=== PATIENT | male | born 1960 | race Caucasian/White ===

== ENCOUNTER → 2018-07-11 | Outpatient (CLI) | payer BC ==
[2018-07-11 14:29] LABS: HCT 47.2 % (39.0-53.0); HGB 16.3 gm/dL (13.0-17.5); MCH 29.5 pg (25.0-35.0); MCHC 34.5 g/dL (31.0-37.0); MCV 85.6 fL (80.0-100.0); Mean Platelet Volume 6.8; Platelet Count 249 k/uL (150-450); RBC 5.51 m/uL (4.30-5.90); RDW 14.2 % (11.5-15.5); WBC 7.7 k/uL (3.8-10.6)
[2018-07-11 14:38] LABS: INR 0.9 (<1.2); Partial Thromboplastin Time 24.8 sec (22.0-30.0); Prothrombin Time 9.6 sec (9.0-12.0)
[2018-07-11 14:43] LABS: Appearance,Urine Clear (Clear); Bilirubin,Urine Negative (Negative); Blood,Urine Negative (Negative); Color,Urine Yellow; Glucose,Urine (UA) Negative (Negative); Ketones,Urine Negative (Negative); Leukocyte Esterase,Urine Negative (Negative); Nitrite,Urine Negative (Negative); Protein,Urine Negative (Negative); Specific Gravity,Urine 1.016 (1.001-1.035); Urobilinogen,Urine <2.0 mg/dL (<2.0)
== END ==
LOC: LABPAT 13:05
PROVIDERS: ATTEND Orthopaedic Surgery
DX: Z01.812 Encounter for preprocedural laboratory examination (principal)
CPT/HCPCS: 81003; 85027; 85610; 85730; 87070

== ENCOUNTER → 2018-07-11 | Outpatient (CLI) | payer BC ==
[2018-07-11 18:46] LABS: Albumin 4.3 g/dL (3.80-4.90); Albumin/Globulin Ratio 2.26 (1.60-3.17); Anion Gap 12.2 mmol/L (4.00-12.00); Calcium 9.6 mg/dL (8.7-10.3); Carbon Dioxide 27.8 mmol/L (21.6-31.8); Globulin 1.9 g/dL (1.6-3.3); Potassium 3.2 mmol/L (3.5-5.5); Total Bilirubin 0.7 mg/dL (0.2-1.2); Total Protein 6.2 g/dL (6.2-8.2); Uric Acid 8.3 mg/dL (3.7-8.7)
== END | disposition home or self-care (01) ==
LOC: LABWHC1 12:55
PROVIDERS: ATTEND Family Medicine
DX: M10.9 Gout, unspecified (principal)
CPT/HCPCS: 36415; 80053; 84550

== ENCOUNTER 2018-07-18 10:58 | Inpatient (IN) | payer BC ==
[2018-07-19] MEDS ORDERED: ceFAZolin IN SWFI 2 GM/20 ML SYRINGE IVP ONE (05:00)
[2018-07-19] MEDS ORDERED: TRANEXAMIC ACID 1,000 MG in SODIUM CHLORIDE 0.9% 100 ML IVPB ONE ×4 (05:00)
[2018-07-19] MEDS ORDERED: MIDAZOLAM 2 MG/2 ML VIAL IV PRN (05:14)
[2018-07-19] MEDS ORDERED: DEXAMETHASONE SOD PHOSPHATE 10 MG/ML 1 ML VIAL IV ONE (05:14)
[2018-07-19] MEDS ORDERED: LIDOCAINE 1% 20 ML VIAL (10MG/ML) FOR IV START INTRADERMA PRN (05:14)
[2018-07-19] MEDS ORDERED: ONDANSETRON 4 MG/2 ML VIAL IVP ONE (05:14)
[2018-07-19] MEDS ORDERED: HYDROmorphone 0.5 MG/0.5 ML SYRINGE IVP PRN ×3 (05:14→09:09)
[2018-07-19] MEDS ORDERED: SCOPOLAMINE 1.5MG/72HR PATCH TRANSDERM ONE (05:14)
[2018-07-19] MEDS ORDERED: ROPIVACAINE 246.25 MG, EPINEPHrine 0.5 MG, KETOROLAC 30 MG, cloNIDine HCL/PF 80 MCG, WA... MISCELLANE ONE ×5 (05:53)
[2018-07-19] MEDS ORDERED: ACETAMINOPHEN TAB 500 MG TAB PO ONE (07:30)
[2018-07-19] MEDS ORDERED: MELOXICAM 7.5 MG TAB PO ONE (07:30)
[2018-07-19] MEDS: LACTATED RINGERS 1,000 ML IV SCH ×2 (08:04→09:33)
[2018-07-19] MEDS ORDERED: HYDROcodone/APAP 5-325MG 1 EACH TAB PO PRN (09:09)
[2018-07-19] MEDS ORDERED: HYDROmorphone 1 MG/ML 1 ML SYRINGE IVP PRN (09:09)
[2018-07-19] MEDS ORDERED: DIAZEPAM 5 MG TAB PO PRN (09:09)
[2018-07-19] MEDS ORDERED: NALOXONE 0.4 MG/ML 1 ML VIAL IV PRN (09:09)
[2018-07-19] MEDS ORDERED: MAGNESIUM HYDROXIDE 2,400 MG/10 ML CUP PO PRN (09:09)
[2018-07-19] MEDS ORDERED: ONDANSETRON 4 MG/2 ML VIAL IVP PRN (09:09)
[2018-07-19] MEDS ORDERED: HEPARIN SODIUM,PORCINE 10,000 UNIT/ML 1 ML VIAL ONE (09:39)
[2018-07-19] MEDS ORDERED: TRANEXAMIC ACID 1,000 MG/10 ML VIAL ONE (09:39)
[2018-07-19] MEDS ORDERED: SODIUM CHLORIDE 0.9% 100 ML BAG ONE (09:39)
[2018-07-19] MEDS ORDERED: PROPOFOL 10 MG/ML 20 ML VIAL IV ONE (09:39)
[2018-07-19] MEDS ORDERED: fentaNYL (PF) 50 MCG/ML 2 ML AMP ONE (09:39)
[2018-07-19] MEDS ORDERED: LACTATED RINGERS 1,000 ML BAG IV ONE (09:39)
[2018-07-19] MEDS ORDERED: MIDAZOLAM 2 MG/2 ML VIAL ONE (09:39)
[2018-07-19] MEDS ORDERED: ceFAZolin 3,000 MG in SODIUM CHLORIDE 0.9% IRRIGATIO 3,000 ML IRRIGATION ONE (09:44)
--- NOTE | 2018-07-19 11:26 | P.OP ---
Date of Procedure: 07/19/18 Preoperative Diagnosis: Severe osteoarthritis left hip Postoperative Diagnosis: Severe osteoarthritis left hip Procedure(s) Performed: Left total hip arthroplasty with a direct anterior approach Implants: Delgado and nephew Polarstem size 4 standard Delgado & Nephew R3, 3 hole acetabular shell, 56 mm Delgado & Nephew reflection 6.5 mm cancellus screw, 20 mm 2 Delgado & Nephew R3, XLPE 20 acetabular liner Delgado & Nephew Oxinium femoral head 36 m, +4 All components were press-fit. The articulation is Oxinium on polyethylene. Anesthesia: spinal Surgeon: Genaro Casey Sales Contractor #1: Amy Dorado Estimated Blood Loss (ml): 600 (210 mL returned with Cell Saver) Pathology: other (Femoral head) Condition: stable Disposition: PACU Indications for Procedure: After failure of conservative treatment we discussed the surgical and nonsurgical treatment options at length. Patient wishes to proceed with a total hip arthroplasty with a direct anterior approach. Complications specific to this procedure were discussed at length, including but not limited to infection, leg length discrepancy, dislocation, and nerve injury. Patient is aware of all these complications and informed consent was obtained Operative Findings: The operative findings are consistent with severe osteoarthritis of the left hip Description of Procedure: Patient was seen and evaluated in the preoperative area, consent was reviewed, and the surgical site was marked with a skin marker. Patient was then brought to the operating room and given prophylactic antibiotics intravenously. 1 g of Tranexamic acid was also given. A spinal anesthetic was administered by the anesthesia department. The patient was then placed on the Dupont table with the bony prominences well-padded. The hip area was then prepped and draped in usual sterile fashion. A universal timeout was then performed, which confirmed the patient's name, surgical site, ALLERGIES, and procedure being performed. Next the incision site was located at 1 cm distal and 1 cm lateral to the anterior superior iliac spine. The skin and subcutaneous tissues were sharply incised. Incision was carefully dissected down to the fascia overlying the tensor fascia florida muscle. This fascia was then incised in line with the incision. Next, using blunt finger dissection, the tensor fascia florida muscle was dissected off its investing fascia. The muscle was then carefully retracted laterally with a cobra retractor over the lateral neck of the femur. Next, the circumflex vessels were identified and cauterized using the AquaMantis device. The anterior hip capsule was then exposed. The capsule was then opened and an inverted T fashion. Cobra retractors were then placed intracapsularly. The proximal femur was then visualized. The femoral neck was then osteotomized appropriate level above the lesser trochanter. Small amount of traction was placed with the Dupont table. A small wedge of bone was then removed from the remaining femoral head. Next, using a corkscrew femoral head was easily removed from the acetabulum. On gross visual inspection, the femoral head had complete loss of articular cartilage in multiple periarticular osteophytes. Attention was then turned to the acetabulum. the acetabulum was exposed and any remaining labrum was excised. Sequential reaming of the acetabulum was performed using fluoroscopic guidance. When the appropriate size was reached, a trial was then placed. The position and fit of the trial was checked with fluoroscopy. The trial was then removed. Then, using fluoroscopic guidance, the final implant was impacted at 20 of anteversion and 40 of abduction, and fully seated in the acetabulum. 2 screws were then placed in the acetabulum. Again fluoroscopy was used to check position of the screws. Next, the liner was then impacted, with a 20 elevated liner located in the anterior superior quadrant. Component locking was confirmed. Attention was then directed to the femur. With the aid of the Dupont table, the femur was externally rotated to approximately 130, extended, and abducted under the opposite leg. A side hook was then placed under the proximal femur, and the side hook elevator was used to elevate the proximal femur. Retractors were then placed. A capsular release was performed, as well as a release of the conjoined tendon, which afforded excellent visualization of the proximal femur. Next, a box osteotome was used to lateralize the proximal femur. A aging room hand was then used to locate the femoral canal. Sequential broaching was then performed with appropriate size which afforded excellent fixation in the proximal femur. A trial was then placed with appropriate head and neck, and the hip was gently reduced with the aid of the Dupont table. Fluoroscopy was then used to check position of the components, as well as to ensure equal leg lengths. The hip was then gently dislocated and the trials were then removed. Final implants were then impacted and the hip was again reduced. Final fluoroscopic x-rays confirmed that the components were in anatomic position, as well as equal leg lengths. The hip was also taken through range of motion, and found to be stable. The hip was then copiously irrigated with antibiotic solution with pulsatile lavage. The hip was then irrigated with Irrisept solution. The soft tissues were then injected with a ropivacaine solution, which consisted of 246.25 mg of ropivacaine, 0.5 mg of epinephrine, 30 mg of Toradol, 80 g of clonidine, and 48.45 mL of sterile water, for a total of 100 mL of fluid injected. A second dose of 1 g of Tranexamic acid was also given. the fascia was then closed with 2-0 strata fix suture. The subcutaneous tissue was closed with 3-0 Vicryl. The subcuticular tissue was closed with 3-0 strata fix suture. The skin was then closed with Dermabond glue and a sterile silver dressing. The patient was then transferred to the recovery room in stable condition. The broker assistant CARISSA Cardenas was required due to the complexity of surgery, and the need for skilled surgical territory manager for positioning, draping, exposure, retraction, and closure of the wound.
[2018-07-19] MEDS ORDERED: LACTATED RINGERS 1,000 ML IV ONE (11:51)
--- NOTE | 2018-07-19 12:33 | XR ---
EXAMINATION TYPE: XR Hip Limited LT DATE OF EXAM: 07/19/2018 COMPARISON: NONE HISTORY: 57-year-old male status post hip surgery, assess surgical alignment TECHNIQUE: Single AP view FINDINGS: Image shows placement of left hip total arthroplasty. Both acetabular cup and femoral short stemmed c omponents of the prosthesis are well-seated and no periprosthetic fracture. There is some prominent o verhanging bone along the lateral aspect of the acetabular cup component. Alignment grossly anatomic. Scattered soft tissue air related to recent operation. IMPRESSION: Uncomplicated postoperative appearance left total hip arthroplasty.
[2018-07-19] MEDS: SODIUM CHLORIDE 0.9% 1,000 ML IV SCH (12:57)
[2018-07-19 13:15] VITALS: BMI 35.6
--- NOTE | 2018-07-19 13:22 | XR ---
Limited left hip HISTORY: Hip replacement 2 intraoperative C-arm images document the procedure.
--- NOTE | 2018-07-19 13:22 | FL ---
Fluoroscopy HISTORY: Hip replacement 63 seconds fluoroscopy time supplied to the referring clinician. 2 intraoperative C-arm images docum ent the procedure. See dictated report from orthopedic surgery.
[2018-07-19] MEDS: ceFAZolin IN SWFI 2 GM/20 ML SYRINGE IVP SCH (16:00)
[2018-07-19] MEDS: HYDROcodone/APAP 5-325MG 1 EACH TAB PO PRN ×2 (17:44→22:49)
[2018-07-19] MEDS: ASPIRIN 325 MG TAB PO SCH (20:40)
[2018-07-19] MEDS ORDERED: SENNOSIDES-DOCUSATE SODIUM 1 EACH TAB PO SCH (21:00)
[2018-07-19] MEDS: hydrOXYzine PAMOATE 25 MG CAP PO PRN (22:49)
[2018-07-20] MEDS: ceFAZolin IN SWFI 2 GM/20 ML SYRINGE IVP SCH (00:12)
[2018-07-20] MEDS: SODIUM CHLORIDE 0.9% 1,000 ML IV SCH (00:14)
--- NOTE | 2018-07-20 02:51 | CONS ---
CONSULTATION DATE OF CONSULTATION: July 19, 2018. REASON FOR CONSULTATION: Medical management requested by Dr. Casey. CONSULTATION: This is a pleasant 57-year-old patient of Dr. Trivedi who has undergone a left total hip arthroplasty. Postprocedure pain is controlled. No nausea, vomiting. No chest pain. Denies any cardiac history. Patient lying in bed. The patient's pain has been coming on for some time, progressively got worse, necessitating the need for orthopedic surgery. Patient had been taking pain medications. It was worse with activity and better with rest. REVIEW OF SYSTEMS: CONSTITUTIONAL: None. HEENT: None. RESPIRATORY: None. CARDIOVASCULAR: None. GASTROINTESTINAL: None. GENITOURINARY: None. MUSCULOSKELETAL: Arthritic pain in the joints. DERMATOLOGICAL, HEMATOLOGIC, LYMPHATIC: none. PSYCHIATRY none. NEUROLOGICAL: None. PAST MEDICAL HISTORY: Of hypertension,osteoarthritis, skin cancer, bleeding from the colon. PAST SURGICAL HISTORY: Colonoscopy, hemorrhoidectomy, vasectomy, carpal tunnel to the left wrist. SOCIAL HISTORY: Does not smoke or drink alcohol. FAMILY HISTORY: Reviewed. Noncontributory to presentation. HOME MEDICATIONS: 1. Potassium 20 mEq a day. 2. Omeprazole 20 mg a day. 3. Motrin 800 mg q.h.s. p.r.n. 4. Hydrochlorothiazide 25 mg a day. 5. Allopurinol 100 mg a day. 6. Tylenol 650 mg q.6h. ALLERGIES: None. PHYSICAL EXAMINATION: VITAL SIGNS: Temperature 97.5, pulse 100, respiration 17, blood pressure 116/72, pulse ox 93 percent on room air. GENERAL APPEARANCE: Well built. BMI 34.9. Lying in bed, awake. Comfortable. EYES: Pupils are equal. Conjunctivae normal. HEENT: External appearance of nose and ears normal. Oral cavity normal. NECK: JVD not raised. Mass not palpable. RESPIRATORY: Effort normal. LUNGS: Are clear. CARDIOVASCULAR: 1st and 2nd sounds normal. No edema. ABDOMEN: Soft, nontender. Liver and spleen not palpable. PSYCHIATRY: Alert and oriented x3. Mood and affect normal. NEUROLOGICAL: Pupils equal. Cranial nerves grossly intact. Power and sensation grossly intact. EXTREMITIES: Dressing over the left hip. INVESTIGATIONS: Lab work from 07/11/2018, white count 7.7, hemoglobin 15.3, potassium 3.2, repeat 3.4, creatinine 1.0. ASSESSMENT: 1. Left total knee arthroplasty. 2. Obesity, BMI 34.9. 3. Essential hypertension. 4. Primary osteoarthritis. PLAN: Home medications are resumed. The patient is on aspirin for DVT prophylaxis. Pain control is in place. Getting IV fluids. Venodyne boots in place. Care was discussed with the patient. Questions were answered. Thank you Dr. Casey. Copy to Dr. Trivedi. MMODL / IJN: [id number] /
[2018-07-20] MEDS: ASPIRIN 325 MG TAB PO SCH (07:31)
[2018-07-20] MEDS: hydrOXYzine PAMOATE 25 MG CAP PO PRN (07:31)
[2018-07-20] MEDS: HYDROcodone/APAP 5-325MG 1 EACH TAB PO PRN (07:31)
[2018-07-20 08:09] LABS: Basophils % (A) 0 %; Eosinophils % (A) 0 %; HCT 37.5 % (39.0-53.0); Lymphocytes # (A) 1.3 k/uL (1.0-4.8); Lymphocytes % (A) 9 %; MCH 29.2 pg (25.0-35.0); MCHC 34.1 g/dL (31.0-37.0); MCV 85.6 fL (80.0-100.0); Mean Platelet Volume 7.1; Monocytes # (A) 0.8 k/uL (0-1.0); Monocytes % (A) 5 %; Neutrophils # (A) 12.6 k/uL (1.3-7.7); Neutrophils % (A) 85 %; Platelet Count 264 k/uL (150-450); RBC 4.39 m/uL (4.30-5.90); RDW 13.8 % (11.5-15.5); WBC 14.9 k/uL (3.8-10.6)
[2018-07-20 08:13] LABS: HGB 12.8 gm/dL (13.0-17.5)
--- NOTE | 2018-07-20 08:40 | P.DS ---
Providers Date of admission: 07/19/18 07:42 Expected date of discharge: 07/20/18 Attending physician: Genaro Casey Consults: 07/19/18 09:09 Consult Physician Routine Consulting Provider: Victor Manuel Trivedi Consult Reason/Comments: medical management Do you want consulting provider notified?: Yes 07/19/18 12:02 Consult Physician Routine Consulting Provider: Mateusz Galarza Consult Reason/Comments: medical managment Do you want consulting provider notified?: Yes Primary care physician: Victor Manuel Trivedi - Discharge Diagnosis(es) (1) Osteoarthritis of left hip Current Visit: Yes Status: Acute (2) Status post total hip replacement, left Current Visit: Yes Status: Acute Hospital Course: This is a 57-year-old male with known history of degenerative arthritis of the left hip. The patient presents for evaluation. After discussion and consideration patient elects to proceed with total hip arthroplasty. The patient is seen preoperatively by Dr. Casey and medically cleared for surgery by their primary care physician. Patient is admitted to [facility] on 07/19/2018 for total hip arthroplasty. The procedures performed without complication or sequelae. The patient is doing well postoperatively. Labs and vital signs are stable on day of discharge. On day of discharge patient's hip incision is healing well. There is minimal erythema. There is no drainage noted at this time. There is minimal soft tissue swelling to the hip and thigh. Patient has full foot and ankle motion without difficulty or pain. Calf is soft and nontender to palpation. Neurovascular status to the left lower extremity is intact. Patient is discharged home in good condition. Opioid start talking form is reviewed and signed at patient bedside. Please see med rec for accurate list of home medications. Plan - Discharge Summary Discharge Rx Participant: No New Discharge Prescriptions: New Aspirin 325 mg PO BID #60 tab HYDROcodone/APAP 5-325MG [[place] 5-325] 1 - 2 tab PO Q6HR PRN #56 tab PRN Reason: Pain Sennosides [Senokot] 1 tab PO BID #60 tablet No Action Ibuprofen [Motrin Ib] 800 mg PO HS PRN PRN Reason: Pain Hydrochlorothiazide 25 mg PO DAILY Allopurinol [Zyloprim] 100 - 300 mg PO DAILY Acetaminophen Tab [Tylenol Tab] 650 mg PO Q6H PRN PRN Reason: Pain Omeprazole 20 mg PO DAILY Potassium Bicarbonate/Cit AC [Potassium 25 Meq Tablet Eff] 1 tab PO DAILY Discharge Medication List Acetaminophen Tab [Tylenol Tab] 650 mg PO Q6H PRN 07/12/18 [History] Allopurinol [Zyloprim] 100 - 300 mg PO DAILY 07/12/18 [History] Hydrochlorothiazide 25 mg PO DAILY 07/12/18 [History] Ibuprofen [Motrin Ib] 800 mg PO HS PRN 07/12/18 [History] Omeprazole 20 mg PO DAILY 07/19/18 [History] Potassium Bicarbonate/Cit AC [Potassium 25 Meq Tablet Eff] 1 tab PO DAILY 07/19/18 [History] Aspirin 325 mg PO BID #60 tab 07/20/18 [Rx] HYDROcodone/APAP 5-325MG [[place] 5-325] 1 - 2 tab PO Q6HR PRN #56 tab 07/20/18 [Rx] Sennosides [Senokot] 1 tab PO BID #60 tablet 07/20/18 [Rx] Follow up Appointment(s)/Referral(s): Genaro Casey DO [Doctor of Osteopathic Medicine] - 2 Weeks Activity/Diet/Wound Care/Special Instructions: Weightbearing as tolerated with walker. Leave dressing intact. Dressing may be removed by home care nurse or by patient in 10 days. May shower with dressing on. Please follow-up with [facility] in 2 weeks and call with any questions or concerns, . Discharge Disposition: HOME WITH HOME HEALTH SERVICES
[2018-07-20] MEDS ORDERED: MELOXICAM 7.5 MG TAB PO SCH (09:00)
[2018-07-20 09:11] VITALS: BP 133/78; PULSE 78; RESP 16; TEMP 98.2
== END 2018-07-20 11:07 | disposition home health service (06) | DRG 470 ==
LOC: 2ORMAIN 07-19 07:42 → 4SSUR 07-19 11:55
PROVIDERS: ADMIT Orthopaedic Surgery; ATTEND Orthopaedic Surgery
PROC: 30233N0 Transfusion of Autologous Red Blood Cells into Peripheral Vein, Percutaneous Approach (ICD-10-PCS; 2018-07-19)
PROC: 0SRB06A Replacement of Left Hip Joint with Oxidized Zirconium on Polyethylene Synthetic Substitute, Uncemented, Open Approach (ICD-10-PCS; principal; 2018-07-19 09:20)
DX: M16.12 Unilateral primary osteoarthritis, left hip (principal); I10 Essential (primary) hypertension; Z68.34 Body mass index [BMI] 34.0-34.9, adult; E66.9 Obesity, unspecified; Z79.899 Other long term (current) drug therapy; Z85.828 Personal history of other malignant neoplasm of skin; Z82.49 Family history of ischemic heart disease and other diseases of the circulatory system
CPT/HCPCS: 73501; 84132; 85025; 86850; 86891; 86900; 86901; 88300

== ENCOUNTER 2018-07-25 19:15 | Inpatient (IN) | payer BC ==
[2018-07-25] MEDS ORDERED: chlorproMAZINE 25 MG/ML 2 ML AMP IM STA (19:46)
[2018-07-25 19:59] LABS: Basophils # (A) 0.1 k/uL (0-0.2); Basophils % (A) 1 %; Eosinophils # (A) 0.5 k/uL (0-0.7); Eosinophils % (A) 3 %; HCT 40.1 % (39.0-53.0); HGB 13.7 gm/dL (13.0-17.5); Lymphocytes # (A) 1.7 k/uL (1.0-4.8); Lymphocytes % (A) 11 %; MCH 28.9 pg (25.0-35.0); MCHC 34.1 g/dL (31.0-37.0); MCV 84.7 fL (80.0-100.0); Mean Platelet Volume 6.3; Monocytes # (A) 0.7 k/uL (0-1.0); Monocytes % (A) 4 %; Neutrophils # (A) 12.3 k/uL (1.3-7.7); Neutrophils % (A) 80 %; Platelet Count 457 k/uL (150-450); RBC 4.74 m/uL (4.30-5.90); RDW 13.7 % (11.5-15.5); WBC 15.4 k/uL (3.8-10.6)
--- NOTE | 2018-07-25 19:59 | ED ---
SOB HPI - General Source: patient, RN notes reviewed Mode of arrival: ambulatory Limitations: no limitations - History of Present Illness MD Complaint: shortness of breath <Michael Mcconnell - Last Filed: 07/25/18 21:08> <Paloma Au - Last Filed: 07/25/18 23:39> - General Chief Complaint: Shortness of Breath Stated Complaint: sob, hiccups following hip Sx Time Seen by Provider: 07/25/18 19:36 - History of Present Illness Initial Comments: This a 57-year-old male who had a left hip replacement done 6 days ago who since that time is had hiccups with last several days being constant. This morning he had diaphoretic pale and started developing shortness of breath. He was seen by his doctor. EKG which apparently looked okay his some blood work which is okay. But again he had profound sweats and clamminess per his . He also has some anterior chest and abdominal pain he thinks likely because of the hiccups. Never had this before he does have a ventral hernia states his abdomen. He does apparently have clotting tendencies he states was blood. He has a history of GI bleed in the past. He currently is not on any anticoagulants. His other complaints at this time (Michael Mcconnell) - Related Data Home Medications Medication Instructions Recorded Confirmed Allopurinol [Zyloprim] 100 mg PO TID 07/12/18 07/25/18 Chlorthalidone 25 mg PO DAILY 07/25/18 07/25/18 Omeprazole [PriLOSEC] 40 mg PO DAILY 07/25/18 07/25/18 Potassium Chloride [Klor-Con 10] 10 meq PO DAILY 07/25/18 07/25/18 Sennosides [Senokot] 1 tab PO DAILY 07/25/18 07/25/18 Previous Rx's Medication Instructions Recorded Aspirin 325 mg PO BID #60 tab 07/20/18 HYDROcodone/APAP 5-325MG [[place] 1 - 2 tab PO Q6HR PRN #56 tab 07/20/18 5-325] Allergies Allergy/AdvReac Type Severity Reaction Status Date / Time No Known Allergies Allergy Verified 07/25/18 20:04 Review of Systems ROS Other: All systems not noted in ROS Statement are negative. <Michael Mcconnell - Last Filed: 07/25/18 21:08> ROS Other: All systems not noted in ROS Statement are negative. <Paloma Au Shanice - Last Filed: 07/25/18 23:39> ROS Statement: Those systems with pertinent positive or pertinent negative responses have been documented in the HPI. Past Medical History Past Medical History: Cancer, Hypertension, Osteoarthritis (OA) Additional Past Medical History / Comment(s): SKIN CANCER ," HAD BLEEDING FROM COLON HIGH DOSE OF ASPIRIN HISTORY, History of Any Multi-Drug Resistant Organisms: None Reported Past Surgical History: Orthopedic Surgery Additional Past Surgical History / Comment(s): COLONOSCOPY, HEMORRHOIDECTOMY, VASECTOMY, CARPAL TUNNEL LEFT WRIST, left hip surgery Past Anesthesia/Blood Transfusion Reactions: No Reported Reaction Past Psychological History: No Psychological Hx Reported Smoking Status: Never smoker Past Alcohol Use History: None Reported Past Drug Use History: None Reported - Past Family History Mother Family Medical History: No Reported History <Michael Mcconnell - Last Filed: 07/25/18 21:08> General Exam Limitations: no limitations General appearance: alert, anxious Head exam: Present: atraumatic, normocephalic, normal inspection Eye exam: Present: normal appearance, PERRL, EOMI. Absent: scleral icterus, conjunctival injection, periorbital swelling ENT exam: Present: normal exam, mucous membranes moist Neck exam: Present: normal inspection. Absent: tenderness, meningismus, lymphadenopathy Respiratory exam: Present: normal lung sounds bilaterally. Absent: respiratory distress, wheezes, rales, rhonchi, stridor Cardiovascular Exam: Present: regular rate, normal rhythm, normal heart sounds. Absent: systolic murmur, diastolic murmur, rubs, gallop, clicks GI/Abdominal exam: Present: soft, normal bowel sounds, other (Bentyl hernia as noted). Absent: distended, tenderness, guarding, rebound, rigid Extremities exam: Present: normal inspection, full ROM, normal capillary refill. Absent: tenderness, pedal edema, joint swelling, calf tenderness Back exam: Present: normal inspection Neurological exam: Present: alert, oriented X3, CN II-XII intact Psychiatric exam: Present: normal affect, normal mood Skin exam: Present: warm, intact, normal color, diaphoretic. Absent: rash <Michael Mcconnell - Last Filed: 07/25/18 21:08> - General Exam Comments Initial Comments: This is a well-developed well-nourished awake alert oriented 3 male the patient demonstrating hiccups at this time. He was prescribed Bentyl without any relief. (Michael Mcconnell) Course Vital Signs 07/25/18 07/25/18 07/25/18 19:18 19:21 20:43 Temperature 98.6 F Pulse Rate 98 Respiratory 18 18 20 Rate Blood Pressure 135/88 O2 Sat by Pulse 100 Oximetry Medical Decision Making - Lab Data Result diagrams: 07/25/18 19:50 07/25/18 19:50 - EKG Data -: EKG Interpreted by Me EKG shows normal: sinus rhythm (Sinus rhythm with marked amount of artifact rate was 90. Interval 160 QRS duration 94 QT since QTC 476/[address] configuration prolonged QT EKG performed during the patient having recurrent hiccups) <Michael Mcconnell - Last Filed: 07/25/18 21:08> - Lab Data Result diagrams: 07/25/18 19:50 07/25/18 19:50 <Paloma Au - Last Filed: 07/25/18 23:39> - Medical Decision Making Patient care was signed out to me by Dr. Mcconnell, patient presented with intractible hiccups for 6 days s/p hip surgery, today patient had episode of chest pain, diaphoresis and SOB. Asians initial EKG was nonischemic, troponin was negative d-dimer was significantly elevated, at the time of sign out patient was hemodynamically stable awaiting computed tomography scan results. Computed tomography scan resulted with no acute pulmonary pathology. Patient was treated with Valium for consistent hiccups. When the patient's age and risk factors I discussed with the patient and he was agreeable with the plan for observation for further evaluation of chest pain. (Paloma Au) - Lab Data Lab Results 07/25/18 07/25/18 07/25/18 Range/Units 19:50 19:50 19:50 WBC 15.4 H (3.8-10.6) k/uL RBC 4.74 (4.30-5.90) m/uL Hgb 13.7 (13.0-17.5) gm/dL Hct 40.1 (39.0-53.0) % MCV 84.7 (80.0-100.0) fL MCH 28.9 (25.0-35.0) pg MCHC 34.1 (31.0-37.0) g/dL RDW 13.7 (11.5-15.5) % Plt Count 457 H (150-450) k/uL Neutrophils % 80 % Lymphocytes % 11 % Monocytes % 4 % Eosinophils % 3 % Basophils % 1 % Neutrophils # 12.3 H (1.3-7.7) k/uL Lymphocytes # 1.7 (1.0-4.8) k/uL Monocytes # 0.7 (0-1.0) k/uL Eosinophils # 0.5 (0-0.7) k/uL Basophils # 0.1 (0-0.2) k/uL PT 9.4 (9.0-12.0) sec INR 0.9 (<1.2) APTT 25.4 (22.0-30.0) sec D-Dimer 4.06 H (<0.60) mg/L FEU Sodium 138 (137-145) mmol/L Potassium 3.4 L (3.5-5.1) mmol/L Chloride 97 L (98-107) mmol/L Carbon Dioxide 29 (22-30) mmol/L Anion Gap 12 mmol/L BUN 21 H (9-20) mg/dL Creatinine 0.91 (0.66-1.25) mg/dL Est GFR (CKD-EPI)AfAm >90 (>60 ml/min/1.73 sqM) Est GFR (CKD-EPI)NonAf >90 (>60 ml/min/1.73 sqM) Glucose 113 H (74-99) mg/dL Calcium 9.6 (8.4-10.2) mg/dL Total Bilirubin 1.2 (0.2-1.3) mg/dL AST 44 (17-59) U/L ALT 58 (21-72) U/L Alkaline Phosphatase 96 (38-126) U/L Troponin I (0.000-0.034) ng/mL NT-Pro-B Natriuret Pep pg/mL Total Protein 6.7 (6.3-8.2) g/dL Albumin 3.9 (3.5-5.0) g/dL 07/25/18 07/25/18 Range/Units 19:50 19:50 WBC (3.8-10.6) k/uL RBC (4.30-5.90) m/uL Hgb (13.0-17.5) gm/dL Hct (39.0-53.0) % MCV (80.0-100.0) fL MCH (25.0-35.0) pg MCHC (31.0-37.0) g/dL RDW (11.5-15.5) % Plt Count (150-450) k/uL Neutrophils % % Lymphocytes % % Monocytes % % Eosinophils % % Basophils % % Neutrophils # (1.3-7.7) k/uL Lymphocytes # (1.0-4.8) k/uL Monocytes # (0-1.0) k/uL Eosinophils # (0-0.7) k/uL Basophils # (0-0.2) k/uL PT (9.0-12.0) sec INR (<1.2) APTT (22.0-30.0) sec D-Dimer (<0.60) mg/L FEU Sodium (137-145) mmol/L Potassium (3.5-5.1) mmol/L Chloride (98-107) mmol/L Carbon Dioxide (22-30) mmol/L Anion Gap mmol/L BUN (9-20) mg/dL Creatinine (0.66-1.25) mg/dL Est GFR (CKD-EPI)AfAm (>60 ml/min/1.73 sqM) Est GFR (CKD-EPI)NonAf (>60 ml/min/1.73 sqM) Glucose (74-99) mg/dL Calcium (8.4-10.2) mg/dL Total Bilirubin (0.2-1.3) mg/dL AST (17-59) U/L ALT (21-72) U/L Alkaline Phosphatase (38-126) U/L Troponin I <0.012 (0.000-0.034) ng/mL NT-Pro-B Natriuret Pep 20 pg/mL Total Protein (6.3-8.2) g/dL Albumin (3.5-5.0) g/dL Disposition <Michael Mcconnell - Last Filed: 07/25/18 21:08> <Paloma Au - Last Filed: 07/25/18 23:39> Referrals: Victor Manuel Trivedi MD [Primary Care Provider] - 1-2 days
[2018-07-25 20:13] LABS: INR 0.9 (<1.2); Partial Thromboplastin Time 25.4 sec (22.0-30.0); Prothrombin Time 9.4 sec (9.0-12.0)
[2018-07-25 20:15] LABS: ALT 58 U/L (21-72); AST 44 U/L (17-59); Albumin 3.9 g/dL (3.5-5.0); Alkaline Phosphatase 96 U/L (38-126); Anion Gap 12 mmol/L; Blood Urea Nitrogen 21 mg/dL (9-20); Calcium 9.6 mg/dL (8.4-10.2); Carbon Dioxide 29 mmol/L (22-30); Chloride 97 mmol/L (98-107); Glucose 113 mg/dL (74-99); Potassium 3.4 mmol/L (3.5-5.1); Sodium 138 mmol/L (137-145); Total Bilirubin 1.2 mg/dL (0.2-1.3); Total Protein 6.7 g/dL (6.3-8.2)
[2018-07-25 20:21] LABS: D-Dimer 4.06 mg/L FEU (<0.60)
--- NOTE | 2018-07-25 20:37 | XR ---
EXAMINATION TYPE: XR chest 2V DATE OF EXAM: 07/25/2018 COMPARISON: NONE HISTORY: Shortness of breath. Recent surgery. TECHNIQUE: Frontal and lateral views of the chest are obtained. FINDINGS: Overlying EKG leads are seen. There is no focal air space opacity, pleural effusion, or pn eumothorax seen. The cardiac silhouette size is within normal limits. Bridging osteophytes in thorac ic spine are noted. IMPRESSION: No acute cardiopulmonary process.
[2018-07-25] MEDS ORDERED: DIAZEPAM 5 MG TAB PO STA (22:01)
--- NOTE | 2018-07-25 22:12 | CT ---
EXAMINATION TYPE: CT angio chest DATE OF EXAM: 07/25/2018 COMPARISON: CT chest May 20, 2012 HISTORY: Dyspnea and hiccups. CT DLP: 528.2 mGycm. Automated Exposure Control for Dose Reduction was Utilized. CONTRAST: CTA scan of the thorax is performed with IV Contrast, patient injected with 75ml mL of Isovue 370, pu lmonary embolism protocol. MIP Images are created on CT scanner and reviewed. FINDINGS: LUNGS: Dependent atelectasis bilateral lower lungs is present. No suspicious focal consolidation is s een. No pleural effusion or pneumothorax is noted bilaterally. No suspicious pulmonary masses are see n. MEDIASTINUM: There is satisfactory enhancement of the pulmonary artery and its branches, there is no CT evidence for pulmonary embolism. There are no greater than 1 cm hilar or mediastinal lymph nodes. No cardiomegaly or pericardial effusion is seen. Main pulmonary artery is dilated at 3.3 cm axial image 59. Adjacent ascending aorta measures up to 3.7 cm in diameter. OTHER: Small hiatal hernia is present. There are a few hypodense lesions scattered throughout the terri er likely reflecting thin-walled cysts, there is a more nodular peripheral enhancing lesion favoring small hemangioma near largest thin-walled cyst right hepatic lobe posterior segment axial image 138. There is probable second similar smaller lesion inferior to this near axial image 146. [id number] roverto multilevel spurring in the thoracic spine is present. IMPRESSION: 1. No CT evidence for acute pulmonary embolism. 2. No suspicious acute pulmonary process. 3. Nonspecific right hepatic liver lesion slightly larger from prior study, suspect hemangioma adjace nt to thin-walled cyst.
[2018-07-25] MEDS ORDERED: NALOXONE 0.4 MG/ML 1 ML VIAL IV PRN (22:44)
[2018-07-25] MEDS ORDERED: diphenhydrAMINE 50 MG/ML 1 ML VIAL IVP STA (22:48)
[2018-07-25] MEDS ORDERED: METOCLOPRAMIDE 5 MG/ML 2 ML VIAL IVP STA (22:48)
[2018-07-26] MEDS: LORazepam 2 MG/ML INJ IV PRN ×3 (04:03→20:38)
[2018-07-26 09:10] VITALS: BMI 35.4
--- NOTE | 2018-07-26 09:44 | P.CRDCN ---
History of Present Illness Consult date: 07/26/18 Requesting physician: Mateusz Galarza Consult reason: shortness of breath Chief complaint: Hiccups History of present illness: This is a pleasant 57-year-old gentleman who underwent left hip surgery on Wednesday of last week, since then he has had constant hiccups. Patient also has been having episodes of shortness of breath which the states is unsure if it's related to the head, Had an Episode Where He Became Diaphoretic and Pale. For This Reason He Was Brought to the Hospital for Further Evaluation. Patient Does Have a History of a Blood Clotting Disorder, He States That He Was Put on 2 Aspirins a Proximally 15 Years Ago and Had GI Bleeding. He Also Has a History of a Ventral Hernia. Patient Has a Strong Family History of Premature Coronary Artery Disease in His Father Who Had a Myocardial Infarction at the Age of 40. He Is a Nonsmoker, No Hypertension, No Diabetes, No Hyperlipidemia. Chest X-Ray Does Not Reveal Any Acute Cardiopulmonary Process. CTA of the Chest Was Performed on Arrival Here Which Was Negative for PE. EKGs were difficult to obtain because of the hiccups, overall shows normal sinus rhythm with no acute changes. Blood pressure 134/80 with a heart rate in the 80s, 95% on room air. Low-grade temperature last evening of 99.7. White blood cell count 15.4, hemoglobin 13.7, platelet count 457. D-dimer 4.0, sodium 138, potassium 3.4, BUN 21 and creatinine 0.9. Initial troponin 0.012. Patient was started on Thorazine, Valium, Benadryl, and Ativan in hopes to control the hiccups. Past Medical History Past Medical History: Cancer, Hypertension, Osteoarthritis (OA) Additional Past Medical History / Comment(s): SKIN CANCER ," HAD BLEEDING FROM COLON HIGH DOSE OF ASPIRIN HISTORY, History of Any Multi-Drug Resistant Organisms: None Reported Past Surgical History: Orthopedic Surgery Additional Past Surgical History / Comment(s): COLONOSCOPY, HEMORRHOIDECTOMY, VASECTOMY, CARPAL TUNNEL LEFT WRIST, left hip surgery Past Anesthesia/Blood Transfusion Reactions: No Reported Reaction Past Psychological History: No Psychological Hx Reported Smoking Status: Never smoker Past Alcohol Use History: None Reported Past Drug Use History: None Reported - Past Family History Mother Family Medical History: No Reported History Medications and Allergies Home Medications Medication Instructions Recorded Confirmed Type Allopurinol [Zyloprim] 100 mg PO TID 07/12/18 07/25/18 History Aspirin 325 mg PO BID #60 tab 07/20/18 07/25/18 Rx HYDROcodone/APAP 5-325MG [[place] 1 - 2 tab PO Q6HR PRN #56 tab 07/20/18 07/25/18 Rx 5-325] Chlorthalidone 25 mg PO DAILY 07/25/18 07/25/18 History Omeprazole [PriLOSEC] 40 mg PO DAILY 07/25/18 07/25/18 History Potassium Chloride [Klor-Con 10] 10 meq PO DAILY 07/25/18 07/25/18 History Sennosides [Senokot] 1 tab PO DAILY 07/25/18 07/25/18 History Allergies Allergy/AdvReac Type Severity Reaction Status Date / Time No Known Allergies Allergy Verified 07/25/18 20:04 Physical Exam Vitals: Vital Signs Temp Pulse Pulse Resp BP BP Pulse Ox 07/26/18 09:07 98.6 F 82 18 134/80 95 07/26/18 06:18 99.7 F H 91 16 146/82 95 07/26/18 05:50 98.6 F 86 19 119/78 98 07/26/18 04:00 89 16 125/82 94 L 07/25/18 23:59 82 18 134/68 99 07/25/18 20:43 20 07/25/18 19:21 18 07/25/18 19:18 98.6 F 98 18 135/88 100 Intake and Output 07/25/18 07/26/18 07/26/18 22:59 06:59 14:59 Other: Weight 115.212 kg 112.9 kg PHYSICAL EXAMINATION: GENERAL: 57-year-old gentleman in no acute distress at the time of my examination, he is having frequent hiccups. HEENT: Head is atraumatic, normocephalic. Pupils equal, round. Sclera a nicteric. Conjunctiva are clear. Mucous membranes of the mouth are moist. Neck is supple. There is no elevated jugular venous pressure no carotid bruit is heard. HEART EXAMINATION: Heart S1, S2 normal. No murmur or gallop heard. CHEST EXAMINATION: Lungs are clear to auscultation and precussion. No chest wall tenderness is noted on palpation or with deep breathing. ABDOMEN: Soft, nontender. Bowel sounds are heard. No organomegaly noted. EXTREMITIES: 2+ peripheral pulses with no evidence of peripheral edema and no calf tenderness noted. NEUROLOGIC patient is awake, alert and oriented 3 . . Results 07/25/18 19:50 07/25/18 19:50 Cardiac Enzymes 07/25/18 07/25/18 Range/Units 19:50 19:50 AST 44 (17-59) U/L Troponin I <0.012 (0.000-0.034) ng/mL Coagulation 07/25/18 Range/Units 19:50 PT 9.4 (9.0-12.0) sec APTT 25.4 (22.0-30.0) sec CBC 07/25/18 Range/Units 19:50 WBC 15.4 H (3.8-10.6) k/uL RBC 4.74 (4.30-5.90) m/uL Hgb 13.7 (13.0-17.5) gm/dL Hct 40.1 (39.0-53.0) % Plt Count 457 H (150-450) k/uL Comprehensive Metabolic Panel 07/25/18 Range/Units 19:50 Sodium 138 (137-145) mmol/L Potassium 3.4 L (3.5-5.1) mmol/L Chloride 97 L (98-107) mmol/L Carbon Dioxide 29 (22-30) mmol/L BUN 21 H (9-20) mg/dL Creatinine 0.91 (0.66-1.25) mg/dL Glucose 113 H (74-99) mg/dL Calcium 9.6 (8.4-10.2) mg/dL AST 44 (17-59) U/L ALT 58 (21-72) U/L Alkaline Phosphatase 96 (38-126) U/L Total Protein 6.7 (6.3-8.2) g/dL Albumin 3.9 (3.5-5.0) g/dL Current Medications Generic Name Dose Route Start Last Admin Trade Name Freq PRN Reason Stop Dose Admin Lorazepam 0.5 mg 07/25/18 22:44 07/26/18 08:58 Ativan IV 0.5 mg Q6HR PRN Administration Anxiety Naloxone HCl 0.2 mg 07/25/18 22:44 Narcan IV Q2M PRN Opioid Reversal Intake and Output 07/25/18 07/26/18 07/26/18 22:59 06:59 14:59 Other: Weight 115.212 kg 112.9 kg 07/25/18 19:50 07/25/18 19:50 EKG Interpretations (text) EKG shows normal sinus rhythm with nonspecific ST-T wave changes, significant amount of artifact secondary to hiccups Assessment and Plan Plan: Assessment and plan #1 pickups, with a brief episode of shortness of breath with associated diaphoresis. CTA of the chest negative for pulmonary embolism. EKG shows normal sinus rhythm with nonspecific ST-T wave changes and significant amount of artifact secondary to headache. Troponin 1 negative #2 family history of premature coronary artery disease #3 recent left hip surgery one week ago #4 persistent hiccups for one week duration Plan Patient's presentation does not appear to be cardiac in nature. We will obtain an echocardiogram with Doppler study and 2 subsequent troponins. Further recommendations to follow. DNP note has been reviewed, I agree with a documented findings and plan of care. Patient was seen and examined.
[2018-07-26 11:45] LABS: Glucose,Whole Blood 136 mg/dL (75-99)
--- NOTE | 2018-07-26 12:09 | P.CONS ---
History of Present Illness - Reason for Consult Consult date: 07/26/18 Hiccups Requesting physician: Mateusz Galarza - Chief Complaint Hiccups difficulty breathing - History of Present Illness 57-year-old gentleman recent left hip surgery a week ago admitted with persistent hiccups since surgery, new onset of diaphoresis shortness of breath. Consult requested for hiccups. White count 15.4. Hemoglobin 13.7. Platelet 457. D-dimer 4.0. INR 0.9. LFTs within normal limits. CT chest small hiatal hernia. No PE. No acute pulmonary process. Nonspecific right hepatic liver lesion suspect hemangioma adjacent to thin-walled cyst. No history of hiccups. Patient states when he awakened from surgery last week he started to have some hiccups but did not bring it to the attention of his healthcare providers. Once discharged hiccups persisted and increased in frequency. He has been unable to sleep however that has not changed his appe tite. Denies abdominal pain fever chills hematemesis hematochezia or melena. ER provided dose of Thorazine without improvement. Review of Systems Constitutional: Denies fever, chills, sweats, weight gain, or loss. HEENT: Negative for migraines, blurred vision or loss, earaches, drainage, tinnitus, oral mucosal lesions, dysphagia, or odynophagia. Cardiac: Negative for chest pain, arrhythmias, or palpitation. Respiratory: Admitted with shortness of breath, denies hemoptysis, cough, or sputum production. Gastrointestinal: See HPI for pertinent findings. Genitourinary: Negative for hematuria, urgency, frequency, polyuria, dysuria, or penile discharge. Musculoskeletal: Negative for muscle aches, swelling, arthritis, and arthralgias. Neurologic: Negative for stroke or TIA. Endocrine: Negative for thyroid problems. Skin: Negative for rash or itching. Psychiatric: Negative history for depression and anxiety Past Medical History Past Medical History: Cancer, Hypertension, Osteoarthritis (OA) Additional Past Medical History / Comment(s): SKIN CANCER ," HAD BLEEDING FROM COLON HIGH DOSE OF ASPIRIN HISTORY, History of Any Multi-Drug Resistant Organisms: None Reported Past Surgical History: Orthopedic Surgery Additional Past Surgical History / Comment(s): COLONOSCOPY, HEMORRHOIDECTOMY, VASECTOMY, CARPAL TUNNEL LEFT WRIST, left hip surgery Past Anesthesia/Blood Transfusion Reactions: No Reported Reaction Past Psychological History: No Psychological Hx Reported Smoking Status: Never smoker Past Alcohol Use History: None Reported Past Drug Use History: None Reported - Past Family History Mother Family Medical History: No Reported History Medications and Allergies Home Medications Medication Instructions Recorded Confirmed Type Allopurinol [Zyloprim] 100 mg PO TID 07/12/18 07/25/18 History Aspirin 325 mg PO BID #60 tab 07/20/18 07/25/18 Rx HYDROcodone/APAP 5-325MG [[place] 1 - 2 tab PO Q6HR PRN #56 tab 07/20/18 07/25/18 Rx 5-325] Chlorthalidone 25 mg PO DAILY 07/25/18 07/25/18 History Omeprazole [PriLOSEC] 40 mg PO DAILY 07/25/18 07/25/18 History Potassium Chloride [Klor-Con 10] 10 meq PO DAILY 07/25/18 07/25/18 History Sennosides [Senokot] 1 tab PO DAILY 07/25/18 07/25/18 History Allergies Allergy/AdvReac Type Severity Reaction Status Date / Time No Known Allergies Allergy Verified 07/25/18 20:04 Physical Exam Vitals: Vital Signs Temp Pulse Pulse Resp BP BP Pulse Ox 07/26/18 11:49 98.6 F 92 18 135/80 96 07/26/18 09:07 98.6 F 82 18 134/80 95 07/26/18 06:18 99.7 F H 91 16 146/82 95 07/26/18 05:50 98.6 F 86 19 119/78 98 07/26/18 04:00 89 16 125/82 94 L 07/25/18 23:59 82 18 134/68 99 07/25/18 20:43 20 07/25/18 19:21 18 07/25/18 19:18 98.6 F 98 18 135/88 100 Intake and Output 07/25/18 07/26/18 07/26/18 22:59 06:59 14:59 Other: Weight 115.212 kg 112.9 kg General appearance: The patient is alert, oriented, in no acute distress. Hiccups present. HET: Head is normocephalic and atraumatic. Pupils are equal and reactive. Oropharynx is clear without lesions. Neck: Supple without lymphadenopathy. Trachea midline. Heart: S1 S2. Regular rate and rhythm. Lungs: No crackles or wheezes are heard. Abdomen: Soft, nontender, nondistended with bowel sounds. No peritoneal signs. No palpable organomegaly or masses. Extremities: Normal skin color and turgor. No cyanosis, rash, ulceration, clubbing, or edema. Radial and pedal pulses are 2/4 bilaterally. Neurological: No focal deficits. Strength and sensation are grossly intact. Results CBC & Chem 7: 07/28/18 09:24 07/28/18 09:24 Labs: Abnormal Lab Results - Last 24 Hours (Table) 07/25/18 07/25/18 07/25/18 Range/Units 19:50 19:50 19:50 WBC 15.4 H (3.8-10.6) k/uL Plt Count 457 H (150-450) k/uL Neutrophils # 12.3 H (1.3-7.7) k/uL D-Dimer 4.06 H (<0.60) mg/L FEU Potassium 3.4 L (3.5-5.1) mmol/L Chloride 97 L (98-107) mmol/L BUN 21 H (9-20) mg/dL Glucose 113 H (74-99) mg/dL POC Glucose (mg/dL) (75-99) mg/dL 07/26/18 Range/Units 11:36 WBC (3.8-10.6) k/uL Plt Count (150-450) k/uL Neutrophils # (1.3-7.7) k/uL D-Dimer (<0.60) mg/L FEU Potassium (3.5-5.1) mmol/L Chloride (98-107) mmol/L BUN (9-20) mg/dL Glucose (74-99) mg/dL POC Glucose (mg/dL) 136 H (75-99) mg/dL CT scan - chest: report reviewed (Dr. Miranda) Assessment and Plan (1) Intractable hiccups Narrative/Plan: 57-year-old male presents with intractable hiccups developed postoperatively status post recent left hip surgery 1 week ago. Etiology unclear. Current Visit: Yes Status: Acute Code(s): R06.6 - HICCOUGH SNOMED Code(s): 87380053 (2) Status post total hip replacement, left Current Visit: No Status: Acute Code(s): Z96.642 - PRESENCE OF LEFT ARTIFICIAL HIP JOINT SNOMED Code(s): 907695083233 (3) Hemangioma of liver Narrative/Plan: Per CT. Normal liver function tests. Current Visit: Yes Status: Acute Code(s): D18.03 - HEMANGIOMA OF INTRA- ABDOMINAL STRUCTURES SNOMED Code(s): 50347213 Plan: 1. Family is wondering if hiccups are related to perioperative experience anesthetic and/or spinal anesthesia. Recommend consult anesthesia services. Continue with supportive measures GI prophylaxis Protonix 40 mg daily. Light diet as tolerated. Agents such as Reglan, thorazine and Haldol have been used successfully in treatment of hiccups. Consideration for inpatient EGD will discuss with anesthesia services. Thank you for this kind referral and the opportunity to participate in the care of your patient. This consultation was discussed with Dr. Miranda. The impression and plan of care have been directed as dictated.
--- NOTE | 2018-07-26 12:43 | ECHOF ---
Referral Reason:chest pain MEASUREMENTS -------- HEIGHT: 180.3 cm WEIGHT: 112.5 kg BP: 134/80 RVIDd: 2.7 cm (< 3.3) IVSd: 1.2 cm (0.6 - 1.1) LVIDd: 5.3 cm (3.9 - 5.3) LVPWd: 1.1 cm (0.6 - 1.1) IVSs: 1.5 cm LVIDs: 3.8 cm LVPWs: 1.5 cm LA Diam: 2.6 cm (2.7 - 3.8) Ao Diam: 3.4 cm (2.0 - 3.7) AV Cusp: 2.1 cm (1.5 - 2.6) LA Diam: 2.8 cm (2.7 - 3.8) MV EXCURSION: 15.488 mm (> 18.000) MV EF SLOPE: 113 mm/s (70 - 150) EPSS: 0.8 cm MV E Andi: 0.79 m/s MV DecT: 196 ms MV A Andi: 0.93 m/s MV E/A Ratio: 0.85 RAP: 5.00 mmHg RVSP: 8.61 mmHg FINDINGS -------- Sinus rhythm. This was a technically adequate study. The left ventricular size is normal. There is mild concentric left ventricular hypertrophy. Overa ll left ventricular systolic function is normal with, an EF between 55 - 60 %. The right ventricle is normal in size. The left atrial size is normal. The right atrial size is normal. The aortic valve is trileaflet, and appears structurally normal. No aortic stenosis or regurgitation. The mitral valve is normal. Mild mitral regurgitation is present. Mild tricuspid regurgitation present. Right ventricular systolic pressure is normal at < 35 mmHg. There is no evidence of pulmonary hypertension. Trace/mild (physiologic) pulmonic regurgitation. The aortic root is mildy dilated, up to 3.8 cm. Normal inferior vena cava with normal inspiratory collapse consistent with estimated right atrial pre ssure of 5 mmHg. There is no pericardial effusion. CONCLUSIONS -------- 1. Sinus rhythm. 2. This was a technically adequate study. 3. The left ventricular size is normal. 4. There is mild concentric left ventricular hypertrophy. 5. Overall left ventricular systolic function is normal with, an EF between 55 - 60 %. 6. The left atrial size is normal. 7. The aortic valve is trileaflet, and appears structurally normal. No aortic stenosis or regurgitati on. 8. Mild mitral regurgitation is present. 9. Mild tricuspid regurgitation present. 10. Right ventricular systolic pressure is normal at < 35 mmHg. 11. Trace/mild (physiologic) pulmonic regurgitation. 12. The aortic root is mildy dilated, up to 3.8 cm. 13. There is no pericardial effusion. SHREDDER/GRANULATOR OPERATOR: Jayy De Luna RDCS
[2018-07-26] MEDS ORDERED: CALCIUM CARBONATE LIQUID 500 MG/5 ML CUP PO STA (14:05)
[2018-07-26] MEDS: ENOXAPARIN 40 MG/0.4 ML SYRINGE SQ SCH (14:32)
[2018-07-26] MEDS: PANTOPRAZOLE 40 MG TABLET PO SCH (15:37)
[2018-07-26] MEDS: BACLOFEN 10 MG TAB PO SCH ×2 (15:37→20:38)
[2018-07-26] MEDS: METOCLOPRAMIDE 5 MG/ML 2 ML VIAL IVP SCH ×2 (15:37→17:09)
[2018-07-26] MEDS: ALLOPURINOL 100 MG TAB PO SCH ×2 (15:37→20:38)
[2018-07-26] MEDS: CALCIUM CARBONATE LIQUID 500 MG/5 ML CUP PO SCH (17:19)
[2018-07-26] MEDS: SENNOSIDES 8.6 MG TAB PO SCH (17:20)
[2018-07-26] MEDS: METOCLOPRAMIDE ORAL SOLN 10 MG/10 ML CUP PO SCH (22:03)
--- NOTE | 2018-07-26 23:25 | HP ---
HISTORY AND PHYSICAL DATE OF ADMISSION: 07/25/2018 PRESENTING COMPLAINT: Hiccups. HISTORY OF PRESENTING COMPLAINT: This is a pleasant 57-year-old patient who was just in the hospital and went home on 07/20/2018. Patient underwent left total hip arthroplasty. He did well and was discharged home on [place], aspirin. Patient does take allopurinol at home. Patient started having intractable hiccups and was very slightly short of breath. The patient did have a CT. There was no PE. He had a 2-D echocardiogram that was unremarkable. He was admitted for the same. I saw the patient earlier today and did stop patient's aspirin, started him on Lovenox. I did put him on baclofen and Reglan to see that would help the symptoms. Also GI was consulted, who saw the patient again this evening. The patient's symptoms are only slightly improved. He is still having hiccups. REVIEW OF SYSTEMS: CONSTITUTIONAL: None. HEENT: None. RESPIRATORY: None. CARDIOVASCULAR: None. GASTROINTESTINAL: As above. GENITOURINARY: None. MUSCULOSKELETAL: Pain in the joints. DERMATOLOGICAL: None. HEMATOLOGICAL: None. LYMPHATICS: None. PSYCHIATRY: None. NEUROLOGICAL: None. PAST MEDICAL HISTORY: 1. Hypertension. 2. Osteoarthritis. 3. Skin cancer. 4. Bleeding from the colon. PAST SURGICAL HISTORY: 1. Colonoscopy. 2. Hemorrhoidectomy. 3. Vasectomy. 4. Carpal tunnel, left wrist. SOCIAL HISTORY: Does not smoke or drink alcohol. FAMILY HISTORY: Reviewed; noncontributory to presentation. HOME MEDICATIONS: 1. Senokot 1 tablet p.o. daily. 2. Klor-Con 10 mEq p.o. daily. 3. [place] 5 one to two tablets q.6 p.r.n. 4. Chlorthalidone 25 mg p.o. daily. 5. Allopurinol 100 mg p.o. t.i.d. 6. Prilosec 40 mg p.o. daily. 7. Aspirin 325 p.o. daily. ALLERGIES: NONE. PHYSICAL EXAMINATION: Temperature 98.6, pulse 92, respiration 18, blood pressure 135/80, pulse ox 96% on room air. GENERAL APPEARANCE: Well built; BMI 34.9. Sitting up with hiccups. EYES: Pupils equal. Conjunctivae normal. HEENT: External appearance of nose and ears normal. Oral cavity normal. NECK: JVD not raised. Mass not palpable. RESPIRATORY: Effort normal. Lungs are clear. CARDIOVASCULAR: First and second sounds normal. No edema. ABDOMEN: Soft, non-tender. Liver and spleen not palpable. LYMPHATIC: No lymph node palpable in neck or axillae. PSYCHIATRY: Alert and oriented x3. Mood and affect normal. NEUROLOGICAL: Pupils equal. Cranial nerves grossly intact. Power and sensation grossly intact. MUSCULOSKELETAL: Evidence of osteoarthritis. INVESTIGATIONS: White count 15.4, hemoglobin 13.7, potassium 3.4, BUN 21, creatinine 0.91. Troponin x3 negative. Two-D echo shows preserved LV function. EKG tracing, personally reviewed by me, shows poor baseline quality. Chest x-ray film, personally reviewed by me, shows no obvious infiltrates. ASSESSMENT: 1. Persistent hiccups, having failed outpatient treatment. It could be both from gastric irritation and/or from a phrenic nerve irritation from recent anesthesia. 2. Obesity with body mass index of 34.9. 3. Recent left total hip arthroplasty. 4. Hypokalemia; potassium 3.4. 5. Leukocytosis, likely from surgery. 6. Thrombocytosis; platelets of 457, from recent surgery. PLAN: Opinion was sought from Cardiology; nothing further to add from them. Also GI was consulted. Will start the patient on scheduled baclofen and will also try Reglan. Aspirin has been discontinued. We will try Lovenox. If patient does not respond to the same, then we may have to try invasive procedures. As this condition can often be rather relentless, expect the patient to stay in the hospital at least for 2 nights to watch his respiratory status that it does not progressively get worse. MMODL / IJN: [id number] /
[2018-07-27] MEDS: BACLOFEN 10 MG TAB PO SCH ×4 (03:47→21:10)
[2018-07-27] MEDS: PANTOPRAZOLE 40 MG TABLET PO SCH (06:19)
[2018-07-27] MEDS: METOCLOPRAMIDE ORAL SOLN 10 MG/10 ML CUP PO SCH ×4 (06:19→21:09)
[2018-07-27] MEDS: CALCIUM CARBONATE LIQUID 500 MG/5 ML CUP PO SCH ×3 (06:19→17:42)
[2018-07-27 06:34] LABS: Basophils # (A) 0.1 k/uL (0-0.2); Basophils % (A) 1 %; Eosinophils # (A) 0.2 k/uL (0-0.7); Eosinophils % (A) 2 %; HGB 11.9 gm/dL (13.0-17.5); Lymphocytes # (A) 1.5 k/uL (1.0-4.8); Lymphocytes % (A) 12 %; MCH 28.9 pg (25.0-35.0); MCHC 34.1 g/dL (31.0-37.0); Mean Platelet Volume 6.2; Monocytes # (A) 0.6 k/uL (0-1.0); Monocytes % (A) 5 %; Neutrophils # (A) 10.5 k/uL (1.3-7.7); Neutrophils % (A) 81 %; Platelet Count 433 k/uL (150-450); RBC 4.11 m/uL (4.30-5.90); RDW 13.7 % (11.5-15.5)
[2018-07-27 06:43] LABS: Anion Gap 10 mmol/L; Blood Urea Nitrogen 18 mg/dL (9-20); Calcium 9.4 mg/dL (8.4-10.2); Carbon Dioxide 30 mmol/L (22-30); Chloride 97 mmol/L (98-107); Glucose 99 mg/dL (74-99); Potassium 3.4 mmol/L (3.5-5.1); Sodium 137 mmol/L (137-145)
[2018-07-27] MEDS: ALLOPURINOL 100 MG TAB PO SCH ×3 (08:13→21:11)
[2018-07-27] MEDS: SENNOSIDES 8.6 MG TAB PO SCH (08:13)
[2018-07-27] MEDS: ENOXAPARIN 40 MG/0.4 ML SYRINGE SQ SCH (08:14)
--- NOTE | 2018-07-27 08:31 | P.PN ---
Subjective On-call hospitalist covering Dr. Galarza starting on 07/27/2018 This is a pleasant 57 years old male with past medical history of hypertension and osteoarthritis, who had recent left total hip arthroplasty about one week ago, after the surgery patient was starting to have he cups which were mild, progressively got worse and he decided to come to the hospital. Patient states that he cups comes in bouts whenever he takes deep breath. However during my encounter patient did not have any headache Smoked. However patient denies chest pain. No dyspnea. No abdominal pain. He is tolerating his diet well. He had regular bowel movement, with no nausea or vomiting. Patient has some mild leukocytosis of 15.4, down to 13 K. Which looks hemodilution normal. Patient had mild fever yesterday of 99.7. His heart rate was around [address] Patient had [address] angiogram of the abdomen which showing no PE, [facility] [employer] has been consulted for dyspnea. There recommended echo and suspect noncardiac causes GI team evaluated the patient, as per Dr. Galarza order. And the recommended anesthesia service consult and to continue with supportive measures with Protonix, advance diet as tolerated and he isn't H such as Reglan, Thorazine or Haldol. Patient is already on Reglan. I discussed medication with him and he wants to continue with Ritalin for now. GI team also recommended Anesthesia team consult, Which was called. Review of systems CONSTITUTIONAL: No fever, no malaise, no fatigue. HEENT: No recent visual problems or hearing problems. Denied any sore throat. CARDIOVASCULAR: No orthopnea, PND, no palpitations, no syncope. PULMONARY: No shortness of breath, no cough, no hemoptysis. GASTROINTESTINAL: No diarrhea, no nausea, no vomiting, no abdominal pain. Normoactive bowel sounds. NEUROLOGICAL: No headaches, no weakness, no numbness. HEMATOLOGICAL: Denies any bleeding or petechiae. GENITOURINARY: Denies any burning micturition, frequency, or urgency. MUSCULOSKELETAL/RHEUMATOLOGICAL: Denies any joint pain, swelling, or any muscle pain. ENDOCRINE: Denies any polyuria or polydipsia. Medication: Allopurinol, baclofen, Tums, Lovenox, Ativan, Reglan, Narcan, Protonix, Senokot. Add Levaquin Objective - Vital Signs Vital signs: Vital Signs Temp 98.5 F 07/26/18 20:00 Pulse 86 07/27/18 04:00 Resp 17 07/27/18 04:00 BP 144/81 07/27/18 04:00 Pulse Ox 97 07/27/18 04:00 Intake & Output 07/26/18 07/27/18 07/27/18 18:59 06:59 18:59 Intake Total 1080 Balance 1080 Weight 112.4 kg Intake: Oral 1080 Other: # Voids 2 2 - Exam GENERAL: The patient is alert and oriented x3, not in any acute distress. Well developed, well nourished. HEENT: Pupils are round and equally reacting to light. EOMI. No scleral icterus. No conjunctival pallor. Normocephalic, atraumatic. No pharyngeal erythema. No thyromegaly. CARDIOVASCULAR: S1 and S2 present. No murmurs, rubs, or gallops. PULMONARY: Chest is clear to auscultation, no wheezing or crackles. ABDOMEN: Soft, nontender, nondistended, normoactive bowel sounds. No palpable o rganomegaly. MUSCULOSKELETAL: No joint swelling or deformity. EXTREMITIES: No cyanosis, clubbing, or pedal edema. NEUROLOGICAL: Gross neurological examination did not reveal any focal deficits. SKIN: No rashes. - Labs CBC & Chem 7: 07/27/18 05:32 07/27/18 05:32 Labs: Abnormal Lab Results - Last 24 Hours (Table) 07/26/18 07/27/18 07/27/18 Range/Units 11:36 05:32 05:32 WBC 13.0 H (3.8-10.6) k/uL RBC 4.11 L (4.30-5.90) m/uL Hgb 11.9 L (13.0-17.5) gm/dL Hct 35.0 L (39.0-53.0) % Neutrophils # 10.5 H (1.3-7.7) k/uL Potassium 3.4 L (3.5-5.1) mmol/L Chloride 97 L (98-107) mmol/L POC Glucose (mg/dL) 136 H (75-99) mg/dL Assessment and Plan Assessment: Postoperative hiccups He had leukocytosis, mild with mild fever Mild SIRS syndrome, with leukocytosis, mild fever, mild tachycardia and tachypnea. Possible sepsis, could be related to gastritis, or gastroenteritis versus other. GI team was consulted by Dr. Galarza Right Liver lesions seen on CT angio of the thorax ,Slightly larger from prior study, suspect hemangioma adjacent to thin-walled cyst. Follow-up as an outpatient Dehydration, improvement Essential hypertension History of osteoarthritis Status post recent left hip arthroplasty about one week prior to hospitalization Plan: This is a pleasant 57 years old male who presents with pickups, possible sepsis. Continue with IV fluids. We'll order antibiotic in form of Levaquin. Monitor WBC and temperature. Monitor patient's symptoms. GI input is appreciated. Cardiology evaluated the patient already. Continue with supportive measures and symptomatic treatment as per GI recommendations. we'll call anesthesia consult.Labs and medication were reviewed.. Continue same treatment. Continue with symptomatic treatment. Resume home medication. Monitor lytes and vitals. DVT and GI prophylaxis. Further recommendations of the clinical course of the patient DVT prophylaxis: Subcutaneous Lovenox GI Prophylaxis: Ppi Prognosis is guarded
[2018-07-27] MEDS ORDERED: LEVOFLOXACIN 500MG-D5W PMX 500 MG in DEXTROSE/WATER 1 100ML.BAG IVPB SCH (09:00)
[2018-07-27] MEDS: DEXTROSE 5%-0.9% NACL 1,000 ML IV SCH ×2 (09:30→23:12)
--- NOTE | 2018-07-27 11:00 | P.PN ---
Subjective Progress Note Date: 07/27/18 Principal diagnosis: Intractable hiccups Hiccups still present. Reglan ordered. Anesthesia consulted. Denies abdominal pain. No N/V. Objective - Vital Signs Vital signs: Vital Signs Temp 97.8 F 07/27/18 08:00 Pulse 77 07/27/18 08:00 Resp 18 07/27/18 08:00 BP 127/84 07/27/18 08:00 Pulse Ox 97 07/27/18 08:00 Intake & Output 07/26/18 07/27/18 07/27/18 18:59 06:59 18:59 Intake Total 1080 Balance 1080 Weight 112.4 kg Intake: Oral 1080 Other: # Voids 2 2 - Exam General appearance: The patient is alert, oriented, in no acute distress. Hiccups present. HET: Head is normocephalic and atraumatic. Pupils are equal and reactive. Oropharynx is clear without lesions. Neck: Supple without lymphadenopathy. Trachea midline. Heart: S1 S2. Regular rate and rhythm. Lungs: No crackles or wheezes are heard. Abdomen: Soft, nontender, nondistended with bowel sounds. No peritoneal signs. No palpable organomegaly or masses. Extremities: Normal skin color and turgor. No cyanosis, rash, ulceration, clubbing, or edema. Radial and pedal pulses are 2/4 bilaterally. Neurological: No focal deficits. Strength and sensation are grossly intact. - Labs CBC & Chem 7: 07/28/18 09:24 07/28/18 09:24 Labs: Abnormal Lab Results - Last 24 Hours (Table) 07/26/18 07/27/18 07/27/18 Range/Units 11:36 05:32 05:32 WBC 13.0 H (3.8-10.6) k/uL RBC 4.11 L (4.30-5.90) m/uL Hgb 11.9 L (13.0-17.5) gm/dL Hct 35.0 L (39.0-53.0) % Neutrophils # 10.5 H (1.3-7.7) k/uL Potassium 3.4 L (3.5-5.1) mmol/L Chloride 97 L (98-107) mmol/L POC Glucose (mg/dL) 136 H (75-99) mg/dL Assessment and Plan (1) Intractable hiccups Narrative/Plan: 57-year-old male presents with intractable hiccups developed postoperatively status post recent left hip surgery 1 week ago. Etiology unclear. Current Visit: Yes Status: Acute Code(s): R06.6 - HICCOUGH SNOMED Code(s): 89510241 (2) Status post total hip replacement, left Current Visit: No Status: Acute Code(s): Z96.642 - PRESENCE OF LEFT ARTIFICIAL HIP JOINT SNOMED Code(s): 542375268633 (3) Hemangioma of liver Narrative/Plan: Per CT. Normal liver function tests. Current Visit: Yes Status: Acute Code(s): D18.03 - HEMANGIOMA OF INTRA-ABD OMINAL STRUCTURES SNOMED Code(s): 95937032 Plan: 1. Continue with supportive measures GI prophylaxis Protonix 40 mg daily. Light diet as tolerated. Anesthesia consulted. Continue Reglan 10 mg AC/HS. Patient advised to f/u with GI office regarding liver hemangiomas. Assessment and plan a care discussed with Dr. Miranda
--- NOTE | 2018-07-27 14:10 | P.PN ---
Subjective Progress Note Date: 07/27/18 This is a pleasant 57-year-old gentleman who underwent left hip surgery on Wednesday of last week, since then he has had constant hiccups. Patient also has been having episodes of shortness of breath which the states is unsure if it's related to the head, Had an Episode Where He Became Diaphoretic and Pale. For This Reason He Was Brought to the Hospital for Further Evaluation. Patient Does Have a History of a Blood Clotting Disorder, He States That He Was Put on 2 Aspirins a Proximally 15 Years Ago and Had GI Bleeding. He Also Has a History of a Ventral Hernia. Patient Has a Strong Family History of Premature Coronary Artery Disease in His Father Who Had a Myocardial Infarction at the Age of 40. He Is a Nonsmoker, No Hypertension, No Diabetes, No Hyperlipidemia. Chest X-Ray Does Not Reveal Any Acute Cardiopulmonary Process. CTA of the Chest Was Performed on Arrival Here Which Was Negative for PE. EKGs were difficult to obtain because of the hiccups, overall shows normal sinus rhythm with no acute changes. Blood pressure 134/80 with a heart rate in the 80s, 95% on room air. Low-grade temperature last evening of 99.7. White blood cell count 15.4, hemoglobin 13.7, platelet count 457. D-dimer 4.0, sodium 138, potassium 3.4, BUN 21 and creatinine 0.9. Initial troponin 0.012. Patient was started on Thorazine, Valium, Benadryl, and Ativan in hopes to control the hiccups. 07/27/2018 Patient was seen and examined this morning, just prior to surrounding on him he had eaten some peanut butter, he states that he has not had any hiccups since that time. Echo revealed an ejection fraction of 55-60%. Objective - Vital Signs Vital signs: Vital Signs Temp 98.3 F 07/27/18 12:00 Pulse 76 07/27/18 12:00 Resp 16 07/27/18 12:00 BP 139/87 07/27/18 12:00 Pulse Ox 97 07/27/18 12:00 Intake & Output 07/26/18 07/27/18 07/27/18 18:59 06:59 18:59 Intake Total 1080 480 Balance 1080 480 Weight 112.4 kg Intake: Oral 1080 480 Other: # Voids 2 2 1 - Exam PHYSICAL EXAMINATION: GENERAL: 57-year-old gentleman in no acute distress at the time of my examination, he is having frequent hiccups. HEENT: Head is atraumatic, normocephalic. Pupils equal, round. Sclera anicteric. Conjunctiva are clear. Mucous membranes of the mouth are moist. Neck is supple. There is no elevated jugular venous pressure no carotid bruit is heard. HEART EXAMINATION: Heart S1, S2 normal. No murmur or gallop heard. CHEST EXAMINATION: Lungs are clear to auscultation and precussion. No chest wall tenderness is noted on palpation or with deep breathing. ABDOMEN: Soft, nontender. Bowel sounds are heard. No organomegaly noted. EXTREMITIES: 2+ peripheral pulses with no evidence of peripheral edema and no calf tenderness noted. NEUROLOGIC patient is awake, alert and oriented 3 . . - Labs CBC & Chem 7: 07/27/18 05:32 07/27/18 05:32 Labs: Abnormal Lab Results - Last 24 Hours (Table) 07/27/18 07/27/18 Range/Units 05:32 05:32 WBC 13.0 H (3.8-10.6) k/uL RBC 4.11 L (4.30-5.90) m/uL Hgb 11.9 L (13.0-17.5) gm/dL Hct 35.0 L (39.0-53.0) % Neutrophils # 10.5 H (1.3-7.7) k/uL Potassium 3.4 L (3.5-5.1) mmol/L Chloride 97 L (98-107) mmol/L Assessment and Plan Plan: Assessment and plan #1 pickups, with a brief episode of shortness of breath with associated diaphoresis. CTA of the chest negative for pulmonary embolism. EKG shows normal sinus rhythm with nonspecific ST-T wave changes and significant amount of artifact secondary to headache. Troponin 1 negative #2 family history of premature coronary artery disease #3 recent left hip surgery one week ago #4 persistent hiccups for one week duration Plan Patient's presentation did not appear to be cardiac in nature. Echo revealed normal left ventricular systolic function. From our perspective, we will follow this patient along with you now on an as-needed basis only, please don't he sitate to call with any questions. DNP note has been reviewed, I agree with a documented findings and plan of care. Patient was seen and examined.
[2018-07-27] MEDS: LORazepam 2 MG/ML INJ IV PRN ×2 (15:57→21:10)
[2018-07-27] MEDS ORDERED: HALOPERIDOL 5 MG TAB PO STA (18:46)
[2018-07-27] MEDS: chlorproMAZINE 25 MG TAB PO SCH ×2 (18:51→23:12)
--- NOTE | 2018-07-27 20:15 | P.PAINCN ---
History of Present Illness - Reason for Consult Consult date: 07/27/18 - History of Present Illness This is 57 years old male, with a chief complaint of continuous hiccups , started immediately after patient had left total hip arthroplasty, according to the patient the symptoms started when he transferred to his room, and patient was discharged home and the intensity of the hiccups increased, patient had diagnostic tests to rule out PE which was negative for PE, patient had no history of hiccups in the past, patient denies any other associated symptoms with his second except of some facial sweating , patient denies any headache he denies any visual changes, denies any motor or sensory deficit he denies any numbness or tingling sensation, patient reported that since he was discharged f rom the hospital last week, the intensity of the hiccups increased in frequency, and patient not able to sleep secondary to the hiccups, he denies any fever or chills and no hematochezia no melena, patient was treated with Thorazine in the emergency room without benefit, and he is currently on Reglan, baclofen, Protonix pump inhibitor, [place], none of these medication helpful improve his hiccups Past Medical History Past Medical History: Cancer, Hypertension, Osteoarthritis (OA) Additional Past Medical History / Comment(s): SKIN CANCER ," HAD BLEEDING FROM COLON HIGH DOSE OF ASPIRIN HISTORY, History of Any Multi-Drug Resistant Organisms: None Reported Past Surgical History: Orthopedic Surgery Additional Past Surgical History / Comment(s): COLONOSCOPY, HEMORRHOIDECTOMY, VASECTOMY, CARPAL TUNNEL LEFT WRIST, left hip surgery Past Anesthesia/Blood Transfusion Reactions: No Reported Reaction Past Psychological History: No Psychological Hx Reported Smoking Status: Never smoker Past Alcohol Use History: None Reported Past Drug Use History: None Reported - Past Family History Mother Family Medical History: No Reported History Medications and Allergies Home Medications Medication Instructions Recorded Confirmed Type Allopurinol [Zyloprim] 100 mg PO TID 07/12/18 07/25/18 History Aspirin 325 mg PO BID #60 tab 07/20/18 07/25/18 Rx HYDROcodone/APAP 5-325MG [[place] 1 - 2 tab PO Q6HR PRN #56 tab 07/20/18 07/25/18 Rx 5-325] Chlorthalidone 25 mg PO DAILY 07/25/18 07/25/18 History Omeprazole [PriLOSEC] 40 mg PO DAILY 07/25/18 07/25/18 History Potassium Chloride [Klor-Con 10] 10 meq PO DAILY 07/25/18 07/25/18 History Sennosides [Senokot] 1 tab PO DAILY 07/25/18 07/25/18 History Allergies Allergy/AdvReac Type Severity Reaction Status Date / Time No Known Allergies Allergy Verified 07/25/18 20:04 Physical Exam Vitals: Vital Signs Temp Pulse Resp BP Pulse Ox 07/27/18 18:46 16 07/27/18 16:00 98.1 F 82 16 130/83 07/27/18 12:00 98.3 F 76 16 139/87 97 07/27/18 08:00 97.8 F 77 18 127/84 97 07/27/18 04:00 86 17 144/81 97 07/27/18 00:00 87 16 137/79 97 Intake and Output 07/27/18 07/27/18 07/27/18 06:59 14:59 22:59 Intake Total 1080 Balance 1080 Intake: Intake, IV Titration 600 Amount Dextrose 5%-0.9% NaCl 1, 600 000 ml @ 75 mls/hr IV . [id number] [facility] Rx#:[id number] Oral 480 Other: Voiding Method Toilet # Voids 2 1 1 Weight 112.4 kg Physical Examinations : -Constitutional : Cooperative , not in acute distress . -HEENT : nech ; supple , no Lymphadenopathy , no Thyromegaly , :eyes , no icterus, no photophobia . - Respiratory : Chest clear to auscultations Bilaterally , no wheezing . - Cardiovascular : regular rate and rhythem , S1 , S2 , no S3 , no S4. - Gastrointestinal: abdomen soft no tenderness , no organomegally . - Genitourinary : Defferred . -Integumentary : No cellulitis , no ulcers , normal skin turgor , no cyanotic . - neurologic : Cranial nerve II to XII intact , no focal neurological deffecit -psychatric : alert , oriented X 3 , appropriate affect , intact judgment and insight . -Lymphatic : no Lymphadenopathy. - musculoskeltal: Lumber spine moter stegnth lower extremities ,thigh and legs 5/5 Right side , 5/5 Left side Normal sensation, Injection site at the lumbar area normal there is no sign of erythema, no swelling Results CBC & Chem 7: 07/27/18 05:32 07/27/18 05:32 Labs: Abnormal Lab Results - Last 24 Hours (Table) 07/27/18 07/27/18 Range/Units 05:32 05:32 WBC 13.0 H (3.8-10.6) k/uL RBC 4.11 L (4.30-5.90) m/uL Hgb 11.9 L (13.0-17.5) gm/dL Hct 35.0 L (39.0-53.0) % Neutrophils # 10.5 H (1.3-7.7) k/uL Potassium 3.4 L (3.5-5.1) mmol/L Chloride 97 L (98-107) mmol/L Assessment and Plan Plan: Assessment and plan= intractable hiccups, is not related to spinal anesthesia, the hiccups Started after the surgery which may be coincidence, Recommend upper endoscopy to evaluate, and I recommended this to the endoscopy to be done under general anesthesia, instead of monitored anesthesia care, and when we do general anesthesia recommend muscle relaxation ,to paralyze the diaphragm, hopefully paralyzing and diaphram for a few minutes could stop the hiccups Cycle, , if patient continue to have a After the General Anesthesia , then I recommend neurologic consultation Time with Patient: Less than 30 PQRS Measure Charge Sheet PQRS Narrative: Smoking Status Never smoker Do You Want the Pneumonia Vaccine Up to Date Vaccine AT THIS TIME? Blood Pressure [Left Arm] 130/83 Blood Pressure 119/78 Pain Intensity [None] 0 Pain Intensity 0 Scale Used Numeric (1 - 10) Home Medications: Ambulatory Orders Allopurinol [Zyloprim] 100 mg PO TID 07/12/18 Aspirin 325 mg PO BID #60 tab 07/20/18 HYDROcodone/APAP 5-325MG [[place] 5-325] 1 - 2 tab PO Q6HR PRN #56 tab 07/20/18 Chlorthalidone 25 mg PO DAILY 07/25/18 Omeprazole [PriLOSEC] 40 mg PO DAILY 07/25/18 Potassium Chloride [Klor-Con 10] 10 meq PO DAILY 07/25/18 Sennosides [Senokot] 1 tab PO DAILY 07/25/18
[2018-07-28] MEDS: BACLOFEN 10 MG TAB PO SCH ×4 (05:09→20:23)
[2018-07-28] MEDS: chlorproMAZINE 25 MG TAB PO SCH ×6 (05:09→23:36)
[2018-07-28] MEDS: PANTOPRAZOLE 40 MG TABLET PO SCH (07:11)
[2018-07-28] MEDS: METOCLOPRAMIDE ORAL SOLN 10 MG/10 ML CUP PO SCH ×4 (07:11→20:23)
[2018-07-28] MEDS: CALCIUM CARBONATE LIQUID 500 MG/5 ML CUP PO SCH ×3 (07:11→18:08)
--- NOTE | 2018-07-28 09:10 | P.PN ---
Subjective On-call hospitalist covering Dr. Galarza starting on 07/27/2018 This is a pleasant 57 years old male with past medical history of hypertension and osteoarthritis, who had recent left total hip arthroplasty about one week ago, after the surgery patient was starting to have he cups which were mild, progressively got worse and he decided to come to the hospital. Patient states that he cups comes in bouts whenever he takes deep breath. However during my encounter patient did not have any headache Smoked. However patient denies chest pain. No dyspnea. No abdominal pain. He is tolerating his diet well. He had regular bowel movement, with no nausea or vomiting. Patient has some mild leukocytosis of 15.4, down to 13 K. Which looks hemodilution normal. Patient had mild fever yesterday of 99.7. His heart rate was around [address] Patient had CT angiogram of the abdomen which showing no PE, Maintenance Mechanic Helper has been consulted for dyspnea. There recommended echo and suspect noncardiac causes GI team evaluated the patient, as per Dr. Galarza order. And the recommended anesthesia service consult and to continue with supportive measures with Protonix, advance diet as tolerated and he isn't H such as Reglan, Thorazine or Haldol. Patient is already on Reglan. I discussed medication with him and he wants to continue with Ritalin for now. GI team also recommended Anesthesia team consult, Which was called. 07/28/2018 Patient states his hicuups are better for the first time, however we're not sure about this is a genuine improvement. Patient thinks symptomatic treatment was not helping him much, patient however remains on antibiotics now. He still have some mild epigastric pain and tenderness. No nausea vomiting and he is tolerating diet well with having a regular bowel movement. However patient is coughing with yellow phlegm which was started yesterday. No chest pain or dyspnea. However he has some sore throat. Going to order chest x-ray and check for influenza for it is the wintertime season. Leukocytosis from today still pending. Review of systems CONSTITUTIONAL: No fever, no malaise, no fatigue. HEENT: No recent visual problems or hearing problems. CARDIOVASCULAR: No orthopnea, PND, no palpitations, no syncope. PULMONARY: No shortness of breath, , no hemoptysis. GASTROINTESTINAL: No diarrhea, no nausea, no vomiting, . Normoactive bowel sounds. NEUROLOGICAL: No headaches, no weakness, no numbness. HEMATOLOGICAL: Denies any bleeding or petechiae. GENITOURINARY: Denies any burning micturition, frequency, or urgency. MUSCULOSKELETAL/RHEUMATOLOGICAL: Denies any joint pain, swelling, or any muscle pain. ENDOCRINE: Denies any polyuria or polydipsia. Medication: Allopurinol, baclofen, Tums, Lovenox, Ativan, Reglan, Narcan, Protonix, Senokot. and Levaquin Objective - Vital Signs Vital signs: Vital Signs Temp 98.5 F 07/27/18 19:55 Pulse 73 07/28/18 04:00 Resp 15 07/28/18 04:00 BP 110/69 07/28/18 04:00 Pulse Ox 92 L 07/28/18 08:58 Intake & Output 07/27/18 07/28/18 07/28/18 18:59 06:59 18:59 Intake Total 1080 Balance 1080 Weight 113.2 kg Intake: Intake, IV Titration 600 Amount Dextrose 5%-0.9% NaCl 1, 600 000 ml @ 75 mls/hr IV . [id number] [facility] Rx#:[id number] Oral 480 Other: Voiding Method Toilet # Voids 1 1 - Exam GENERAL: The patient is alert and oriented x3, not in any acute distress. Well developed, well nourished. HEENT: Pupils are round and equally reacting to light. EOMI. No scleral icterus. No conjunctival pallor. Normocephalic, atraumatic. No pharyngeal erythema. No thyromegaly. CARDIOVASCULAR: S1 and S2 present. No murmurs, rubs, or gallops. PULMONARY: Chest is clear to auscultation, no wheezing or crackles. ABDOMEN: Soft, nontender, nondistended, normoactive bowel sounds. No palpable organomegaly. MUSCULOSKELETAL: No joint swelling or deformity. EXTREMITIES: No cyanosis, clubbing, or pedal edema. NEUROLOGICAL: Gross neurological examination did not reveal any focal deficits. SKIN: No rashes. - Labs CBC & Chem 7: 07/27/18 05:32 07/27/18 05:32 Assessment and Plan Assessment: Postoperative hiccups He had leukocytosis, mild with mild fever Mild SIRS syndrome, with leukocytosis, mild fever, mild tachycardia and tachypn ea. upper resp tract infection sighns and symptoms, continue with levaquin and rule out influenza Possible sepsis, could be related to gastritis, or gastroenteritis versus other. GI team was consulted by Dr. Galarza Right Liver lesions seen on CT angio of the thorax ,Slightly larger from prior study, suspect hemangioma adjacent to thin-walled cyst. Follow-up as an outpatient Dehydration, improvement Essential hypertension History of osteoarthritis Status post recent left hip arthroplasty about one week prior to hospitalization Plan: This is a pleasant 57 years old male who presents with pickups, possible sepsis. Continue with IV fluids. We'll order antibiotic in form of Levaquin. Monitor WBC and temperature. Monitor patient's symptoms. GI input is appreciated. Cardiology evaluated the patient already. Continue with supportive measures and symptomatic treatment as per GI recommendations. we'll call anesthesia consult.Labs and medication were reviewed.. Continue same treatment. Continue with symptomatic treatment. Resume home medication. Monitor lytes and vitals. DVT and GI prophylaxis. Further recommendations of the clinical course of the patient DVT prophylaxis: Subcutaneous Lovenox GI Prophylaxis: Ppi Prognosis is guarded
[2018-07-28] MEDS: ENOXAPARIN 40 MG/0.4 ML SYRINGE SQ SCH (09:37)
[2018-07-28] MEDS: LEVOFLOXACIN 500 MG TAB PO SCH (09:37)
[2018-07-28] MEDS: SENNOSIDES 8.6 MG TAB PO SCH ×2 (09:37→09:42)
[2018-07-28] MEDS: ALLOPURINOL 100 MG TAB PO SCH ×3 (09:39→20:23)
[2018-07-28 10:23] LABS: Anion Gap 7 mmol/L; Blood Urea Nitrogen 15 mg/dL (9-20); Calcium 9.1 mg/dL (8.4-10.2); Carbon Dioxide 30 mmol/L (22-30); Chloride 100 mmol/L (98-107); Glucose 99 mg/dL (74-99); Magnesium 2.1 mg/dL (1.6-2.3); Potassium 3.3 mmol/L (3.5-5.1); Sodium 137 mmol/L (137-145)
[2018-07-28 10:28] LABS: Basophils # (A) 0.1 k/uL (0-0.2); Basophils % (A) 1 %; Eosinophils # (A) 0.3 k/uL (0-0.7); Eosinophils % (A) 2 %; HCT 34.3 % (39.0-53.0); HGB 11.6 gm/dL (13.0-17.5); Lymphocytes # (A) 1.4 k/uL (1.0-4.8); Lymphocytes % (A) 13 %; MCH 28.6 pg (25.0-35.0); MCHC 33.9 g/dL (31.0-37.0); MCV 84.6 fL (80.0-100.0); Mean Platelet Volume 6.2; Monocytes # (A) 0.6 k/uL (0-1.0); Monocytes % (A) 6 %; Neutrophils # (A) 8.8 k/uL (1.3-7.7); Neutrophils % (A) 78 %; Platelet Count 400 k/uL (150-450); RBC 4.06 m/uL (4.30-5.90); RDW 13.7 % (11.5-15.5); WBC 11.3 k/uL (3.8-10.6)
[2018-07-28] MEDS ORDERED: Potassium Replacement Protocol 1 EACH MISC MISCELLANE PRN (11:08)
--- NOTE | 2018-07-28 11:46 | P.PN ---
Subjective Progress Note Date: 07/28/18 Principal diagnosis: Intractable hiccups Hiccups still present but slowly improving. Reglan before meals at bedtime. Denies abdominal pain. No N/V. Intermittent reflux belching. White count 11.3. Hemoglobin 11.6. Afebrile. Objective - Vital Signs Vital signs: Vital Signs Temp 96.6 F L 07/28/18 08:00 Pulse 80 07/28/18 08:00 Resp 15 07/28/18 04:00 BP 129/75 07/28/18 08:00 Pulse Ox 92 L 07/28/18 08:58 Intake & Output 07/27/18 07/28/18 07/28/18 18:59 06:59 18:59 Intake Total 1080 200 Balance 1080 200 Weight 113.2 kg Intake: Intake, IV Titration 600 Amount Dextrose 5%-0.9% NaCl 1, 600 000 ml @ 75 mls/hr IV . [id number] [facility] Rx#:[id number] Oral 480 200 Other: Voiding Method Toilet # Voids 1 1 1 - Exam General appearance: The patient is alert, oriented, in no acute distress. Hiccups present. HET: Head is normocephalic and atraumatic. Pupils are equal and reactive. Oropharynx is clear without lesions. Neck: Supple without lymphadenopathy. Trachea midline. Heart: S1 S2. Regular rate and rhythm. Lungs: No crackles or wheezes are heard. Abdomen: Soft, nontender, nondistended with bowel sounds. No peritoneal signs. No palpable organomegaly or masses. Extremities: Normal skin color and turgor. No cyanosis, rash, ulceration, clubbing, or edema. Radial and pedal pulses are 2/4 bilaterally. Neurological: No focal deficits. Strength and sensation are grossly intact. - Labs CBC & Chem 7: 07/28/18 09:24 07/28/18 09:24 Labs: Abnormal Lab Results - Last 24 Hours (Table) 07/28/18 07/28/18 Range/Units 09:24 09:24 WBC 11.3 H (3.8-10.6) k/uL RBC 4.06 L (4.30-5.90) m/uL Hgb 11.6 L (13.0-17.5) gm/dL Hct 34.3 L (39.0-53.0) % Neutrophils # 8.8 H (1.3-7.7) k/uL Potassium 3.3 L (3.5-5.1) mmol/L Assessment and Plan (1) Intractable hiccups Narrative/Plan: 57-year-old male presents with intractable hiccups developed postoperatively status post recent left hip surgery 1 week ago. Etiology unclear. Current Visit: Yes Status: Acute Code(s): R06.6 - HICCOUGH SNOMED Code(s): 89160412 (2) Status post total hip replacement, left Current Visit: No Status: Acute Code(s): Z96.642 - PRESENCE OF LEFT ARTIFICIAL HIP JOINT SNOMED Code(s): 067372834458 (3) Hemangioma of liver Narrative/Plan: Per CT. Normal liver function tests. Current Visit: Yes Status: Acute Code(s): D18.03 - HEMANGIOMA OF INTRA- ABDOMINAL STRUCTURES SNOMED Code(s): 86544704 Plan: 1. Anesthesia recommendations appreciated. We'll plan on EGD evaluation tomorrow with general anesthesia to see if this will beth hiccups. If hiccups persist possible nerve block per anesthesia recommendations. Continue with Reglan before meals at bedtime as well as GI prophylaxis. Hold Lovenox in a.m. Nothing by mouth after midnight. The writer technical publications has discussed the risks, benefits and alternative therapies for the above-mentioned procedure and for both sedation/analgesia as well as necessary blood product administration, if indicated, as they pertain to this patient. The patient has indicated understanding and acceptance of the risks and procedures discussed. Assessment and plan a care discussed with Dr. Miranda
[2018-07-28] MEDS ORDERED: POTASSIUM CHLORIDE ER 20 MEQ TAB.ER PO SCH (12:00)
[2018-07-28] MEDS: DEXTROSE 5%-0.9% NACL 1,000 ML IV SCH (12:52)
[2018-07-28] MEDS ORDERED: POTASSIUM CHLORIDE ER 20 MEQ TAB.ER PO STA (12:56)
--- NOTE | 2018-07-28 13:06 | XR ---
EXAMINATION TYPE: XR chest 2V DATE OF EXAM: 07/28/2018 COMPARISON: Prior chest x-ray 07/25/2018 HISTORY: Cough TECHNIQUE: Frontal and lateral views of the chest are obtained. FINDINGS: There are overlying cardiac leads. There is no evident airspace disease, pneumothorax, or pleural effusion. Cardiac mediastinal silhouette, pulmonary vascularity and lalo are within normal li mits. IMPRESSION: No acute cardiopulmonary process.
--- NOTE | 2018-07-28 15:27 | PN ---
PROGRESS NOTE Mr. Bright is a 57-year-old gentleman who recently underwent left hip surgery. Patient was admitted to the hospital with episodes of shortness of breath and also hiccups. Patient's chest x-ray did not reveal any acute pathologies. CT scan of the chest was negative for pulmonary emboli. Patient's hiccups have become more persistent. Today, it appears to be slightly improved. His troponins have been negative. EKGs have not showed any acute changes. His echocardiogram showed normal LV function without any significant valvular abnormalities. The patient is going to have endoscopy and also possible intervention by anesthesia if his symptoms are not well controlled. Lungs are clear. Heart is regular. No JVD. Vital signs are otherwise stable. IMPRESSION: 1. Hiccups, etiology unclear. 2. Shortness of breath, stable. Echo, EKG and cardiac enzymes are normal. 3. Status post hip surgery. PLAN: Continue current medical therapy, wait from the input from Anesthesia. Will follow. MMODL / IJN: [id number] /
[2018-07-28] MEDS: D5-0.9% NACL WITH KCL 40 MEQ/L 1,000 ML IV SCH (18:05)
[2018-07-28] MEDS ORDERED: ACETAMINOPHEN TAB 325 MG TAB PO PRN (20:01)
[2018-07-28] MEDS: LORazepam 2 MG/ML INJ IV PRN (20:23)
[2018-07-29 00:17] VITALS: RESP 18
[2018-07-29] MEDS: D5-0.9% NACL WITH KCL 40 MEQ/L 1,000 ML IV SCH ×2 (04:14→16:02)
[2018-07-29] MEDS: chlorproMAZINE 25 MG TAB PO SCH ×3 (04:47→12:09)
[2018-07-29] MEDS: BACLOFEN 10 MG TAB PO SCH ×3 (04:47→16:02)
[2018-07-29 06:17] LABS: Basophils # (A) 0.1 k/uL (0-0.2); Basophils % (A) 1 %; Eosinophils # (A) 0.4 k/uL (0-0.7); Eosinophils % (A) 4 %; HGB 11.4 gm/dL (13.0-17.5); Lymphocytes # (A) 1.3 k/uL (1.0-4.8); Lymphocytes % (A) 15 %; MCH 28.7 pg (25.0-35.0); MCHC 33.6 g/dL (31.0-37.0); MCV 85.4 fL (80.0-100.0); Mean Platelet Volume 6.6; Monocytes # (A) 0.4 k/uL (0-1.0); Monocytes % (A) 5 %; Neutrophils # (A) 6.3 k/uL (1.3-7.7); Neutrophils % (A) 75 %; Platelet Count 379 k/uL (150-450); Poikilocytosis Slight; RBC 3.98 m/uL (4.30-5.90); RDW 13.8 % (11.5-15.5); WBC 8.4 k/uL (3.8-10.6)
[2018-07-29] MEDS: LEVOFLOXACIN 500 MG TAB PO SCH (08:19)
[2018-07-29] MEDS: METOCLOPRAMIDE ORAL SOLN 10 MG/10 ML CUP PO SCH ×2 (08:19→12:09)
[2018-07-29] MEDS: CALCIUM CARBONATE LIQUID 500 MG/5 ML CUP PO SCH ×3 (08:19→17:08)
[2018-07-29] MEDS: ALLOPURINOL 100 MG TAB PO SCH ×2 (08:20→16:02)
[2018-07-29] MEDS: SENNOSIDES 8.6 MG TAB PO SCH (08:20)
[2018-07-29] MEDS: PANTOPRAZOLE 40 MG TABLET PO SCH (08:20)
--- NOTE | 2018-07-29 09:58 | P.PN ---
Subjective On-call hospitalist covering Dr. Galarza starting on 07/27/2018 This is a pleasant 57 years old male with past medical history of hypertension and osteoarthritis, who had recent left total hip arthroplasty about one week ago, after the surgery patient was starting to have he cups which were mild, progressively got worse and he decided to come to the hospital. Patient states that he cups comes in bouts whenever he takes deep breath. However during my encounter patient did not have any headache Smoked. However patient denies chest pain. No dyspnea. No abdominal pain. He is tolerating his diet well. He had regular bowel movement, with no nausea or vomiting. Patient has some mild leukocytosis of 15.4, down to 13 K. Which looks hemodilution normal. Patient had mild fever yesterday of 99.7. His heart rate was around [address] admission[address] Patient had CT angiogram of the abdomen which showing no PE, [employer] has been consulted for dyspnea. There recommended echo and suspect noncardiac causes GI team evaluated the patient, as per Dr. Galarza order. And the recommended anesthesia service consult and to continue with supportive measures with Protonix, advance diet as tolerated and he isn't H such as Reglan, Thorazine or Haldol. Patient is already on Reglan. I discussed medication with him and he wants to continue with Ritalin for now. GI team also recommended Anesthesia team consult, Which was called. 07/28/2018 Patient states his hiccups are better for the first time, however we're not sure about this is a genuine improvement. Patient thinks symptomatic treatment was not helping him much, patient however remains on antibiotics now. He still have some mild epigastric pain and tenderness. No nausea vomiting and he is tolerating diet well with having a regular bowel movement. However patient is coughing with yellow phlegm which was started yesterday. No chest pain or dyspnea. However he has some sore throat. Going to order chest x-ray and check for influenza for it is the wintertime season. Leukocytosis from today still pending. 07/29/2018 Patient hiccups improved and he does not have many for the last 24 hours. No chest pain or abdominal pain. Patient got 1 dose of Haldol and Thorazine when necessary.Patient has been evaluated by GI and anesthesia team and the planned for going for EGD today and keep monitoring him. he remains on Levaquin for possible gastroenteritis versus gastritis. No more fever. His white cell count came back to normal at 8.4. Electrolytes are within normal limits. Creatinine normal at 0.8. Objective - Vital Signs Vital signs: Vital Signs Temp 98.9 F 07/28/18 20:00 Pulse 92 07/29/18 04:00 Resp 18 07/29/18 04:00 BP 143/86 07/29/18 04:00 Pulse Ox 96 07/29/18 04:00 Intake & Output 07/28/18 07/29/18 07/29/18 18:59 06:59 18:59 Intake Total 925 Balance 925 Weight 114.2 kg Intake: Intake, IV Titration 525 Amount Dextrose 5%-0.9% NaCl 1, 525 000 ml @ 75 mls/hr IV . [id number] PASQUALE Rx#:[id number] Oral 400 Other: # Voids 1 1 - Exam GENERAL: The patient is alert and oriented x3, not in any acute distress. Well developed, well nourished. HEENT: Pupils are round and equally reacting to light. EOMI. No scleral icterus. No conjunctival pallor. Normocephalic, atraumatic. No pharyngeal erythema. No thyromegaly. CARDIOVASCULAR: S1 and S2 present. No murmurs, rubs, or gallops. PULMONARY: Chest is clear to auscultation, no wheezing or crackles. ABDOMEN: Soft, nontender, nondistended, normoactive bowel sounds. No palpable o rganomegaly. MUSCULOSKELETAL: No joint swelling or deformity. EXTREMITIES: No cyanosis, clubbing, or pedal edema. NEUROLOGICAL: Gross neurological examination did not reveal any focal deficits. SKIN: No rashes. - Labs CBC & Chem 7: 07/29/18 05:58 07/29/18 05:58 Labs: Abnormal Lab Results - Last 24 Hours (Table) 07/28/18 07/28/18 07/29/18 Range/Units 09:24 09:24 05:58 WBC 11.3 H (3.8-10.6) k/uL RBC 4.06 L 3.98 L (4.30-5.90) m/uL Hgb 11.6 L 11.4 L (13.0-17.5) gm/dL Hct 34.3 L 34.0 L (39.0-53.0) % Neutrophils # 8.8 H (1.3-7.7) k/uL Potassium 3.3 L (3.5-5.1) mmol/L Assessment and Plan Assessment: Postoperative hiccups, mostly related to gastritis He had leukocytosis, mild with mild fever Mild SIRS syndrome, with leukocytosis, mild fever, mild tachycardia and tachypnea. upper resp tract infection sighns and symptoms, continue with levaquin and rule out influenza Possible sepsis, could be related to gastritis, or gastroenteritis versus other. GI team was consulted by Dr. Galarza Right Liver lesions seen on CT angio of the thorax ,Slightly larger from prior study, suspect hemangioma adjacent to thin-walled cyst. Follow-up as an outpatient Dehydration, improvement Essential hypertension History of osteoarthritis Status post recent left hip arthroplasty about one week prior to hospitalization Plan: This is a pleasant 57 years old male who presents with pickups, possible sepsis. Continue with IV fluids. We'll order antibiotic in form of Levaquin. Monitor WBC and temperature. Monitor patient's symptoms. GI input is appreciated. Cardiology evaluated the patient already. Continue with supportive measures and symptomatic treatment as per GI recommendations. we'll call anesthesia consult.Labs and medication were reviewed.. Continue same treatment. Continue with symptomatic treatment. Resume home medication. Monitor lytes and vitals. DVT and GI prophylaxis. Further recommendations of the clinical course of the patient DVT prophylaxis: Subcutaneous Lovenox GI Prophylaxis: Ppi Prognosis is guarded
--- NOTE | 2018-07-29 10:59 | P.PN ---
Subjective Progress Note Date: 07/29/18 Principal diagnosis: Intractable hiccups Hiccups have stopped. Patient receiving Reglan and Thorazine. Objective - Vital Signs Vital signs: Vital Signs Temp 97 F L 07/29/18 08:15 Pulse 83 07/29/18 08:15 Resp 18 07/29/18 08:15 BP 131/70 07/29/18 08:15 Pulse Ox 97 07/29/18 08:15 Intake & Output 07/28/18 07/29/18 07/29/18 18:59 06:59 18:59 Intake Total 925 Balance 925 Weight 114.2 kg Intake: Intake, IV Titration 525 Amount Dextrose 5%-0.9% NaCl 1, 525 000 ml @ 75 mls/hr IV . [id number] PASQUALE Rx#:[id number] Oral 400 Other: # Voids 1 1 1 - Exam General appearance: The patient is alert, oriented, in no acute distress. HET: Head is normocephalic and atraumatic. Pupils are equal and reactive. Oropharynx is clear without lesions. Neck: Supple without lymphadenopathy. Trachea midline. Heart: S1 S2. Regular rate and rhythm. Lungs: No crackles or wheezes are heard. Abdomen: Soft, nontender, nondistended with bowel sounds. No peritoneal signs. No palpable organomegaly or masses. Extremities: Normal skin color and turgor. No cyanosis, rash, ulceration, clubbing, or edema. Radial and pedal pulses are 2/4 bilaterally. Neurological: No focal deficits. Strength and sensation are grossly intact. - Labs CBC & Chem 7: 07/29/18 05:58 07/29/18 05:58 Labs: Abnormal Lab Results - Last 24 Hours (Table) 07/28/18 07/28/18 07/29/18 Range/Units 09:24 09:24 05:58 WBC 11.3 H (3.8-10.6) k/uL RBC 4.06 L 3.98 L (4.30-5.90) m/uL Hgb 11.6 L 11.4 L (13.0-17.5) gm/dL Hct 34.3 L 34.0 L (39.0-53.0) % Neutrophils # 8.8 H (1.3-7.7) k/uL Potassium 3.3 L (3.5-5.1) mmol/L Assessment and Plan (1) Intractable hiccups Narrative/Plan: 57-year-old male presents with intractable hiccups developed postoperatively status post recent left hip surgery 1 week ago. Etiology unclear. Hiccups have ceased receiving Reglan and Thorazine Current Visit: Yes Status: Acute Code(s): R06.6 - HICCOUGH SNOMED Code(s): 05730435 (2) Status post total hip replacement, left Current Visit: No Status: Acute Code(s): Z96.642 - PRESENCE OF LEFT ARTIFICIAL HIP JOINT SNOMED Code(s): 724565180644 (3) Hemangioma of liver Narrative/Plan: Per CT. Normal liver function tests. Current Visit: Yes Status: Acute Code(s): D18.03 - HEMANGIOMA OF INTRA- ABDOMINAL STRUCTURES SNOMED Code(s): 11161200 Plan: 1. Considering hiccups have stopped we'll cancel EGD evaluation today this is agreeable with anesthesia services; Dr. Hein. Regular diet. Discharge per medicine. Assessment and plan a care discussed with Dr. Miranda
--- NOTE | 2018-07-29 11:52 | CDI ---
Documentation Clarification Form Date: 07/29/2018 11:29:58 AM From: Nirmala Dumont RN CCDS Admit Date: 07/28/2018 10:08:00 PM Patient Name: Lui Bright Visit Number: [id number] Discharge Date: ATTENTION: The Clinical Documentation Specialists (CDI) and [facility] Coding Staff appreciate your assistance in clarifying documentation. Please respond to the clarification below the line at the bottom and electronically sign. The CDI & [facility] Coding staff will review the response and follow-up if needed. Please note: Queries are made part of the Legal Health Record. If you have any questions, please contact the author of this message via ITS. Dr. Roberts Sheet Possible Sepsis could be related to Gastritis or Gastroenteritis is documented in your Progress Notes on 07/28/2018 and 07/29/2018 History/Risk Factors: 57 y/o male presents to the ED with Hiccups Clinical Indicators: Med Hx Left hip surgery a week ago. Htn arthritis Lab findings: Wbc 15.4 Vital Signs: 135/98 98 98.6F 18 100% ra Other Clinical Indicators: Treatment: Levaquin IVPB Consults: Gi and Cadiology In your professional opinion, can you please clarify Gastritis vs Gastroenteritis ? * Acute Infectious Gastroenteritis specify type if possible * Chronic Infectious Gastroenteritis specify type if possible * Acute Gastritis specify type if possible * Chronic Gastritis specify type if possible * Other, please specify * Unable to determine (Last Revision: August 2017) * acute infectious gastritis or gastroenteritis , mostly with gram negative bacteria, resolving MTDD
[2018-07-29] MEDS ORDERED: METOCLOPRAMIDE ORAL SOLN 10 MG/10 ML CUP PO PRN (13:57)
[2018-07-29] MEDS ORDERED: chlorproMAZINE 25 MG TAB PO PRN (13:57)
[2018-07-29] MEDS: LORazepam 2 MG/ML INJ IV PRN (14:08)
[2018-07-29 16:31] VITALS: BP 124/74; PULSE 108; TEMP 97.2
--- NOTE | 2018-07-29 18:29 | P.DS ---
Providers Date of admission: 07/28/18 22:08 Attending physician: Mateusz Galarza Consults: 07/25/18 22:45 Consult Physician Urgent Consulting Provider: [facility] Consult Reason/Comments: chest pain Do you want consulting provider notified?: Yes 07/26/18 09:45 Consult Physician Routine Consulting Provider: Sean Miranda Consult Reason/Comments: hiccups Do you want consulting provider notified?: Yes 07/27/18 08:34 Consult to Anesthesia Routine Consulting Provider: Anesthesia,Services Consult Reason/Comments: hiccups Primary care physician: [facility] Course: Postoperative hiccups, mostly related to gastritis. Improving He had leukocytosis, mild with mild fever Mild SIRS syndrome, with leukocytosis, mild fever, mild tachycardia and tachypnea. upper resp tract infection sighns and symptoms, continue with levaquin and influenza is negative Possible sepsis, could be related to gastritis, or gastroenteritis Right Liver lesions seen on CT angio of the thorax ,Slightly larger from prior study, suspect hemangioma adjacent to thin-walled cyst. Follow-up as an outpatient Dehydration, improved Essential hypertension History of osteoarthritis Status post recent left hip arthroplasty about one week prior to hospitalization Hospital course This is a pleasant 57 years old male with past medical history of hypertension and osteoarthritis, who had recent left total hip arthroplasty about one week earlier to admission, after the surgery patient was starting to have hiccups which were mild, however as they get progressively worse, he decided to come to the hospital. However patient denies chest pain. No dyspnea. No abdominal pain. He is tolerating his diet well. He had regular bowel movement, with no nausea or vomiting. Patient has some mild leukocytosis of 15.4, down to 13 K. Which looks hemodilution normal. Patient had mild fever yesterday of 99.7. His heart rate was around [address] Patient had CT angiogram of the abdomen which showing no PE, patient also was complaining of from epigastric abdominal pain and tenderness. Patient was started on Levaquin and his symptoms improved including his abdominal pain and hiccups. He is tolerating diet well and has regular bowel movements. Patient received some symptomatic therapy with Reglan and Thorazine. But he will be discharged on small course of Reglan as needed. Patient has been evaluated by surgical and gastroenterology team. He was planned to have EGD today however this has been canceled after his intractable hiccups resolved. He didn't have hiccups for more than 24 hours. Cardiology team have been consulted because thoughts patient had some dyspnea on admission. However patient have no more dyspnea or chest pain. Patient was cleared by both cardiology and GI team for discharge Also on CAT scan patient showed to have possible hemangioma of the liver which is a slightly larger in size. Patient and were informed about this problem and instructed to follow up with the GI as per appointments and they agree Problems and management plans were discussed with the patient's and he verbalized understanding and acceptance. was at bedside Patient was found stable and can be discharged home and guarded prognosis, however he needs follow-up as an outpatient. Patient agrees with the appointments and timing and said he will follow-up as instructed Gen: patient is a AAOx3, no distress CVS: S1-S2, RRR, no murmur Lungs: B/L CTA, no wheezing Abdomen: soft, no distention, no tenderness, positive bowel sounds Extremity: no leg edema or induration Time spent more than 35 minutes Patient Condition at Discharge: Stable Plan - Discharge Summary Discharge Rx Participant: Yes New Discharge Prescriptions: New Levofloxacin [Levaquin] 500 mg PO DAILY 5 Days #5 tab Metoclopramide Oral Soln [Reglan Oral Soln] 10 mg PO ACHS PRN #10 ml PRN Reason: hiccups Continue Allopurinol [Zyloprim] 100 mg PO TID Aspirin 325 mg PO BID #60 tab HYDROcodone/APAP 5-325MG [Franklin 5-325] 1 - 2 tab PO Q6HR PRN #56 tab PRN Reason: Pain Chlorthalidone 25 mg PO DAILY Omeprazole [PriLOSEC] 40 mg PO DAILY Potassium Chloride [Klor-Con 10] 10 meq PO DAILY Sennosides [Senokot] 1 tab PO DAILY Discharge Medication List Allopurinol [Zyloprim] 100 mg PO TID 07/12/18 [History] Aspirin 325 mg PO BID #60 tab 07/20/18 [Rx] HYDROcodone/APAP 5-325MG [Franklin 5-325] 1 - 2 tab PO Q6HR PRN #56 tab 07/20/18 [Rx] Chlorthalidone 25 mg PO DAILY 07/25/18 [History] Omeprazole [PriLOSEC] 40 mg PO DAILY 07/25/18 [History] Potassium Chloride [Klor-Con 10] 10 meq PO DAILY 07/25/18 [History] Sennosides [Senokot] 1 tab PO DAILY 07/25/18 [History] Levofloxacin [Levaquin] 500 mg PO DAILY 5 Days #5 tab 07/29/18 [Rx] Metoclopramide Oral Soln [Reglan Oral Soln] 10 mg PO ACHS PRN #10 ml 07/29/18 [Rx] Follow up Appointment(s)/Referral(s): Sean Miranda MD [STAFF PHYSICIAN] - 08/10/18 2:00 pm ([place] Office inside [facility]. ) Victor Manuel Trivedi MD [Primary Care Provider] - 08/02/18 10:00 am (Wednesday) Jennie Mathur MD [STAFF PHYSICIAN] - 08/16/18 2:30 pm ([employer].) Patient Instructions/Handouts: Hiccups (DC) Activity/Diet/Wound Care/Special Instructions: soft GI diet and advance it as tolerated activity is limited till you see your doctor Discharge Disposition: HOME SELF-CARE
== END 2018-07-29 18:01 | disposition home health service (06) | DRG 872 ==
LOC: EC 19:15 → 1SOBS 22:44 → 3SCARD 07-26 05:39 → OBSVTOIN 07-28 22:08
PROVIDERS: ADMIT Hospitalist; ATTEND Hospitalist
DX: A41.9 Sepsis, unspecified organism (principal); K76.89 Other specified diseases of liver; K29.00 Acute gastritis without bleeding; D18.03 Hemangioma of intra-abdominal structures; E66.9 Obesity, unspecified; E86.0 Dehydration; E87.6 Hypokalemia; I10 Essential (primary) hypertension; K21.9 Gastro-esophageal reflux disease without esophagitis; K44.9 Diaphragmatic hernia without obstruction or gangrene; K43.9 Ventral hernia without obstruction or gangrene; M19.90 Unspecified osteoarthritis, unspecified site; R07.9 Chest pain, unspecified; R06.6 Hiccough; R79.89 Other specified abnormal findings of blood chemistry; D72.829 Elevated white blood cell count, unspecified; Z68.34 Body mass index [BMI] 34.0-34.9, adult; Z79.82 Long term (current) use of aspirin; Z79.899 Other long term (current) drug therapy; Z85.828 Personal history of other malignant neoplasm of skin; Z96.642 Presence of left artificial hip joint; Z82.49 Family history of ischemic heart disease and other diseases of the circulatory system
CPT/HCPCS: 36415; 71046; 71275; 80048; 80053; 83735; 83880; 84132; 84484; 85025; 85379; 85610; 85730; 87502; 93306; 96372; 96374; 96375; 99285

== ENCOUNTER → 2018-10-24 | Outpatient (CLI) | payer BC ==
[2018-10-24 11:12] LABS: HCT 43.5 % (39.0-53.0); HGB 15.8 gm/dL (13.0-17.5); MCH 29.2 pg (25.0-35.0); MCHC 36.2 g/dL (31.0-37.0); MCV 80.7 fL (80.0-100.0); Mean Platelet Volume 7.5; Platelet Count 223 k/uL (150-450); RDW 14.8 % (11.5-15.5); WBC 6.4 k/uL (3.8-10.6)
[2018-10-24 11:22] LABS: INR 0.9 (<1.2); Partial Thromboplastin Time 24.8 sec (22.0-30.0); Prothrombin Time 9.9 sec (9.0-12.0)
[2018-10-24 11:37] LABS: ALT 27 U/L (21-72); AST 30 U/L (17-59); African American GFR (CKD) >90 (>60 ml/min/1.73 sqM); Albumin 4.5 g/dL (3.5-5.0); Alkaline Phosphatase 94 U/L (38-126); Anion Gap 9 mmol/L; Blood Urea Nitrogen 15 mg/dL (9-20); Calcium 9.6 mg/dL (8.4-10.2); Carbon Dioxide 28 mmol/L (22-30); Chloride 104 mmol/L (98-107); Glucose 105 mg/dL (74-99); Potassium 3.3 mmol/L (3.5-5.1); Sodium 141 mmol/L (137-145); Total Bilirubin 0.9 mg/dL (0.2-1.3); Total Protein 6.9 g/dL (6.3-8.2)
[2018-10-24 12:00] LABS: Appearance,Urine Clear (Clear); Bilirubin,Urine Negative (Negative); Blood,Urine Negative (Negative); Color,Urine Yellow; Glucose,Urine (UA) Negative (Negative); Ketones,Urine Negative (Negative); Leukocyte Esterase,Urine Negative (Negative); Nitrite,Urine Negative (Negative); Protein,Urine Trace (Negative); Specific Gravity,Urine 1.021 (1.001-1.035); Urobilinogen,Urine <2.0 mg/dL (<2.0)
[2018-10-24 12:05] LABS: Anisocytosis (M) Present; Eosinophils # (M) 0.13 k/uL (0-0.7); Lymphocytes # (M) 0.96 k/uL (1.0-4.8); Monocytes # (M) 0.38 k/uL (0-1.0); Neutrophils # (M) 4.93 k/uL (1.3-7.7); Neutrophils % (M) 77 %; Nucleated Red Blood Cells 0 /100 WBC (0-0); Total Cells Counted 100
[2018-10-24 20:17] LABS: Hemoglobin A1C 5.4 % (4.0-6.0)
== END | disposition home or self-care (01) ==
LOC: LABPAT 10:43
PROVIDERS: ATTEND Orthopaedic Surgery
DX: Z01.812 Encounter for preprocedural laboratory examination (principal); E66.9 Obesity, unspecified; Z68.34 Body mass index [BMI] 34.0-34.9, adult
CPT/HCPCS: 36415; 80053; 81003; 83036; 85027; 85610; 85730; 87070

== ENCOUNTER 2018-11-01 05:28 | Inpatient (IN) | payer BC ==
[~2018-11-01 05:28] MED LIST: ACETAMINOPHEN TAB 500 MG TAB PO ONE; DEXAMETHASONE SOD PHOSPHATE 10 MG/ML 1 ML VIAL IV ONE; HYDROmorphone 0.5 MG/0.5 ML SYRINGE IVP PRN; LIDOCAINE 1% 20 ML VIAL (10MG/ML) FOR IV START INTRADERMA PRN; MELOXICAM 7.5 MG TAB PO ONE; MIDAZOLAM 2 MG/2 ML VIAL IV PRN; ONDANSETRON 4 MG/2 ML VIAL IVP ONE; SCOPOLAMINE 1.5MG/72HR PATCH TRANSDERM ONE; TRANEXAMIC ACID 1,000 MG in SODIUM CHLORIDE 0.9% 100 ML IVPB ONE; ceFAZolin IN SWFI 2 GM/20 ML SYRINGE IVP ONE
[2018-11-01] MEDS ORDERED: ROPIVACAINE 246.25 MG, EPINEPHrine 0.5 MG, KETOROLAC 30 MG, cloNIDine HCL/PF 80 MCG, WA... MISCELLANE ONE ×5 (06:03)
[2018-11-01] MEDS: LACTATED RINGERS 1,000 ML IV SCH (06:20)
[2018-11-01] MEDS ORDERED: SODIUM CHLORIDE 0.9% 100 ML BAG ONE (06:55)
[2018-11-01] MEDS ORDERED: LIDOCAINE 1% INJ 10MG/ML (20 ML MDV) ONE (06:55)
[2018-11-01] MEDS ORDERED: HEPARIN SODIUM,PORCINE 10,000 UNIT/ML 1 ML VIAL ONE (06:55)
[2018-11-01] MEDS ORDERED: MIDAZOLAM 2 MG/2 ML VIAL ONE (06:55)
[2018-11-01] MEDS ORDERED: SODIUM CHLORIDE 0.9% IRRIG 1,000 ML BTL IRRIGATION ONE (06:55)
[2018-11-01] MEDS ORDERED: TRANEXAMIC ACID 1,000 MG/10 ML VIAL ONE (06:55)
[2018-11-01] MEDS ORDERED: fentaNYL (PF) 50 MCG/ML 2 ML AMP ONE (06:55)
[2018-11-01] MEDS ORDERED: PROPOFOL 10 MG/ML 20 ML VIAL IV ONE (06:55)
[2018-11-01] MEDS ORDERED: diphenhydrAMINE 50 MG/ML 1 ML VIAL ONE (06:55)
[2018-11-01] MEDS ORDERED: ONDANSETRON 4 MG/2 ML VIAL IVP PRN (06:59)
[2018-11-01] MEDS ORDERED: HYDROcodone/APAP 5-325MG 1 EACH TAB PO PRN (06:59)
[2018-11-01] MEDS ORDERED: HYDROmorphone 1 MG/ML 1 ML SYRINGE IVP PRN (06:59)
[2018-11-01] MEDS ORDERED: HYDROmorphone 0.5 MG/0.5 ML SYRINGE IVP PRN ×2 (06:59)
[2018-11-01] MEDS ORDERED: DIAZEPAM 5 MG TAB PO PRN (06:59)
[2018-11-01] MEDS ORDERED: NALOXONE 0.4 MG/ML 1 ML VIAL IV PRN (06:59)
[2018-11-01] MEDS ORDERED: MAGNESIUM HYDROXIDE 2,400 MG/10 ML CUP PO PRN (06:59)
[2018-11-01] MEDS ORDERED: hydrOXYzine PAMOATE 25 MG CAP PO PRN (06:59)
[2018-11-01] MEDS ORDERED: ceFAZolin 3,000 MG in SODIUM CHLORIDE 0.9% IRRIGATIO 3,000 ML IRRIGATION ONE (07:00)
[2018-11-01] MEDS ORDERED: LACTATED RINGERS 1,000 ML IV ONE (07:53)
--- NOTE | 2018-11-01 08:45 | XR ---
EXAMINATION TYPE: XR Hip Limited RT DATE OF EXAM: 11/01/2018 COMPARISON: NONE HISTORY: Postop TECHNIQUE: One view submitted. FINDINGS: There is postsurgical change in near anatomic alignment. There is soft tissue edema and emphysema. IMPRESSION: 1. Postoperative change. Appears in near-anatomic alignment.
--- NOTE | 2018-11-01 08:47 | P.OP ---
Date of Procedure: 11/01/18 Preoperative Diagnosis: Severe osteoarthritis right hip Postoperative Diagnosis: Severe osteoarthritis right hip Procedure(s) Performed: Right total hip arthroplasty with a direct anterior approach Implants: Delgado and nephew Polarstem size 3 standard Delgado & Nephew R3, 3 hole acetabular shell, 56 mm Delgado [employer] Nephew reflection 6.5 mm cancellus screw, 20 mm 2 Delgado [employer] Nephew R3, XLPE 20 acetabular liner Delgado & Nephew Oxinium femoral head 36 m, +4 All components were press-fit. The articulation is Oxinium on polyethylene. Anesthesia: spinal Surgeon: Genaro Casey Sumo Wrestler #1: Amy Dorado Estimated Blood Loss (ml): 500 (191 mL returned with Cell Saver) Pathology: other (Femoral head) Condition: stable Disposition: PACU Indications for Procedure: After failure of conservative treatment we discussed the surgical and nonsurgical treatment options at length. Patient wishes to proceed with a total hip arthroplasty with a direct anterior approach. Complications specific to this procedure were discussed at length, including but not limited to infection, leg length discrepancy, dislocation, and nerve injury. Patient is aware of all these complications and informed consent was obtained Operative Findings: The operative findings are consistent with severe osteoarthritis of the right hip Description of Procedure: Patient was seen and evaluated in the preoperative area, consent was reviewed, and the surgical site was marked with a skin marker. Patient was then brought to the operating room and given prophylactic antibiotics intravenously. 1 g of Tranexamic acid was also given. A spinal anesthetic was administered by the anesthesia department. The patient was then placed on the [place] table with the bony prominences well-padded. The hip area was then prepped and draped in usual sterile fashion. A universal timeout was then performed, which confirmed the patient's name, surgical site, ALLERGIES, and procedure being performed. Next the incision site was located at 1 cm distal and 1 cm lateral to the anterior superior iliac spine. The skin and subcutaneous tissues were sharply incised. Incision was carefully dissected down to the fascia overlying the tensor fascia florida muscle. This fascia was then incised in line with the incision. Next, using blunt finger dissection, the tensor fascia flor[place] muscle was dissected off its investing fascia. The muscle was then carefully retracted laterally with a cobra retractor over the lateral neck of the femur. Next, the circumflex vessels were identified and cauterized using the AquaMantis device. The anterior hip capsule was then exposed. The capsule was then opened and an inverted T fashion. Cobra retractors were then placed intracapsularly. The proximal femur was then visualized. The femoral neck was then osteotomized appropriate level above the lesser trochanter. Small amount of traction was placed with the [place] table. A small wedge of bone was then removed from the remaining femoral head. Next, using a corkscrew femoral head was easily removed from the acetabulum. On gross visual inspection, the femoral head had complete loss of articular cartilage in m ultiple periarticular osteophytes. Attention was then turned to the acetabulum. the acetabulum was exposed and any remaining labrum was excised. Sequential reaming of the acetabulum was performed using fluoroscopic guidance. When the appropriate size was reached, a trial was then placed. The position and fit of the trial was checked with fluoroscopy. The trial was then removed. Then, using fluoroscopic guidance, the final implant was impacted at 20 of anteversion and 40 of abduction, and fully seated in the acetabulum. 2 screws were then placed in the acetabulum. Again fluoroscopy was used to check position of the screws. Next, the liner was then impacted, with a 20 elevated liner located in the anterior superior quadrant. Component locking was confirmed. Attention was then directed to the femur. With the aid of the [place] table, the femur was externally rotated to approximately 130, extended, and abducted under the opposite leg. A side hook was then placed under the proximal femur, and the side hook elevator was used to elevate the proximal femur. Retractors were then placed. A capsular release was performed, as well as a release of the conjoined tendon, which afforded excellent visualization of the proximal femur. Next, a box osteotome was used to lateralize the proximal femur. A grinder hand was then used to locate the femoral canal. Sequential broaching was then performed with appropriate size which afforded excellent fixation in the proximal femur. A trial was then placed with appropriate head and neck, and the hip was gently reduced with the aid of the [place] table. Fluoroscopy was then used to check position of the components, as well as to ensure equal leg lengths. The hip was then gently dislocated and the trials were then removed. Final implants were then impacted and the hip was again reduced. Final fluoroscopic x-rays confirmed that the components were in anatomic position, as well as equal leg lengths. The hip was also taken through range of motion, and found to be stable. The hip was then copiously irrigated with antibiotic solution with pulsatile lavage. The hip was then irrigated with Irrisept solution. The soft tissues were then injected with a ropivacaine solution, which consisted of 246.25 mg of ropivacaine, 0.5 mg of epinephrine, 30 mg of Toradol, 80 g of clonidine, and 48.45 mL of sterile water, for a total of 100 mL of fluid injected. A second dose of 1 g of Tranexamic acid was also given. the fascia was then closed with 2-0 strata fix suture. The subcutaneous tissue was closed with 3-0 Vicryl. The subcuticular tissue was closed with 3-0 strata fix suture. The skin was then closed with Dermabond glue and a sterile silver dressing. The patient was then transferred to the recovery room in stable c ondition. The fitness assistant CARISSA Cardenas was required due to the complexity of surgery, and the need for skilled rn neurosurgical for positioning, draping, exposure, retraction, and closure of the wound.
--- NOTE | 2018-11-01 08:57 | FL ---
EXAMINATION TYPE: FL guidance operating room DATE OF EXAM: 11/01/2018 HISTORY: Flouroscopy time 66 seconds of fluoroscopy provided. IMPRESSION: 1. Fluoroscopy time.
[2018-11-01 09:52] VITALS: BMI 34.9
[2018-11-01] MEDS: SODIUM CHLORIDE 0.9% 1,000 ML IV SCH (10:02)
[2018-11-01] MEDS: NON-FORMULARY DRUG (Potassium [Potassium] 99 MG) PO SCH (15:14)
[2018-11-01] MEDS: ceFAZolin IN SWFI 2 GM/20 ML SYRINGE IVP SCH ×2 (15:15→23:18)
[2018-11-01] MEDS: HYDROcodone/APAP 5-325MG 1 EACH TAB PO PRN ×2 (16:49→23:05)
--- NOTE | 2018-11-01 19:32 | P.CONS ---
History of Present Illness - Reason for Consult Consult date: 11/01/18 Medical clearance and management - Chief Complaint Right total hip arthroplasty - History of Present Illness Patient is a 58-year-old male with a known history of hypertension, osteoarthritis, previous history of left hip replacement was admitted to the hospital for elective right total hip arthroplasty. Patient tolerated the procedure very well. Currently blood pressure in the lower side. Denied any complaints of chest pain or shortness of breath. No nausea vomiting or diarrhea. No headache or dizziness lightheadedness. Patient able to get up from the bed. No fever no chills. Pain is fairly controlled with medications. Review of Systems Constitutional: Patient denies any fever or chills . No generalized weakness or weight loss. Abdomen: Patient denied nausea vomiting and diarrhea and abdominal pain. Cardiovascular: Patient denies any chest pain or short of breath no palpitations. Respiratory: patient denied any cough is from production. No shortness of breath Neurologic: Patient denied any numbness or tingling headache. Musculoskeletal: Patient denies any complaints of joint swelling or deformity. Skin: Negative Psychiatric: Negative Endocrine: No heat or cold intolerance. No recent weight gain. Genitourinary: No dysuria or hematuria. All other 14 point ROS negative except the above Past Medical History Past Medical History: Cancer, Hypertension, Osteoarthritis (OA) Additional Past Medical History / Comment(s): SKIN CANCER ," HAD BLEEDING FROM COLON HIGH DOSE OF ASPIRIN HISTORY several years ago, hx. of post-op hiccups for 9 days after hip replacement in July & was admitted, eventually resolved on their own History of Any Multi-Drug Resistant Organisms: None Reported Past Surgical History: Joint Replacement, Orthopedic Surgery Additional Past Surgical History / Comment(s): COLONOSCOPY, HEMORRHOIDECTOMY, VASECTOMY, CARPAL TUNNEL LEFT WRIST, left hip replaced 3--19 Past Anesthesia/Blood Transfusion Reactions: No Reported Reaction Past Psychological History: No Psychological Hx Reported Smoking Status: Never smoker Past Alcohol Use History: None Reported Past Drug Use History: None Reported - Past Family History Mother Family Medical History: No Reported History Medications and Allergies Home Medications Medication Instructions Recorded Confirmed Type Allopurinol [Zyloprim] 100 mg PO BID 07/12/18 11/01/18 History Chlorthalidone 25 mg PO DAILY 07/25/18 11/01/18 History Potassium 99 mg PO DAILY 10/26/18 11/01/18 History Allergies Allergy/AdvReac Type Severity Reaction Status Date / Time No Known Allergies Allergy Verified 11/01/18 10:14 Physical Exam Vitals: Vital Signs Temp Pulse Pulse Pulse Resp BP BP 11/01/18 10:37 65 16 117/78 11/01/18 10:22 67 16 123/80 11/01/18 10:07 59 L 16 117/76 11/01/18 09:52 59 L 16 120/74 11/01/18 09:39 97.7 F 58 L 16 114/75 11/01/18 09:13 63 16 109/62 11/01/18 08:58 94 16 118/67 11/01/18 08:43 97 F L 68 16 119/71 11/01/18 06:02 97.8 F 65 18 136/81 Pulse Ox 11/01/18 10:37 97 11/01/18 10:22 97 11/01/18 10:07 98 11/01/18 09:52 96 11/01/18 09:39 96 11/01/18 09:13 94 L 11/01/18 08:58 94 L 11/01/18 08:43 95 11/01/18 06:02 95 Intake and Output 10/31/18 11/01/18 11/01/18 22:59 06:59 14:59 Intake Total 200 1001 Output Total 500 Balance 200 501 Intake: IV 200 1001 Output: Estimated Blood Loss 500 PHYSICAL EXAMINATION: Patient is lying in the bed comfortably, no acute distress, awake alert and oriented.. HEENT: Normocephalic. Neck is supple. Pupils reactive. Nostrils clear. Oral cav ity is moist. Ears reveal no drainage. Neck reveals no JVD, carotid bruits, or thyromegaly. CHEST EXAMINATION: Trachea is central. Symmetrical expansion. Lung rosales clear to auscultation and percussion. CARDIAC: Normal S1, S2 with no gallops. No murmurs ABDOMEN: Soft. Bowel sounds normal. No organomegaly. No abdominal bruits. Extremities: reveal no edema. No clubbing or cyanosis Neurologically awake, alert, oriented x3 with well-coordinated movements. No focal deficits noted Skin: No rash or skin lesions. Psychiatric: Coperative. Nonsuicidal Musculoskeletal: No joint swelling or deformity. Normal range of motion. Results CBC & Chem 7: 11/01/18 06:20 Labs: Abnormal Lab Results - Last 24 Hours (Table) 11/01/18 Range/Units 06:20 Potassium 3.4 L (3.5-5.1) mmol/L Assessment and Plan Assessment: Osteoarthritis. Status post right total arthroplasty on 11/01/2089 Hypertension Hypokalemia. Replaced. History of skin cancer DVT prophylaxis Obesity with BMI 34.9 Plan: Patient will be continued on pain management and bowel regimen and incentive spirometry. Encourage ambulation. Continue with DVT prophylaxis as per orthopedic surgery recommendations. Will hold chlorthalidone due to hypokalemia and blood pressure is not elevated this time. Can be started back up on discharge. We will continue to follow closely. Replaced potassium. Further admissions based on the clinical course. Thank you for your consult.
[2018-11-01] MEDS ORDERED: SENNOSIDES-DOCUSATE SODIUM 1 EACH TAB PO SCH (21:00)
[2018-11-01] MEDS: ASPIRIN 325 MG TAB PO SCH (23:05)
[2018-11-01] MEDS: ALLOPURINOL 100 MG TAB PO SCH (23:05)
[2018-11-02] MEDS: LACTATED RINGERS 1,000 ML IV SCH (01:24)
[2018-11-02] MEDS: SODIUM CHLORIDE 0.9% 1,000 ML IV SCH ×2 (01:24→10:11)
[2018-11-02] MEDS: ASPIRIN 325 MG TAB PO SCH (07:30)
[2018-11-02] MEDS: ALLOPURINOL 100 MG TAB PO SCH (07:30)
[2018-11-02] MEDS: HYDROcodone/APAP 5-325MG 1 EACH TAB PO PRN (07:31)
[2018-11-02 08:04] VITALS: BP 127/76; PULSE 69; RESP 16; TEMP 98.3
[2018-11-02] MEDS: NON-FORMULARY DRUG (Potassium [Potassium] 99 MG) PO SCH (08:27)
--- NOTE | 2018-11-02 08:57 | P.DS ---
Providers Date of admission: 11/01/18 05:28 Expected date of discharge: 11/02/18 Attending physician: Genaro Casey Consults: 11/01/18 06:59 Consult Physician Routine Consulting Provider: John Ac Consult Reason/Comments: medical management Do you want consulting provider notified?: Yes Primary care physician: Victor Manuel Trivedi - Discharge Diagnosis(es) (1) Osteoarthritis of right hip Current Visit: Yes Status: Acute (2) S/P total hip arthroplasty Current Visit: Yes Status: Acute Hospital Course: This is a 58-year-old male with known history of degenerative arthritis of the right hip. The patient presents for evaluation. After discussion and consideration patient elects to proceed with total hip arthroplasty. The patient is seen preoperatively by Dr. Casey and medically cleared for surgery by their primary care physician. Patient is admitted to [facility] on 11/01/2018 for total hip arthroplasty. The procedures performed without complication or sequelae. The patient is doing well postoperatively. Labs and vital signs are stable on day of discharge. On day of discharge patient's hip incision is healing well. There is minimal erythema. There is no drainage noted at this time. There is minimal soft tissue swelling to the hip and thigh. Patient has full foot and ankle motion without difficulty or pain. Calf is soft and nontender to palpation. Neurovascular status to the right lower extremity is intact. Patient is discharged home in good condition. Opioid start talking form is reviewed and signed at patient bedside. Please see med rec for accurate list of home medications. Plan - Discharge Summary Discharge Rx Participant: Yes New Discharge Prescriptions: New Aspirin 325 mg PO BID #60 tab HYDROcodone/APAP 5-325MG [[place] 5-325] 1 - 2 tab PO Q6HR PRN #56 tab PRN Reason: Pain Sennosides [Senokot] 1 tab PO BID #60 tablet No Action Allopurinol [Zyloprim] 100 mg PO BID Chlorthalidone 25 mg PO DAILY Potassium 99 mg PO DAILY Discharge Medication List Allopurinol [Zyloprim] 100 mg PO BID 07/12/18 [History] Chlorthalidone 25 mg PO DAILY 07/25/18 [History] Potassium 99 mg PO DAILY 10/26/18 [History] Aspirin 325 mg PO BID #60 tab 11/02/18 [Rx] HYDROcodone/APAP 5-325MG [[place] 5-325] 1 - 2 tab PO Q6HR PRN #56 tab 11/02/18 [Rx] Sennosides [Senokot] 1 tab PO BID #60 tablet 11/02/18 [Rx] Follow up Appointment(s)/Referral(s): Genaro Casey DO [Doctor of Osteopathic Medicine] - 11/14/18 2:20 pm Activity/Diet/Wound Care/Special Instructions: Weightbearing as tolerated with walker. Leave dressing intact. Dressing may be removed by home care nurse or by patient in 10 days. May shower with dressing on. Please follow-up with [facility] in 2 weeks and call with any questions or concerns, . Discharge Disposition: HOME SELF-CARE
[2018-11-02] MEDS ORDERED: MELOXICAM 7.5 MG TAB PO SCH (09:00)
[2018-11-02 09:05] LABS: Basophils % (A) 0 %; Eosinophils # (A) 0.1 k/uL (0-0.7); Eosinophils % (A) 0 %; HCT 37.7 % (39.0-53.0); Lymphocytes # (A) 1.2 k/uL (1.0-4.8); Lymphocytes % (A) 9 %; MCH 26.7 pg (25.0-35.0); MCHC 33.1 g/dL (31.0-37.0); MCV 80.4 fL (80.0-100.0); Monocytes # (A) 0.7 k/uL (0-1.0); Monocytes % (A) 5 %; Neutrophils # (A) 11.5 k/uL (1.3-7.7); Neutrophils % (A) 85 %; Platelet Count 210 k/uL (150-450); RBC 4.68 m/uL (4.30-5.90); RDW 15.7 % (11.5-15.5); WBC 13.5 k/uL (3.8-10.6)
[2018-11-02 09:20] LABS: African American GFR (CKD) >90 (>60 ml/min/1.73 sqM); Anion Gap 7 mmol/L; Blood Urea Nitrogen 18 mg/dL (9-20); Calcium 8.8 mg/dL (8.4-10.2); Carbon Dioxide 28 mmol/L (22-30); Chloride 102 mmol/L (98-107); Glucose 190 mg/dL (74-99); Potassium 3.3 mmol/L (3.5-5.1); Sodium 137 mmol/L (137-145)
[2018-11-02 09:23] LABS: HGB 12.5 gm/dL (13.0-17.5)
[2018-11-02] MEDS ORDERED: POTASSIUM CHLORIDE ER 20 MEQ TAB.ER PO STA (09:47)
== END 2018-11-02 12:13 | disposition home or self-care (01) | DRG 470 ==
LOC: 2ORMAIN 05:28 → 4SSUR 08:45
PROVIDERS: ADMIT Orthopaedic Surgery; ATTEND Orthopaedic Surgery
PROC: 30233N0 Transfusion of Autologous Red Blood Cells into Peripheral Vein, Percutaneous Approach (ICD-10-PCS; 2018-11-01)
PROC: 0SR906A Replacement of Right Hip Joint with Oxidized Zirconium on Polyethylene Synthetic Substitute, Uncemented, Open Approach (ICD-10-PCS; principal; 2018-11-01 07:00)
DX: M16.11 Unilateral primary osteoarthritis, right hip (principal); D18.09 Hemangioma of other sites; I10 Essential (primary) hypertension; E87.6 Hypokalemia; M72.2 Plantar fascial fibromatosis; L57.0 Actinic keratosis; M10.9 Gout, unspecified; E78.5 Hyperlipidemia, unspecified; E66.9 Obesity, unspecified; Z68.34 Body mass index [BMI] 34.0-34.9, adult; Z79.899 Other long term (current) drug therapy; Z96.642 Presence of left artificial hip joint; Z85.828 Personal history of other malignant neoplasm of skin; Z98.52 Vasectomy status; Z87.19 Personal history of other diseases of the digestive system; Z98.890 Other specified postprocedural states; Z82.49 Family history of ischemic heart disease and other diseases of the circulatory system
CPT/HCPCS: 73501; 80048; 84132; 85025; 86850; 86891; 86900; 86901; 88300

== ENCOUNTER → 2020-06-05 | Outpatient (CLI) | payer BC ==
[2020-06-05 08:34] VITALS: BP 158/92; PULSE 66; RESP 18; TEMP 97.4
--- NOTE | 2020-06-05 19:23 | P.PAINCN ---
History of Present Illness - Reason for Consult Consult date: 06/05/20 - History of Present Illness This is a 59 years old male with a chronic history of severe low back pain started 3 years ago, his big nose with lumbar spondylosis and lumbar degenerative disc disease patient had diagnostic medial branch block lumbar area done at [facility] from L2 to S1 bilaterally and she had excellent pain relief, and she was referred to [facility] pain clinic for radiofrequency thermocoagulation of the median branch lumbar area, patient denies any motor or sensory deficit she denies any fever or night sweats, Past Medical History Past Medical History: Cancer, Hypertension, Osteoarthritis (OA), Sleep Apnea/CPAP/BIPAP Additional Past Medical History / Comment(s): hx skin ca, " HAD BLEEDING FROM COLON" HIGH DOSE OF ASPIRIN HISTORY, hx of gout History of Any Multi-Drug Resistant Organisms: None Reported Past Surgical History: Joint Replacement, Orthopedic Surgery, Tonsillectomy Additional Past Surgical History / Comment(s): epidural for pain, COLONOSCOPY, HEMORRHOIDECTOMY, VASECTOMY, CARPAL TUNNEL LEFT WRIST, cliff hip replacement Past Anesthesia/Blood Transfusion Reactions: No Reported Reaction Past Psychological History: No Psychological Hx Reported Smoking Status: Never smoker Past Alcohol Use History: Rare Past Drug Use History: None Reported - Past Family History Mother Family Medical History: No Reported History Medications and Allergies Home Medications Medication Instructions Recorded Confirmed Type allopurinoL [Zyloprim] 100 mg PO DAILY 07/12/18 06/03/20 History Chlorthalidone 25 mg PO DAILY 07/25/18 06/03/20 History Potassium 99 mg PO DAILY 10/26/18 06/03/20 History Ibuprofen 800 mg PO TID 06/03/20 06/03/20 History Allergies Allergy/AdvReac Type Severity Reaction Status Date / Time No Known Allergies Allergy Verified 06/03/20 14:30 Physical Exam Vitals: Vital Signs Temp Pulse Resp BP Pulse Ox 06/05/20 08:25 97.4 F L 66 18 158/92 97 Physical Examinations : -Constitutiona : Cooperative , not in acute distress . -HEENT : nech : supple , no Lymphadenopathy , normal thyroid size . : eyes : no ptosis , no icterus, no photophobia . - neurologic : Cranial nerve II to XII intact , no focal neurological deffecit . -psychatric : alert , oriented X 3 , appropriate affect , intact judgment and insight . -Lymphatic : no Lymphadenopathy . - musculoskeltal : Lumber spine moter stegnth lower extremities ,thigh and legs 5/5 Right side , 5/5 Left side deep tendon reflexes : normal Knee Jerk , normal ankle Jerk lumber facet Loading Test =positive Right , posiutive Left Range of motion of the lumbar spine Flexion 30 degrees, extension 10 degrees strait leg raising test = positive at 30 degree Fabere test= positive Right , and positive LT . Sever tenderness over the Sacroiliac joint on the Right , and Left sides Results Comments: MRI of the lumbar spine= lumbar degenerative disc disease Lumbar spondylosis with lumbar facet arthropathy. Lumbar central canal stenosis Assessment and Plan Plan: Assessment and plan= lumbar spondylosis with lumbar facet arthropathy without myelopathy Lumbar degenerative disc disease Lumbar spinal stenosis. Patient had diagnostic medial branch block L2 through S1 done at the [facility], and she had excellent pain relief After the block for this reason she would be a good candidate to have RFA of the medial branch lumbar area, Patient will be good candidate to have RFA of the medial branch at L3, L4, L5 (denervate the facet joint at L4 5 and L5-S1 ) (Insurance would not approve doing RFA more than 3 levels bilaterally) Time with Patient: Greater than 30 PQRS Measure Charge Sheet PQRS Narrative: Smoking Status Never smoker Blood Pressure 158/92 Pain Intensity [Back] 7 Scale Used Numeric (1 - 10) Hx Alcohol Use (MH) Yes Home Medications: Ambulatory Orders allopurinoL [Zyloprim] 100 mg PO DAILY 07/12/18 Chlorthalidone 25 mg PO DAILY 07/25/18 Potassium 99 mg PO DAILY 10/26/18 Ibuprofen 800 mg PO TID 06/03/20
== END | disposition home or self-care (01) ==
LOC: PNWHC3 08:14
PROVIDERS: ATTEND Specialist
DX: M48.061 Spinal stenosis, lumbar region without neurogenic claudication (principal); M51.36 Other intervertebral disc degeneration, lumbar region; M47.816 Spondylosis without myelopathy or radiculopathy, lumbar region; M19.90 Unspecified osteoarthritis, unspecified site; I10 Essential (primary) hypertension; Z79.899 Other long term (current) drug therapy
CPT/HCPCS: 99211

== ENCOUNTER 2020-08-30 06:04 | Day surgery (SDC) | payer BC ==
[2020-08-27 09:09] VITALS: BMI 36.2
[2020-08-30 06:29] VITALS: RESP 16; TEMP 97.2
[2020-08-30] MEDS ORDERED: LIDOCAINE 1% (10MG/ML) FOR IV START INTRADERMA ONE (06:34)
[2020-08-30] MEDS ORDERED: LACTATED RINGERS 1,000 ML IV ONE (06:34)
[2020-08-30] MEDS ORDERED: MIDAZOLAM 2 MG/2 ML VIAL ONE (06:59)
[2020-08-30] MEDS ORDERED: ROPIVACAINE 5MG/ML 20ML VIAL ONE (06:59)
[2020-08-30] MEDS ORDERED: fentaNYL (PF) 50 MCG/ML 2 ML AMP ONE (06:59)
[2020-08-30] MEDS ORDERED: LIDOCAINE 1% INJ 10MG/ML (20 ML MDV) ONE (06:59)
--- NOTE | 2020-08-30 07:48 | P.PCN ---
Date of Procedure: 08/30/20 Description of Procedure: PREOPERATIVE DIAGNOSIS: Lumbar Spondylosis POSTOPERATIVE DIAGNOSIS: Same PROCEDURES: Radiofrequency ablation of the L3, L4, L5 medial branches with fluoroscopic guidance bilaterally SURGEON: Ra Oneil MD. ANESTHESIA: Lidocaine 1% 5 mL, Moderate sedation with intravenous Versed and fentanyl, EBL: Minimal Fluoroscopy was used for the procedure and images were saved in the radiology portion of the chart. PROCEDURE INDICATION: The patient with low back pain secondary to lumbar facet arthropathy who had more than 50% relief of pain with previous diagnostic lumbar medial branch block X2 and previous RFA (last 11/2019). PROCEDURE DESCRIPTION / TECHNIQUE: The patient was seen and identified in the preoperative area. Risks, benefits, complications, including but not limited to risk of infection ,bleeding , allergic reactions to the medications and incomplete pain relief , and alternatives were discussed with the patient, the patient agreed to proceed with the procedure and signed the consent. IV was started. The operative site was marked. Patient was taken to the OR and time out was completed. The patient was placed in the prone position on the procedure table. The lumbar area was prepped and draped in the usual sterile fashion. . Vital signs were closely monitored during the procedure .IV sedation was used during the procedure to decrease patients anxiety. Using AP and then oblique fluoroscopy, the "eye of the Kev dog" corresponding to the connection between the superior and transverse articular processes of the L4 and L5 as well as the sacral ala were identified, marked, and localized with 1% lidocaine. Subsequently, an 18 guage 150 radiofrequency cannula with a 10-mm active tip was advanced guided by fluoroscopy to the identified target at each site. Needle positioning was confirmed on AP, oblique and lateral fluoroscopy. Motor testing at 2.5 Hz was done with paraspinal muscle stimulation only, and no radicular symptoms down the legs. Then 1 mL of 4% lidocaine was injected in each site. Radiofrequency thermocoagulation at 80 degrees celsius for 90 seconds was then performed. [place] were removed. Sterile dressings were applied. COMPLICATIONS: No acute complications. DISPOSITION / PLANS: The patient was placed in a supine position and transferred to the recovery area in a stable condition for observation and was discharged from the recovery room after meeting discharge criteria. Home discharge instructions given to the patient by the staff. The patient will follow up in clinic in 4 weeks.
[2020-08-30] MEDS ORDERED: IV FLUID CONTINUATION 1,000 ML IV ONE (07:54)
[2020-08-30 07:57] VITALS: PULSE 61
[2020-08-30 08:12] VITALS: BP 124/78
--- NOTE | 2020-08-30 09:44 | FL ---
EXAMINATION TYPE: FL guided pain mgmt statistic DATE OF EXAM: 08/30/2020 HISTORY: Fluoroscopy time 1 minute and 8 seconds of fluoroscopy provided. IMPRESSION: 1. Fluoroscopy time.
== END 2020-08-30 08:33 | disposition home or self-care (01) ==
LOC: ORPAIN 06:04
PROVIDERS: ATTEND Anesthesiology
DX: M47.816 Spondylosis without myelopathy or radiculopathy, lumbar region (principal); I10 Essential (primary) hypertension; E66.9 Obesity, unspecified; Z68.35 Body mass index [BMI] 35.0-35.9, adult; M10.9 Gout, unspecified
CPT/HCPCS: 64635; 64636; J2250; J2001; J3010; J2795

== ENCOUNTER → 2020-09-23 | Outpatient (CLI) | payer BC ==
[2020-09-23 10:35] VITALS: BP 139/86; PULSE 83; RESP 18; TEMP 97.9
--- NOTE | 2020-09-23 11:16 | P.PN ---
Subjective Progress Note Date: 09/23/20 Oscar is a 60-year-old gentleman who presents today for follow-up after having bilateral lumbar radiofrequency ablation. He reports that his pain has improved by greater than 80%. He initially presented with a VAS of 8 out of 10 on a regular basis. He reports his VAS now is currently 1-2 out of 10 on most days. He still has some discomfort with excessive activity but reports the pain is much improved. He is happy with the results. He denies any side effects and the procedure. He denies any new onset lower extremely weakness numbness or tingling. Review of Systems: Denies any New chest pain, short of breath, Nausea/vomitting, abdominal pain, bowel or bladder incontinence, or any overt new neurologic symptoms in the upper or lower extremities outside of what is noted in the HPI Objective - Vital Signs Vital signs: Vital Signs Temp 97.9 F 09/23/20 10:31 Pulse 83 09/23/20 10:31 Resp 18 09/23/20 10:31 BP 139/86 09/23/20 10:31 Pulse Ox 96 09/23/20 10:31 - Exam General: Awake and alert oriented 3 no distress Respiratory exam: No audible wheezing no accessory muscle usage Cardiovascular exam: regular rate, palpable bilateral pulses, no lower extremity edema Abdominal exam: No distention nontender to palpation Cervical spine: Normal alignment, Spurling's negative, facet loading negative, Bowling Pin Refinisher strength is 5/5, blanchard negative Lumbar spine: There is a loss of lumbar lordosis with an obese midline. He is nontender to palpation over the lumbar spine. The skin appears normal. He has no evidence of any erythema or fluctuance. Flexion extension lumbar spine cause mild pain. Lower extremity strength is normal bilateral Neuro exam: Normal sensation in bilateral upper extremities, deep tendon reflexes are 2+ bilateral upper extremities. Normal sensation in bilateral lower extremities. Deep tendon reflexes are 1+ in lower extremities Psych exam: Cooperative, appropriate mood Assessment and Plan Assessment: 1 lumbar spondylosis without myelopathy #2 lumbar degenerative disc disease #3 obesity Plan: The patient has done very well from the lumbar radiofrequency ablation. We discussed continued daily exercises to strengthen his lumbar spine and core muscles. We discussed that the lumbar spinous denervated adhesions still patient attention to any pain symptoms and avoid any strenuous activity which may further worsen his pain. He verbalized understanding and will follow up with the patient has needed in the future. He is to have a repeat of the injection in the next 4 months we can schedule him for that directly. I have spent 21 minutes on patient care today. The time was used to review the medical records including relevant urine studies and Prescription history (MAPs), review of the available imaging, evaluation and examination of the patient, coordination of care with the medical staff and if applicable referring physicians, as well as creation of the medical record.
== END ==
LOC: PNWHC3 10:27
PROVIDERS: ATTEND Hospitalist
DX: M47.816 Spondylosis without myelopathy or radiculopathy, lumbar region (principal); M51.36 Other intervertebral disc degeneration, lumbar region; E66.9 Obesity, unspecified; Z68.36 Body mass index [BMI] 36.0-36.9, adult
CPT/HCPCS: 99211

== ENCOUNTER → 2020-12-16 | Outpatient (CLI) | payer BC, MEDICARE ==
[~2020-12-16] MED LIST changes: -ACETAMINOPHEN TAB 500 MG TAB PO ONE; -DEXAMETHASONE SOD PHOSPHATE 10 MG/ML 1 ML VIAL IV ONE; +DOBUTamine DRIP for NUC MED 500 MG in DEXTROSE/WATER 1 250ML.BAG IV PRN; -HYDROmorphone 0.5 MG/0.5 ML SYRINGE IVP PRN; -LIDOCAINE 1% 20 ML VIAL (10MG/ML) FOR IV START INTRADERMA PRN; -MELOXICAM 7.5 MG TAB PO ONE; -MIDAZOLAM 2 MG/2 ML VIAL IV PRN; -ONDANSETRON 4 MG/2 ML VIAL IVP ONE; -SCOPOLAMINE 1.5MG/72HR PATCH TRANSDERM ONE; -TRANEXAMIC ACID 1,000 MG in SODIUM CHLORIDE 0.9% 100 ML IVPB ONE; -ceFAZolin IN SWFI 2 GM/20 ML SYRINGE IVP ONE
--- NOTE | 2020-12-16 14:58 | ECHOS ---
STRESS ECHOCARDIOGRAM DATE OF SERVICE: 12/16/20 INDICATIONS: DSE BASELINE HEART RATE: 53 BASELINE BLOOD PRESSURE: 142/82 MAXIMUM HEART RATE: 121 MAXIMUM BLOOD PRESSURE: 142/82 85% MPHR: 135 100% MPHR: 159 METS: MAXIMUM STAGE REACHED: IV TOTAL EXERCISE TIME: 10:36 RESULTS: Baseline rhythm is sinus mechanism, rate 53, normal axis and intervals. Nonspecific ST- T wave changes. Baseline blood pressure 142/82 mmHg. Patient received infusion of dobutamine per protocol, peak rate 133 beats per minute which is equal to 83% maximum predicted heart rate. Peak blood pressure 131/62 mmHg. Electrocardiograph monitoring revealed occasional single PVCs. There was a [address]-segment depression at peak infusion. The baseline was suboptimal. Baseline echocardiogram revealed normal wall motion. At peak infusion, there was normal wall motion augmentation with no hypokinesis or dyskinesis. CONCLUSION: 1. Nondiagnostic electrocardiographic dobutamine stress test secondary to the artifact on the baseline with borderline ST-segment depression. 2. Normal stress echocardiogram with no evidence of stress-induced ischemia. MMODL / IJN: [id number] /
== END | disposition home or self-care (01) ==
LOC: RADNMMAIN 09:40
PROVIDERS: ATTEND Family Medicine
DX: R06.00 Dyspnea, unspecified (principal)
CPT/HCPCS: 93351; Q9950

== ENCOUNTER → 2021-09-03 | Outpatient (CLI) | payer BC, MEDICARE ==
--- NOTE | 2021-09-03 14:12 | P.PN ---
Subjective Progress Note Date: 09/03/21 Principal diagnosis: A 61 yr old male with a history of severe and chronic low back pain secondary to lumbar degenerative disc diseases and lumbar spondylosis with facet arthropathy presents today for evaluation. Pain level is 8 out of 10, constant, sharp, tight, stabbing sensation in the lower aspects of his lumbar spine, right greater than left, with radiation of pain down the lower extremities. Pain is provoked by bending, twisting and lifting. Pain is alleviated with medications, repositioning, physical therapy 2 years ago which was ineffective, home stretching regimen and rest. Interventional pain procedures completed include BL RFA L3-5 Patient is currently on Motrin Patient denies any side effects of the medication(s), denies excessive drowsiness or sleepiness, denies suicidal ideation and reports that the current pain medication is helping to control the pain and improve activities of daily living. Patient denies any motor or sensory deficits. Patient denies any fever or night sweats, denies any change in the bowel movements or urination. Physical Examination: -Constitutional: Cooperative. Not in acute distress . -HEENT: Neck is supple. No lymphadenopathy. No thyromegaly. Normal thyroid size. Eyes: No ptosis , no icterus, no photophobia. ENT: No auditory deficits. Normal oropharynx. No Thrush. - Respiratory: Chest clear to auscultations bilaterally. No wheezing. No rhonchi. - Cardiovascular: Regular rate and rhythm. S1 / S2 , no S3 , no S4. - Gastrointestinal: Abdomen soft no tenderness. Bowel sounds positive in all four quadrants. No organomegaly. - Genitourinary: Deferred. - Neurologic: Cranial nerve II to XII intact. No focal neurological deficits. - Psychatric: Alert & oriented x 3. Matching mood & appropriate affect. Judgment and insight intact. - Lymphatic: No Lymphadenopathy. - Musculoskeletal: Cervical spine: Muscle bulk/ tone/ strength in the bilateral upper extremities normal. Facet loading test cervical area positive. Lumbar spine: Motor bulk/ tone/ strength lower extremities , thigh and legs : 5/5 Deep tendon reflexes : Normal Knee Jerk. Normal Ankle Jerk . Vertebral body tenderness to palpation over Lumbar Facet Loading Test positive over L4-L5, L5-S1, R>L Straight Leg Raise: positive at 30 degrees right side/ left side Gaenslen's Test positive Sacral spine : Severe tenderness over the Sacroiliac joint: right side / left side Range of motion: Flexion of the lumbar spine <60 degrees Range of motion: Extension of the lumbar spine <20 degrees Gaenslen's Test positive Kori test: positive right side / left side Assessment and plan: Chronic low back pain secondary to lumbar degenerative disc disease , lumbar spondylosis with facet arthropathy without myelopathy Recommendation of bilateral RFA of L4-L5, L5-S1. Risks, benefits of procedure discussed and patient verbalizes understanding. Denies anticoagulant use. Denies medical history of diabetes. All patient questions answered MAPS reviewed and it was appropriate. I have spent 31 minutes on patient care today. Dr Arroyo was available by phone for the evaluation of this patient. The time was used to review the medical records including relevant urine studies and Prescription history (MAPs), review of the available imaging, evaluation and examination of the patient, coordination of care with the medical staff and if applicable referring physicians, as well as creation of the medical record PQRS Measure Charge Sheet PQRS Narrative: Smoking Status Never smoker Hx Alcohol Use (MH) Yes Home Medications: Ambulatory Orders allopurinoL [Zyloprim] 100 mg PO DAILY 07/12/18 Chlorthalidone 25 mg PO DAILY 07/25/18 Potassium 99 mg PO DAILY 10/26/18 Ibuprofen 800 mg PO TID 06/03/20
[2021-09-03 14:14] VITALS: BP 151/87; PULSE 66; RESP 18; TEMP 97.9
== END | disposition home or self-care (01) ==
LOC: PNWHC3 12:56
PROVIDERS: ATTEND Specialist
DX: M51.36 Other intervertebral disc degeneration, lumbar region (principal); M47.896 Other spondylosis, lumbar region; M46.86 Other specified inflammatory spondylopathies, lumbar region
CPT/HCPCS: 99211

== ENCOUNTER 2021-10-17 07:42 | Day surgery (SDC) | payer BC, MEDICARE ==
[2021-10-16 11:03] VITALS: BMI 37.6
[~2021-10-17 07:42] MED LIST changes: -DOBUTamine DRIP for NUC MED 500 MG in DEXTROSE/WATER 1 250ML.BAG IV PRN; +LACTATED RINGERS 1,000 ML IV SCH; +LIDOCAINE 1% (10MG/ML) FOR IV START INTRADERMA PRN
[2021-10-17 08:02] VITALS: TEMP 96.8
[2021-10-17] MEDS ORDERED: methylPREDNISolone ACETATE 40 MG/ML 1 ML VIAL ONE (08:38)
[2021-10-17] MEDS ORDERED: fentaNYL (PF) 50 MCG/ML 2 ML AMP ONE (08:38)
[2021-10-17] MEDS ORDERED: ROPIVACAINE 5MG/ML 20ML VIAL ONE (08:38)
[2021-10-17] MEDS ORDERED: MIDAZOLAM 2 MG/2 ML VIAL ONE (08:38)
--- NOTE | 2021-10-17 09:16 | P.PCN ---
Date of Procedure: 10/17/21 Procedure(s) Performed: PREOPERATIVE DIAGNOSIS: 1-Lumbar Spondylosis with Facet Arthropathy without myelopathy. 2- Lumber degenerative disc disease. POSTOPERATIVE DIAGNOSIS: 1- Lumbar Spondylosis with Facet Arthropathy without myelopathy. 2- Lumber degenerative disc disease. PROCEDURES : Bilateral Radiofrequency thermocoagulation, L3 , L4 , and L5 medial branch, with fluoroscopic guidance (fluoroscopy images available in the radiology department) ( to denervate the facet joint at bilateral L4-5 ,and L5-S1 levels ). ANESTHESIA: Monitored anesthesia care as per anesthesia department . EBL: Minimal PROCEDURE INDICATION: The patient with low back pain secondary to lumbar facet arthropathy who had more than 50% relief of her pain with previous diagnostic lumbar medial branch block with bupivacaine. PROCEDURE DESCRIPTION / TECHNIQUE: The patient was seen and identified in the preoperative area. Risks, benefits, complications, including but not limited to risk of infection ,bleeding , allergic reactions to the medications and no complete pain releife , and alternatives were discussed with the patient, the patient agreed to proceed with the procedure and signed the consent. IV was started. Vital signs remained stable throughout the procedure. Patient was taken to the OR and time out was completed. The patient was placed in the prone position on the procedure table. The lumber area was prepped and draped in the usual sterile fashion. . Vital signs were closely monitored during the procedure .IV sedation was used during the procedure to decrease patients anxiety. Using AP and then oblique fluoroscopy, the ``eye of the Kev dog co rresponding to the connection between the superior and transverse articular processes of right L3, L4, and L5 were identified, marked, and localized with 1% lidocaine. Subsequently, a 18 [id number] radiofrequency cannula with a 10- mm active tip was advanced guided by fluoroscopy to each of the``eyes of the Kev dog at right L3, L4, and L5. Each site then underwent sensory testing at 50 Hz and 0 to 1 volt and motor testing at 2.5 Hz and 0 to 3 volt with local stimulation, but no radicular symptoms down the legs. Thereafter each sites underwent radiofrequency thermocoagulation at 80 degrees celsius for 90 seconds after injecting 0.5 ml of PF Ropivacaine 1ml, then after the thermocoagulation done , 1 ml of the block solution containing Depo-Medrol 20 mg and 3 ml of Ropivacaine 0.5% was injected at the right L3 , L4 , and L5 , levels after negative aspiration of CSF and blood and with no paresthesias. Cannulas were retracted while injecting lidocaine 1% until the needle is out. The same procedure was repeated at the level of Left L3, L4, and L5 levels. At the end of the procedure, the skin was cleansed and bandages were applied. COMPLICATIONS: No acute complications. DISPOSITION / PLANS: The patient was placed in a supine position and transferred to the recovery area in a stable condition for observation and was discharged from the recovery room after meeting discharge criteria. Home discharge instructions given to the patient by the staff. The patient was reexamined prior to discharge. The patient will schedule a follow up in the clinic in 2-4 weeks.
[2021-10-17 09:39] VITALS: BP 135/87; PULSE 69; RESP 15
--- NOTE | 2021-10-17 09:56 | FL ---
Fluoroscopy HISTORY: Pain 46 seconds fluoroscopy time supplied to the referring clinician. 5 intraoperative C-arm images docum ent the procedure. See dictated report from anesthesia.
== END 2021-10-17 09:51 | disposition home or self-care (01) ==
LOC: ORPAIN 07:42
PROVIDERS: ATTEND Specialist
DX: M47.816 Spondylosis without myelopathy or radiculopathy, lumbar region (principal)
CPT/HCPCS: 64635; 64636; J2250; J1030; J3010; J2795

== ENCOUNTER → 2021-11-19 | Outpatient (CLI) | payer BC, MEDICARE ==
[2021-11-19 08:49] VITALS: BP 150/89; PULSE 61; RESP 18; TEMP 98
--- NOTE | 2021-11-19 08:49 | P.PAINPG ---
PQRS Measure Charge Sheet Comment: A 61 yr old male with a history of severe and chronic low back pain secondary to lumbar degenerative disc diseases and lumbar spondylosis with facet arthropathy presents today for evaluation status post BL RFA L3-L5. Pt states he experienced 80% pain relief x 4 wks s/p procedure. Pain level is currently at 1/10 in intensity, dull/ achy in the lower aspects of the lumbar spine and provoked by sitting in one position for periods of 30 min or more. Pain is alleviated with medications (ibuprofen), injections, ice, heat, physical therapy for 8 weeks in 2019, and laying supine with lower extremities elevated, repositioning and rest. Interventional pain procedures completed include BL RFA L3-L5 Patient is currently on Ibuprofen Patient denies any side effects of the medication(s), denies excessive drowsiness or sleepiness, denies suicidal ideation and reports that the current pain medication is helping to control the pain and improve activities of daily living. Patient denies any motor or sensory deficits. Patient denies any fever or night sweats, denies any change in the bowel movements or urination. Physical Examination: -Constitutional: Cooperative. Not in acute distress . - Neurologic: Cranial nerve II to XII intact. No focal neurological deficits. - Psychatric: Alert & oriented x 3. Matching mood & appropriate affect. Judgment and insight intact. - Musculoskeletal: Cervical spine: Muscle bulk/ tone/ strength in the bilateral upper extremities normal Vertebral body tenderness to palpation over Spurling test positive Distraction test positive Facet loading test positive Thoracic spine Muscle bulk / tone/ strength in the bilateral paraspinal muscles normal Vertebral body tender to palpation over Facet loading test positive Lumbar spine: Motor bulk/ tone/ strength lower extremities , thigh and legs : 5/5 Deep tendon reflexes : Normal Knee Jerk. Normal Ankle Jerk . Vertebral body tenderness to deep palpation over BL L4-L5, L5-S1 Lumbar Facet Loading Test positive Straight Leg Raise: positive at 30 degrees right side/ left side Gaenslen's Test positive Sacral spine : Severe tenderness over the Sacroiliac joint: right side / left side Range of motion: Flexion of the lumbar spine <60 degrees Range of motion: Extension of the lumbar spine <20 degrees Gaenslen's Test positive Lane's Test positive Kori test: positive right side / left side Thigh Thrust Test Sacral Thrust Test Assessment and plan: Chronic low back pain secondary to lumbar degenerative disc disease , lumbar spondylosis with facet arthropathy without myelopathy Pt exhibited sufficient and satisfactory pain relief s/p procedure. He will use home pain management modifications to control pain in the meantime and will return to our clinic on an as needed basis. Risks, benefits of procedure discussed and pt verbalized understanding. Denies anticoagulant use or medical history of diabetes. All patient questions answered MAPS reviewed and it was appropriate. I have spent less than 30 minutes on patient care today. Dr Arroyo was available by phone for the evaluation of this patient. The time was used to review the medical records including relevant urine studies and Prescription history (MAPs), review of the available imaging, evaluation and examination of the patient, coordination of care with the medical staff and if applicable referring physicians, as well as creation of the medical record PQRS Narrative: Smoking Status Never smoker Hx Alcohol Use (MH) Yes Home Medications: Ambulatory Orders allopurinoL [Zyloprim] 100 mg PO DAILY 07/12/18 Chlorthalidone 25 mg PO DAILY 07/25/18 Potassium 99 mg PO DAILY 10/26/18 Ibuprofen 800 mg PO TID 06/03/20 Controlled Substance Measures - Controlled Substance Measures Is patient prescribed a controlled substance at discharge?: No
== END | disposition home or self-care (01) ==
LOC: PNWHC3 08:25
PROVIDERS: ATTEND Specialist
DX: M47.896 Other spondylosis, lumbar region (principal); M51.36 Other intervertebral disc degeneration, lumbar region
CPT/HCPCS: 99211

== ENCOUNTER → 2022-04-23 | Outpatient (CLI) | payer BC, MEDICARE ==
[2022-04-23 12:33] VITALS: BP 158/95; PULSE 65; RESP 18; TEMP 98.2
--- NOTE | 2022-04-23 14:46 | P.PAINPG ---
PQRS Measure Charge Sheet Comment: A 61 yr old male with a history of severe and chronic low back pain secondary to lumbar DDD and spondylosis with facet arthropathy without myelopathy presents today for LBP. Pain level is currently at 7/10 in intensity, constant, localized in the lower lumbar spine, sharp in character w shooting towards the BLEs. Pain is provoked by standing/ walking for periods of 15 min or more. Pain is alleviated with PT 2 yrs ago which was not helping, medicatinos (Ibu), heating pad use, repositioning and rest. Interventional pain procedures completed include BL RFA L3-L5 Patient is currently on Ibuprofen Patient denies any side effects of the medication(s), denies excessive drowsiness or sleepiness, denies suicidal ideation and reports that the current pain medication is helping to control the pain and improve activities of daily living. Patient denies any motor or sensory deficits. Patient denies any fever or night sweats, denies any change in the bowel movements or urination. Physical Examination: -Constitutional: Cooperative. Not in acute distress . - Neurologic: Cranial nerve II to XII intact. No focal neurological deficits. - Psychatric: Alert & oriented x 3. Matching mood & appropriate affect. Judgment and insight intact. - Musculoskeletal: Cervical spine: Muscle bulk/ tone/ strength in the bilateral upper extremities normal Vertebral body tenderness to palpation over Spurling test positive Distraction test positive Facet loading test positive Thoracic spine Muscle bulk / tone/ strength in the bilateral paraspinal muscles normal Vertebral body tender to palpation over Facet loading test positive Lumbar spine: Motor bulk/ tone/ strength lower extremities , thigh and legs : 5/5 Deep tendon reflexes : Normal Knee Jerk. Normal Ankle Jerk . Vertebral body tenderness to palpation over L4 Lumbar Facet Loading Test positive Straight Leg Raise: positive at 30 degrees right side/ left side Gaenslen's Test positive Sacral spine : Severe tenderness over the Sacroiliac joint: right side / left side Range of motion: Flexion of the lumbar spine <60 degrees Range of motion: Extension of the lumbar spine <20 degrees Gaenslen's Test positive Kori test: positive right side / left side Thigh Thrust Test Sacral Thrust Test Assessment and plan: Chronic low back pain secondary to lumbar degenerative disc disease, spondylosis with facet arthropathy without myelopathy Recommendation of CHINYERE L4-L5. May need a series, up to 3 within a 6mo period, for optimal pain relief. Risks, benefits of procedure discussed and pt verbalized understanding. Admits anticoagulant use or medical history of diabetes. Protocol discontinuation/ continuation of medications german procedure discussed. All patient questions answered I have spent less than 30 minutes on patient care today. Dr Arroyo was available by phone for the evaluation of this patient. The time was used to review the medical records including relevant urine studies and Prescription history (MAPs), review of the available imaging, evaluation and examination of the patient, coordination of care with the medical staff and if applicable referring physicians, as well as creation of the medical record PQRS Narrative: Smoking Status Never smoker Hx Alcohol Use (MH) Yes Home Medications: Ambulatory Orders allopurinoL [Zyloprim] 100 mg PO DAILY 07/12/18 Chlorthalidone 25 mg PO DAILY 07/25/18 Potassium 99 mg PO DAILY 10/26/18 Ibuprofen 800 mg PO TID 06/03/20 Controlled Substance Measures - Controlled Substance Measures Is patient prescribed a controlled substance at discharge?: No
== END ==
LOC: PNWHC3 11:57
PROVIDERS: ATTEND Specialist
DX: M47.816 Spondylosis without myelopathy or radiculopathy, lumbar region (principal); G89.29 Other chronic pain; M51.36 Other intervertebral disc degeneration, lumbar region; E11.9 Type 2 diabetes mellitus without complications; Z79.82 Long term (current) use of aspirin; Z79.01 Long term (current) use of anticoagulants
CPT/HCPCS: 99211

== ENCOUNTER 2022-05-28 05:59 | Day surgery (SDC) | payer BC, MEDICARE ==
[2022-05-26 12:46] VITALS: BMI 37.6
[2022-05-28] MEDS ORDERED: LIDOCAINE 1% (10MG/ML) FOR IV START INTRADERMA PRN (06:08)
[2022-05-28] MEDS ORDERED: LACTATED RINGERS 1,000 ML IV SCH (06:08)
[2022-05-28 06:20] VITALS: TEMP 97.2
[2022-05-28] MEDS ORDERED: IOPAMIDOL M200 10 ML VIAL ONE (06:58)
--- NOTE | 2022-05-28 07:11 | P.PCN ---
Date of Procedure: 05/28/22 Procedure(s) Performed: PREOPERATIVE DIAGNOSIS: 1- Lumbar Degenerative Disc Diseases 2-Lumbar spondylosis with Facet arthropathy without myelopathy. POSTOPERATIVE DIAGNOSIS: Same as preop diagnosis. PROCEDURE 1. Lumbar epidural steroid injection under fluoroscopic guidance at the L4- 5level. (Fluoroscopy imaging was available in radiology department) 2. Lumbar epidurogram. ANESTHESIA: Local anesthesia with lidocaine 1% 3 ml only EBL: Minimal PROCEDURE INDICATION: The patient with low back pain and radiculitis symptoms unresponsive to conservative treatment. Fluoroscopy was used to optimize visualization of the needle placement and to maximize safety. PROCEDURE DESCRIPTION / TECHNIQUE: The patient was seen and identified in the preoperative area. Risks, benefits, complications including but not limited to infections ,bleeding ,allergic reaction to the medications ,nerve damage and not complete pain releife , and alternatives were discussed with the patient. The patient agreed to proceed with the procedure and signed the consent, and vital signs were stable. Patient was taken to the OR and time out was completed. The patient was placed in the prone position on procedure table and a pillow was placed under the abdomen to reduce lumbar lordosis. The lumbosacral area was prepped and draped in the usual sterile fashion.ere closely monitored during the procedure.. Vital signs was monitered during the entire procedure. Using anterior-posterior fluoroscopy, the L4-5 interlaminar space was identified and the skin over this site was marked and then infiltrated with 1% lidocaine subcutaneously. Subsequently, a 20-gauge Tuohy epidural needle was inserted and advanced toward the epidural space using the ``Loss of resistance technique and guided by AP and lateral fluoroscopy. The correct needle position in the epidural space was verified with the injection of 2 mL of the water soluble contrast dye Isovue 300 contrast and observing an excellent epidurogram with the epidural spread of the dye, after negative aspiration for blood and CSF and in the absence of paresthesias. Again after negative aspiration, a 6 ml mixture containing 80 mg of Depo-medrol ( Preservetive Free ), and 2 ml of preservative free Normal Saline, and 2 ml of preservative free lidocaine 1% solution was injected and a washout of epidurogram was seen. Needle was withdrawn intact, skin was cleansed, and bandages were applied. COMPLICATIONS: None DISPOSITION / PLANS: The patient was placed in a supine position and transferred to the recovery area in a stable condition for observation. There was no evidence of lower extremity motor or sensory deficit after the procedure. Patient was discharged from the recovery room after meeting discharge criteria. Home discharge instructions were given to the patient by the staff. The patient was reexamined prior to discharge. The patient will schedule a follow up in the clinic in 2-4 weeks.
[2022-05-28 07:18] VITALS: BP 129/83; PULSE 74; RESP 16
--- NOTE | 2022-05-28 09:33 | FL ---
EXAMINATION TYPE: FL guided pain mgmt statistic DATE OF EXAM: 05/28/2022 FLUOROSCOPY Fluoroscopy time of 3 seconds was used during lumbar transforaminal epidural steroid injection. 1 im age/s document/s the procedure.
== END 2022-05-28 07:29 | disposition home or self-care (01) ==
LOC: ORPAIN 05:59
PROVIDERS: ATTEND Specialist
DX: M51.16 Intervertebral disc disorders with radiculopathy, lumbar region (principal); M47.26 Other spondylosis with radiculopathy, lumbar region
CPT/HCPCS: 62323; Q9966

== ENCOUNTER 2022-06-03 09:44 | Day surgery (SDC) | payer BC, MEDICARE ==
[2022-05-29 10:53] VITALS: BMI 37.6
[2022-06-03 10:25] VITALS: TEMP 97
[2022-06-03] MEDS ORDERED: LIDOCAINE 2% INJ 20 MG/ML (2 ML VIAL) ONE (10:47)
[2022-06-03] MEDS ORDERED: PROPOFOL 10 MG/ML 20 ML VIAL IV ONE (10:47)
--- NOTE | 2022-06-03 11:06 | P.PCN ---
Date of Procedure: 06/03/22 Procedure(s) Performed: BRIEF HISTORY: Patient is a 61-year-old, pleasant, white male scheduled for an upper endoscopy as a part of evaluation of GERD and intermittent dysphagia to solids for the last 2 months duration. He was recently started on Pepcid 20 mg daily with no help. He scheduled for an upper endoscopy with a possible dilation today. PROCEDURE PERFORMED: Esophagogastroduodenoscopy with biopsy. PREOPERATIVE DIAGNOSIS: GERD/intermittent dysphagia to solids. IV sedation per anesthesia. PROCEDURE: After informed consent was obtained, the patient was brought into the endoscopy unit. IV sedation was administered by Anesthesia under continuous monitoring. Initially the Olympus GIF-140 video endoscope was inserted into the mouth. Esophagus intubated without any difficulty. It was gradually advanced into the stomach and duodenum and carefully examined. The bulb and the second part of the duodenum appeared normal. The scope at this time was withdrawn to the stomach, adequately insufflated with air, and upon careful examination, mucosa of the antrum, and mild gastritis and biopsies were done from this area. There was large amount of fluid in the stomach suggestive of gastroparesis but there is no evidence of gastric outlet obstruction. The visualized portions of the body, cardia and the fundus appeared normal. The scope was then withdrawn into the esophagus. The GE junction was located at 45 cm from the incisors. The esophagus appeared normal. There were no erosions or ulcerations seen. No evidence of esophageal stricture. Biopsies were done from the distal esophagus and the patient tolerated the procedure well. IMPRESSION: 1. Large amount of retained solid food in the stomach suggestive of gastroparesis. 2. Mild antral gastritis 3. No evidence of esophagitis or esophageal stricture. RECOMMENDATIONS: The findings of this examination were discussed with the patient as his family. He was advised to follow with the biopsy results. His symptoms are related to gastroparesis and hence recommend small frequent meahe was advised to stop Pepcid. He was given a prescription for Prilosec 20 mg daily and was briefly educated about antireflux measures
[2022-06-03 11:23] VITALS: RESP 20
[2022-06-03 12:48] VITALS: BP 123/70; PULSE 68
== END 2022-06-03 12:00 | disposition home or self-care (01) ==
LOC: ORWHC2ENDO 09:44
PROVIDERS: ATTEND Internal Medicine Gastroenterology
DX: K29.50 Unspecified chronic gastritis without bleeding (principal); K21.00 Gastro-esophageal reflux disease with esophagitis, without bleeding; I10 Essential (primary) hypertension; G47.33 Obstructive sleep apnea (adult) (pediatric); Z79.1 Long term (current) use of non-steroidal anti-inflammatories (NSAID); Z79.83 Long term (current) use of bisphosphonates; Z98.890 Other specified postprocedural states; Z96.643 Presence of artificial hip joint, bilateral; E66.01 Morbid (severe) obesity due to excess calories
CPT/HCPCS: 43239; J2704; J2001; 88305

== ENCOUNTER → 2022-06-15 | Outpatient (CLI) | payer BC, MEDICARE ==
[2022-06-15 08:11] VITALS: BP 132/91; PULSE 66; RESP 18; TEMP 98
--- NOTE | 2022-06-15 14:29 | P.PAINPG ---
PQRS Measure Charge Sheet Comment: A 61 yr old male with a history of severe and chronic LBP x 4 yrs secondary to lumbar DDD and spondylosis with facet arthropathy without myelopathy presents today for evaluation s/p CHINYERE L4-L5. Pt states he experienced 90% pain relief x 7 mo s/p BL RFA L3-L4 procedure. Pain level is provoked at 1 /10 in intensity, intermittent, localized in the lumbar spine, sore in character w shooting towards . Pain is provoked by . Pain is alleviated with PT in 2019 which didnt help or worsen pain, home exercise regularly, injections, heat, medicatins (Ibu), reclining, repositioning and rest. Interventional pain procedures completed include CHINYERE L4-L5 x1, BL RFA L3-L5 Patient is currently on Ibu Patient denies any side effects of the medication(s), denies excessive drowsiness or sleepiness, denies suicidal ideation and reports that the current pain medication is helping to control the pain and improve activities of daily living. Patient denies any motor or sensory deficits. Patient denies any fever or night sweats, denies any change in the bowel movements or urination. Physical Examination: -Constitutional: Cooperative. Not in acute distress . - Neurologic: Cranial nerve II to XII intact. No focal neurological deficits. - Psychatric: Alert & oriented x 3. Matching mood & appropriate affect. Judgment and insight intact. - Musculoskeletal: Cervical spine: Muscle bulk/ tone/ strength in the bilateral upper extremities normal Vertebral body tenderness to palpation over Spurling test positive Distraction test positive Facet loading test positive Thoracic spine Muscle bulk / tone/ strength in the bilateral paraspinal muscles normal Vertebral body tender to palpation over Facet loading test positive Lumbar spine: Motor bulk/ tone/ strength lower extremities , thigh and legs : 5/5 Deep tendon reflexes : Normal Knee Jerk. Normal Ankle Jerk . Vertebral body tenderness to palpation over Lumbar Facet Loading Test positive Straight Leg Raise: positive at 30 degrees right side/ left side Gaenslen's Test positive Sacral spine : Severe tenderness over the Sacroiliac joint: right side / left side Range of motion: Flexion of the lumbar spine <60 degrees Range of motion: Extension of the lumbar spine <20 degrees Gaenslen's Test positive Kori test: positive right side / left side Thigh Thrust Test Sacral Thrust Test Assessment and plan: Chronic LBP secondary to lumbar DDD, spondylosis with facet arthropathy without myelopathy Pt exhibited sufficient and substantial pain relief w prior CHINYERE procedure. Pt will manage residual pain and may return to clinic as needed. All patient questions answered I have spent less than 30 minutes on patient care today. Dr Arroyo was available by phone for the evaluation of this patient. The time was used to review the medical records including relevant urine studies and Prescription history (MAPs), review of the available imaging, evaluation and examination of the patient, coordination of care with the medical staff and if applicable referring physicians, as well as creation of the medical record PQRS Narrative: Smoking Status Never smoker Hx Alcohol Use (MH) Yes Home Medications: Ambulatory Orders allopurinoL [Zyloprim] 100 mg PO DAILY 07/12/18 Chlorthalidone 25 mg PO DAILY 07/25/18 Ibuprofen 800 mg PO TID PRN 06/03/20 Calcium Carbonate/Vitamin D3 [Calcium 600 mg-D3 10 Mcg (400 Iu)] 1 each PO DAILY 05/29/22 Controlled Substance Measures - Controlled Substance Measures Is patient prescribed a controlled substance at discharge?: No
== END ==
LOC: PNWHC3 07:24
PROVIDERS: ATTEND Specialist
DX: M47.816 Spondylosis without myelopathy or radiculopathy, lumbar region (principal); M51.36 Other intervertebral disc degeneration, lumbar region; G89.29 Other chronic pain
CPT/HCPCS: 99211

== ENCOUNTER → 2022-08-26 | Outpatient (CLI) | payer BC, MEDICARE ==
--- NOTE | 2022-08-26 14:24 | CT ---
EXAMINATION TYPE: CT abdomen pelvis wo con CT DLP: 981.1 mGycm, Automated exposure control for dose reduction was used. DATE OF EXAM: 08/26/2022 2:07 PM COMPARISON: none CLINICAL INDICATION:Male, 62 years old with history of R10.32; c/o diarrhea TECHNIQUE: Axial CT of the abdomen and pelvis. Sagittal and coronal reformats were created on a [employer] workstation. Contrast used: None Oral contrast used: without Oral Contrast FINDINGS: LOWER CHEST: Unremarkable ABDOMEN LIVER: Right hepatic lobe probable cyst. GALLBLADDER AND BILE DUCTS: Unremarkable. PANCREAS: Unremarkable. SPLEEN: Unremarkable. ADRENAL GLANDS: Unremarkable. KIDNEYS AND URETERS: No evidence of hydronephrosis or renal calculus. The ureters are unremarkable. Right renal cyst. PELVIS BLADDER: Unremarkable REPRODUCTIVE: Unremarkable. ABDOMEN & PELVIS STOMACH AND BOWEL: No evidence of bowel obstruction. Scattered colonic diverticula are present throug hout the colon. The appendix is normal. PERITONEUM/RETROPERITONEUM: No evidence of pneumoperitoneum or free fluid. VASCULATURE: No evidence of aortic aneurysm. MUSCULOSKELETAL: No acute osseous abnormalities bilateral hip arthroplasty changes which limits evalu ation of the pelvis. Hardware appears intact. Multilevel disc degeneration changes throughout the spi ne. LYMPH NODES: No gross evidence for lymphadenopathy. SOFT TISSUE/ABDOMINAL WALL: Unremarkable IMPRESSION: 1. No evidence for acute process. 2. Colonic diverticulosis.
== END | disposition home or self-care (01) ==
LOC: RADCTMAIN 13:29
PROVIDERS: ATTEND Family Medicine
DX: K57.30 Diverticulosis of large intestine without perforation or abscess without bleeding (principal)
CPT/HCPCS: 74176

== ENCOUNTER → 2022-09-14 | Outpatient (CLI) | payer BC, MEDICARE ==
[2022-09-14 08:11] VITALS: BP 145/89; PULSE 71; RESP 18; TEMP 98.3
--- NOTE | 2022-09-14 15:13 | P.PAINPG ---
PQRS Measure Charge Sheet Comment: A 62 yr old male with a history of severe and chronic LBP x yrs secondary to lumbar DDD and spondylosis with facet arthropathy without myelopathy presents today for LBP. Pt admits to having a BL RFA L4-L5, L5-S1 in October 2021 and states he experienced 90% pain relief x 5 mo s/p procedure. Pain level is provoked at 8/10 in intensity, constant, localized in the lumbar spine, sharp in character w/o shooting pain. Pain is provoked by bending. Pain is alleviated with PT 1 1/2 yrs ago which was ineffective, heat, ice, sitting, reclining and rest. Interventional pain procedures completed include CHINYERE L3-L4, BL RFA L3-L5 Patient is currently on Ibu Patient denies any side effects of the medication(s), denies excessive drowsiness or sleepiness, denies suicidal ideation and reports that the current pain medication is helping to control the pain and improve activities of daily living. Patient denies any motor or sensory deficits. Patient denies any fever or night sweats, denies any change in the bowel movements or urination. Physical Examination: -Constitutional: Cooperative. Not in acute distress . - Neurologic: Cranial nerve II to XII intact. No focal neurological deficits. - Psychatric: Alert & oriented x 3. Matching mood & appropriate affect. Judgment and insight intact. - Musculoskeletal: Cervical spine: Muscle bulk/ tone/ strength in the bilateral upper extremities normal Vertebral body tenderness to palpation over Spurling test positive Distraction test positive Facet loading test positive TTP Thoracic spine Muscle bulk / tone/ strength in the bilateral paraspinal muscles normal Vertebral body tender to palpation over Facet loading test positive TTP Lumbar spine: Motor bulk/ tone/ strength lower extremities , thigh and legs : 5/5 Deep tendon reflexes : Normal Knee Jerk. Normal Ankle Jerk . Vertebral body tenderness to palpation over Lumbar Facet Loading Test positive TTP over BL L4-L,5 L5-S1 facets Straight Leg Raise: positive at 30 degrees right side/ left side Gaenslen's Test positive Sacral spine : Severe tenderness over the Sacroiliac joint: right side / left side Range of motion: Flexion of the lumbar spine <60 degrees Range of motion: Extension of the lumbar spine <20 degrees Gaenslen's Test positive right side / left side Kori test: positive right side / left side Thigh Thrust Test positive right side / left side Sacral Thrust Test positive right side / left side Assessment and plan: Chronic LBP secondary to lumbar DDD, spondylosis with facet arthropathy without myelopathy Recommendation of BL RFA L4-L,5 L5-S1. Pt experienced substantial pain relief w prior RFA procedure. Risks, benefits of procedure discussed and pt verbalized understanding. Admits to anticoagulant use or medical history of diabetes. Protocol for discontinuation/ continuation of medications german procedure discussed. All questions answered. I have spent less than 30 minutes on patient care today. Dr Arroyo was available by phone for the evaluation of this patient. The time was used to review the medical records including relevant urine studies and Prescription history (MAPs), review of the available imaging, evaluation and examination of the patient, coordination of care with the medical staff and if applicable referring physicians, as well as creation of the medical record PQRS Narrative: Smoking Status Never smoker Hx Alcohol Use (MH) Yes Home Medications: Ambulatory Orders allopurinoL [Zyloprim] 100 mg PO DAILY 07/12/18 Chlorthalidone 25 mg PO DAILY 07/25/18 Ibuprofen 800 mg PO TID PRN 06/03/20 Calcium Carbonate/Vitamin D3 [Calcium 600 mg-D3 10 Mcg (400 Iu)] 1 each PO DAILY 05/29/22 Controlled Substance Measures - Controlled Substance Measures Is patient prescribed a controlled substance at discharge?: No
== END ==
LOC: PNWHC3 07:28
PROVIDERS: ATTEND Specialist
DX: M51.36 Other intervertebral disc degeneration, lumbar region (principal); G89.29 Other chronic pain; M47.816 Spondylosis without myelopathy or radiculopathy, lumbar region
CPT/HCPCS: 99211

== ENCOUNTER 2022-10-16 06:05 | Day surgery (SDC) | payer BC, MEDICARE ==
[2022-10-16] MEDS ORDERED: LACTATED RINGERS 1,000 ML IV ONE ×2 (06:42→07:55)
[2022-10-16 06:43] VITALS: TEMP 97
[2022-10-16] MEDS ORDERED: methylPREDNISolone ACETATE 40 MG/ML 1 ML VIAL ONE (07:23)
[2022-10-16] MEDS ORDERED: ROPIVACAINE 5 MG/ML 20 ML AMPULE ONE (07:23)
[2022-10-16] MEDS ORDERED: MIDAZOLAM 2 MG/2 ML VIAL ONE (07:23)
[2022-10-16] MEDS ORDERED: fentaNYL (PF) 50 MCG/ML 2 ML AMP ONE (07:23)
--- NOTE | 2022-10-16 07:51 | P.PCN ---
Date of Procedure: 10/16/22 Procedure(s) Performed: PREOPERATIVE DIAGNOSIS: 1-Lumbar Spondylosis with Facet Arthropathy without myelopathy. 2- Lumber degenerative disc disease. POSTOPERATIVE DIAGNOSIS: 1- Lumbar Spondylosis with Facet Arthropathy without myelopathy. 2- Lumber degenerative disc disease. PROCEDURES : Bilateral Radiofrequency thermocoagulation, L3 , L4 , and L5 medial branch, with fluoroscopic guidance (fluoroscopy images available in the radiology department) ( to denervate the facet joint at bilateral L4-5 ,and L5-S1 levels ). ANESTHESIA: Monitored anesthesia care as per anesthesia department . EBL: Minimal PROCEDURE INDICATION: The patient with low back pain secondary to lumbar facet arthropathy who had more than 50% relief of her pain with previous diagnostic lumbar medial branch block with bupivacaine. PROCEDURE DESCRIPTION / TECHNIQUE: The patient was seen and identified in the preoperative area. Risks, benefits, complications, including but not limited to risk of infection ,bleeding , allergic reactions to the medications and no complete pain releife , and alternatives were discussed with the patient, the patient agreed to proceed with the procedure and signed the consent. IV was started. Vital signs remained stable throughout the procedure. Patient was taken to the OR and time out was completed. The patient was placed in the prone position on the procedure table. The lumber area was prepped and draped in the usual sterile fashion. . Vital signs were closely monitored during the procedure .IV sedation was used during the procedure to decrease patients anxiety. Using AP and then oblique fluoroscopy, the ``eye of the Kev silva c orresponding to the connection between the superior and transverse articular processes of right L3, L4, and L5 were identified, marked, and localized with 1% lidocaine. Subsequently, a 18 [id number] radiofrequency cannula with a 10- mm active tip was advanced guided by fluoroscopy to each of the``eyes of the Kev dog at right L3, L4, and L5. Each site then underwent sensory testing at 50 Hz and 0 to 1 volt and motor testing at 2.5 Hz and 0 to 3 volt with local stimulation, but no radicular symptoms down the legs. Thereafter each sites underwent radiofrequency thermocoagulation at 80 degrees celsius for 90 seconds after injecting 0.5 ml of PF Ropivacaine 1ml, then after the thermocoagulation done , 1 ml of the block solution containing Depo-Medrol 20 mg and 3 ml of Ropivacaine 0.5% was injected at the right L3 , L4 , and L5 , levels after negative aspiration of CSF and blood and with no paresthesias. Cannulas were retracted while injecting lidocaine 1% until the needle is out. The same procedure was repeated at the level of Left L3, L4, and L5 levels. At the end of the procedure, the skin was cleansed and bandages were applied. COMPLICATIONS: No acute complications. DISPOSITION / PLANS: The patient was placed in a supine position and transferred to the recovery area in a stable condition for observation and was discharged from the recovery room after meeting discharge criteria. Home discharge instructions given to the patient by the staff. The patient was reexamined prior to discharge. The patient will schedule a follow up in the clinic in 2-4 weeks.
[2022-10-16 07:58] VITALS: RESP 16
[2022-10-16 08:10] VITALS: BP 129/82; PULSE 62
--- NOTE | 2022-10-16 08:59 | FL ---
EXAMINATION TYPE: FL guided pain mgmt statistic DATE OF EXAM: 10/16/2022 CLINICAL HISTORY: Low back pain. TECHNIQUE: Fluoroscopy. COMPARISON: None. FINDINGS: Fluoroscopic guidance was provided during pain relief procedure performed by Dr. Arroyo . A total of 4.9 seconds of fluoroscopic time was utilized during the procedure and 6 spot images ar e acquired. Images acquired shows needle localization at multiple levels in the lumbar spine. IMPRESSION: As Above. Total DAP 0.128
== END 2022-10-16 08:28 | disposition home or self-care (01) ==
LOC: ORPAIN 06:05
PROVIDERS: ATTEND Specialist
DX: M51.36 Other intervertebral disc degeneration, lumbar region (principal); M47.816 Spondylosis without myelopathy or radiculopathy, lumbar region; I10 Essential (primary) hypertension; G47.33 Obstructive sleep apnea (adult) (pediatric); Z99.89 Dependence on other enabling machines and devices; M19.90 Unspecified osteoarthritis, unspecified site; Z79.899 Other long term (current) drug therapy; Z79.1 Long term (current) use of non-steroidal anti-inflammatories (NSAID)
CPT/HCPCS: 64635; 64636 ×2; J2250; J1030; J3010; J2795

== ENCOUNTER → 2022-11-23 | Outpatient (CLI) | payer BC, MEDICARE ==
[2022-11-23 13:30] VITALS: BP 128/86; PULSE 58; RESP 16; TEMP 98.2
--- NOTE | 2022-11-23 14:32 | P.PAINPG ---
PQRS Measure Charge Sheet Comment: A 62 yr old male with a history of severe and chronic LBP secondary to lumbar DDD and spondylosis with facet arthropathy without myelopathy presents today for evaluation s/p BL RFA L3-L5. Pt states he experienced 90% pain relief s/p procedure. Pain level is provoked at 1/10 in intensity, constant, localized in the lumbar spine, dull in character w/o shooting pain Pain is provoked by over activity. Pain is alleviated with injections, medications, repositioning and rest. Oswestry pain score at 3. Interventional pain procedures completed include BL RFA L3-L5 Patient is currently on OTC meds Patient denies any side effects of the medication(s), denies excessive drowsiness or sleepiness, denies suicidal ideation and reports that the current pain medication is helping to control the pain and improve activities of daily living. Patient denies any motor or sensory deficits. Patient denies any fever or night sweats, denies any change in the bowel movements or urination. Physical Examination: -Constitutional: Cooperative. Not in acute distress . - Neurologic: Cranial nerve II to XII intact. No focal neurological deficits. - Psychatric: Alert & oriented x 3. Matching mood & appropriate affect. Judgment and insight intact. - Musculoskeletal: Cervical spine: Muscle bulk/ tone/ strength in the bilateral upper extremities normal Vertebral body tenderness to palpation over Spurling test positive Distraction test positive Facet loading test positive TTP Thoracic spine Muscle bulk / tone/ strength in the bilateral paraspinal muscles normal Vertebral body tender to palpation over Facet loading test positive TTP Lumbar spine: Motor bulk/ tone/ strength lower extremities , thigh and legs : 5/5 Deep tendon reflexes : Normal Knee Jerk. Normal Ankle Jerk . Vertebral body tenderness to palpation over Pool Test positive Lumbar Facet Loading Test positive Straight Leg Raise: positive at 30 degrees right side/ left side Gaenslen's Test positive Sacral spine : Severe tenderness over the Sacroiliac joint: right side / left side Range of motion: Flexion of the lumbar spine <60 degrees Range of motion: Extension of the lumbar spine <20 degrees Gaenslen's Test positive right side / left side Kori test: positive right side / left side Thigh Thrust Test positive right side / left side Sacral Thrust Test positive right side / left side Assessment and plan: Chronic LBP secondary to lumbar DDD, spondylosis with facet arthropathy without myelopathy Will manage residual pain and may return to the clinic on an as needed basis. All questions answered. I have spent less than 30 minutes on patient care today. Dr Arroyo was available by phone for the evaluation of this patient. The time was used to review the medical records including relevant urine studies and Prescription history (MAPs), review of the available imaging, evaluation and examination of the patient, coordination of care with the medical staff and if applicable referring physicians, as well as creation of the medical record PQRS Narrative: Smoking Status Never smoker Hx Alcohol Use (MH) Yes Home Medications: Ambulatory Orders allopurinoL [Zyloprim] 100 mg PO DAILY 07/12/18 Chlorthalidone 25 mg PO DAILY 07/25/18 Ibuprofen 800 mg PO TID PRN 06/03/20 Calcium Carbonate/Vitamin D3 [Calcium 600 mg-D3 10 Mcg (400 Iu)] 1 each PO DAILY 05/29/22 Controlled Substance Measures - Controlled Substance Measures Is patient prescribed a controlled substance at discharge?: No
== END ==
LOC: PNWHC3 12:42
PROVIDERS: ATTEND Specialist
DX: M51.36 Other intervertebral disc degeneration, lumbar region (principal); M47.816 Spondylosis without myelopathy or radiculopathy, lumbar region; G89.29 Other chronic pain; M53.3 Sacrococcygeal disorders, not elsewhere classified
CPT/HCPCS: 99211

== ENCOUNTER → 2023-11-08 | Outpatient (CLI) | payer MEDICARE ==
[2023-11-08 08:35] VITALS: BP 144/88; PULSE 64; RESP 16
--- NOTE | 2023-11-08 14:59 | P.PAINPG ---
PQRS Measure Charge Sheet Comment: A 62 yr old male with a history of severe and chronic LBP secondary to lumbar DDD and spondylosis with facet arthropathy without myelopathy presents today for evaluation. Pt underwent a BL RFA L3-L5 on Oct 16 2022 and states he experienced 90% pain relief x 11 mo s/p procedure. Pain level is provoked at 9 /10 in intensity, constant, predominantly axial, localized in the lumbar spine, dull in character without shooting pain. Pain is provoked by over activity. Pain is alleviated with injections, physician guided exercises every other day since Oct 2022, medications, topical, repositioning and rest. Oswestry pain score at 13. Interventional pain procedures completed include BL RFA L3-L5 (Oct 2022) Patient is currently on OTC meds Patient denies any side effects of the medication(s), denies excessive drowsiness or sleepiness, denies suicidal ideation and reports that the current pain medication is helping to control the pain and improve activities of daily living. Patient denies any motor or sensory deficits. Patient denies any fever or night sweats, denies any change in the bowel movements or urination. Physical Examination: -Constitutional: Cooperative. Not in acute distress . - Neurologic: Cranial nerve II to XII intact. No focal neurological deficits. - Psychatric: Alert & oriented x 3. Matching mood & appropriate affect. Judgment and insight intact. - Musculoskeletal: Cervical spine: Muscle bulk/ tone/ strength in the bilateral upper extremities normal Vertebral body tenderness to palpation over Spurling test positive Distraction test positive Facet loading test positive TTP Thoracic spine Muscle bulk / tone/ strength in the bilateral paraspinal muscles normal Vertebral body tender to palpation over Facet loading test positive TTP Lumbar spine: Motor bulk/ tone/ strength lower extremities , thigh and legs : 5/5 Deep tendon reflexes : Normal Knee Jerk. Normal Ankle Jerk . Vertebral body tenderness to palpation over Pool Test positive Lumbar Facet Loading Test positive BL L4-L5 L5-S1 Straight Leg Raise: positive at 30 degrees right side/ left side Gaenslen's Test positive Sacral spine : Severe tenderness over the Sacroiliac joint: right side / left side Range of motion: Flexion of the lumbar spine <60 degrees Range of motion: Extension of the lumbar spine <20 degrees Gaenslen's Test positive right side / left side Kori test: positive right side / left side Thigh Thrust Test positive right side / left side Sacral Thrust Test positive right side / left side Assessment and plan: Chronic LBP secondary to lumbar DDD, spondylosis with facet arthropathy without myelopathy Recommendation of BL RFA L3-L5. Pt exhibited substantial pain relief w prior BL RFA L3-L5 from Oct 2022. May need a series of injections for optimal pain relief. Risks, benefits of procedure discussed and pt verbalized understanding. Protocol for discontinuation/ continuation of medications german procedure discussed. Minimal anesthesia including Fentanyl and Versed if clinically indicated. All questions answered. I have spent less than 30 minutes on patient care today. Dr Arroyo was a vailable by phone for the evaluation of this patient. The time was used to review the medical records including relevant urine studies and Prescription history (MAPs), review of the available imaging, evaluation and examination of the patient, coordination of care with the medical staff and if applicable referring physicians, as well as creation of the medical record PQRS Narrative: Smoking Status Never smoker Hx Alcohol Use (MH) Yes Home Medications: Ambulatory Orders allopurinoL [Zyloprim] 100 mg PO DAILY 07/12/18 Chlorthalidone 25 mg PO DAILY 07/25/18 Ibuprofen 800 mg PO TID PRN 06/03/20 Calcium Carbonate/Vitamin D3 [Calcium 600 mg-D3 10 Mcg (400 Iu)] 1 each PO DAILY 05/29/22 Controlled Substance Measures - Controlled Substance Measures Is patient prescribed a controlled substance at discharge?: No
== END ==
LOC: PNWHC3 08:04
PROVIDERS: ATTEND Specialist
DX: M48.10 Ankylosing hyperostosis [Forestier], site unspecified (principal); M51.37 Other intervertebral disc degeneration, lumbosacral region; M47.817 Spondylosis without myelopathy or radiculopathy, lumbosacral region; Z88.6 Allergy status to analgesic agent
CPT/HCPCS: 99211

== ENCOUNTER → 2024-01-03 | Outpatient (CLI) | payer MEDICARE | LOC: PNWHC3 11:15 | PROVIDERS: ATTEND Specialist | DX: M47.816 Spondylosis without myelopathy or radiculopathy, lumbar region | CPT/HCPCS: 99211 ==